=== PATIENT | female | born 1995 | race Caucasian/White ===

== ENCOUNTER 2016-08-27 12:54 | Emergency (ER) | payer SELFPAY ==
[~2016-08-27] VITALS: Ht 172.7 cm; Wt 118.4 kg
--- NOTE | 2016-08-27 14:37 | ED GU-Female ---
General Chief Complaint: -Female Stated Complaint: SPOTTING, POSS Nursing Triage Note: PT REPORTS SHE HAD POSITIVE TEST AT HOME AFTER MOTHER'S DAY. SHE HAD A NEGATIVE TEST AT HEALTH DEPT IN [place], [place] 2 MONTHS AGO. SHE REPORTS VAG BLEEDING STARTING LAST NIGHT. Nursing Sepsis Screen: No Definite Risk Source: patient Exam Limitations: no limitations (DOMINICK MOLINA) Source: patient Exam Limitations: other (PT AND BOYFRIEND VERY DIFFICULT/POOR HISTORIANS AND GIVE MUCH CONFLICTING INFORMATION, AND DIFFICULT TO KEEP ON SUBJECT. ) (TAVON GAY DO) History of Present Illness Time seen by provider: 14:37 Initial Comments patient seen, evaluated, and patient care provided by Dr. Gay. (DOMINICK MOLINA) Time seen by provider: 14:15 Initial Comments 1415 PT C/O VAGINAL BLEEDING SINCE LAST PM PT STATES SHE HAS DONE 2 HOME TESTS--DID ONE ON MOTHER'S DAY AND WAS +, THEN WENT TO HEALTH DEPT 2 MONTHS AGO, AND TEST WAS NEGATIVE PT STATES SHE "NEEDS A BLOOD TEST BECAUSE SHE HAS TOO MANY MALE HORMONES" PT HAS ONLY BEEN SPOTTING--BLOOD ON TISSUE WITH WIPING, AND HAS NOT USED ANY PADS NO CRAMPING NO NAUSEA/VOMITING PT HAS NO IDEA WHEN LMP WAS, BUT WAS > 3 MONTHS AGO. --GIVES MUCH CONFLICTING INFORMATION ABOUT DATES. (TAVON GAY DO) Allergies and Home Medications Allergies Coded Allergies: nicotine (Verified Allergy, Unknown, 08/27/16) allergic to nicotine patches Home Medications Nitrofurantoin Monohyd/M-Cryst 100 Mg Capsule, 100 MG PO BID, #20 Prescribed by: TAVON GAY on 08/27/16 1630 Constitutional: no symptoms reported Genitourinary: see HPI Musculoskeletal: no symptoms reported (TAVON GAY DO) Past Gltihtr-Vualjq-Gyykng Hx Patient Social History Recent Foreign Travel: No Contact w/Someone Who Travel: No Recent Infectious Disease Expo: No (DOMINICK MOLINA) Alcohol Use: Denies Use Recreational Drug Use: No Smoking Status: Never a Smoker (TAVON GAY DO) Surgeries HX Surgeries: No (TAVON GAY DO) Respiratory Hx Respiratory Disorders: No (TAVON GAY DO) Cardiovascular Hx Cardiac Disorders: No (TAVON GAY DO) Neurological Hx Neurological Disorders: No (YA,TAVON K DO) Reproductive System Hx : 2 Hx Para: 0 Hx Total # of Abortions (Spona: 2 (DOMINICK MOLINA) Hx Reproductive Disorders: No (YA,TAVON K DO) Genitourinary Hx Genitourinary Disorders: No (YA,TAVON K DO) Gastrointestinal Hx Gastrointestinal Disorders: No (YA,TAVON K DO) Musculoskeletal Hx Musculoskeletal Disorders: No (YA,TAVON K DO) Endocrine Hx Endocrine Disorders: No (YA,TAVON K DO) HEENT HX ENT Disorders: No (YA,TAVON K DO) Cancer Hx Cancer: No (YA,TAVON K DO) Psychosocial Hx Psychiatric Problems: No (YA,TAVON K DO) Integumentary HX Skin/Integumentary Disorder: No (YA,TAVON K DO) Blood Transfusions Hx Blood Disorders: No (YA,TAVON K DO) Physical Exam Vital Signs (YA,TAVON K DO) Vital Signs Capillary Refill : Less Than 3 Seconds (DOMINICK MOLINA) General Appearance: WD/WN, no apparent distress, other (EXTREMELY MALODOROUS-- BODY ODOR AND REEKS OF ODOR OF CAT URINE) Cardiovascular: regular rate, rhythm, no murmur Respiratory: normal breath sounds Gastrointestinal: normal bowel sounds, non tender, soft Back: normal inspection, no CVA tenderness Extremities: normal inspection, no pedal edema, normal capillary refill Neurologic/Psychiatric: information systems planner II-XII nml as tested, no motor/sensory deficits, alert, oriented x 3 Skin: normal color, warm/dry (YA,TAVON K DO) Progress/Results/Core Measures Results/Orders Lab Results (AY,TAVON K DO) My Orders (YA,TAVON K DO) Vital Signs/I&O (YA,TAVON K DO) Blood Pressure Mean: 109 Progress Note : Progress Note NO BLEEDING OR PAIN OR ANY OTHER SYMPTOMS DURING ER STAY (YA,TAVON K DO) Departure Impression Impression: Primary Impression: examination or test, negative result Additional Impressions: REPORTED IRREGULAR MENSTRUAL BLEEDING Urinary tract infection Disposition: 01 HOME, SELF-CARE Condition: Stable Departure-Patient Inst. Referrals: NO,LOCAL PHYSICIAN (PCP) Primary Care Physician Patient Instructions: IRREGULAR VAGINAL BLEEDING, Urinary Tract Infection, Adult (DC) Add. Discharge Instructions: FOLLOW UP WITH DR. OF CHOICE IF SYMPTOMS PERSISIT All discharge instructions reviewed with patient and/or family. Voiced understanding. Scripts Nitrofurantoin Monohyd/M-Cryst (Macrobid 100 mg Capsule) 100 Mg Capsule 100 MG PO BID, #20 CAP Prov: TAVON GAY DO 08/27/16 DOMINICK MOLINA Aug 27, 2016 14:37 TAVON GAY DO Aug 27, 2016 16:08
[2016-08-27 14:54] LABS: BILIRUBIN,URINE NEGATIVE (NEGATIVE); KETONES,URINE 1+ (NEGATIVE); LEUKOCYTE ESTERASE ,URINE 3+ (NEGATIVE); NITRITE,URINE NEGATIVE (NEGATIVE); PH,URINE 6.5 (5-9); PROTEIN,URINE 4+ (NEGATIVE); UROBILINOGEN,URINE NORMAL (NORMAL)
[2016-08-27 15:05] LABS: WBC,URINE 25-50 /HPF
[2016-08-27 15:27] LABS: BASOPHILS % (AUTO) 0 % (0-10); EOSINOPHILS # (AUTO) 0.2 10^3/uL (0.0-0.3); EOSINOPHILS % (AUTO) 2 % (0-10); LYMPHOCYTES # (AUTO) 2.7 X 10^3 (1.0-4.0); LYMPHOCYTES % (AUTO) 25 % (12-44); MEAN CORPUSCULAR HEMOGLOBIN 30 PG (25-34); MEAN CORPUSCULAR HGB CONC 34 G/DL (32-36); MEAN CORPUSCULAR VOLUME 89 FL (80-99); MEAN PLATELET VOLUME 10.8 FL (7.4-10.4); MONOCYTES # (AUTO) 0.8 X 10^3 (0.0-1.0); MONOCYTES % (AUTO) 7 % (0-12); NEUTROPHILS # (AUTO) 7.3 X 10^3 (1.8-7.8); NEUTROPHILS % (AUTO) 66 % (42-75); PLATELET COUNT 255 10^3/uL (130-400); RED BLOOD COUNT 5.36 10^6/uL (4.35-5.85); RED CELL DISTRIBUTION WIDTH 12.9 % (10.0-14.5)
[2016-08-27 15:52] LABS: BILIRUBIN,URINE NEGATIVE (NEGATIVE); KETONES,URINE NEGATIVE (NEGATIVE); LEUKOCYTE ESTERASE ,URINE 3+ (NEGATIVE); NITRITE,URINE POSITIVE (NEGATIVE); PH,URINE 5 (5-9); PROTEIN,URINE 2+ (NEGATIVE); UROBILINOGEN,URINE NORMAL (NORMAL)
[2016-08-27 16:21] LABS: WBC,URINE >100 /HPF
[2016-08-27] MEDS ORDERED: NITR-65 PO (16:30)
[2016-08-27 16:35] VITALS: BP 142/78
== END 2016-08-27 16:35 | disposition home or self-care (01) ==
LOC: ER 12:57
DX: N39.3 Stress incontinence (female) (male); N39.0 Urinary tract infection, site not specified; Z32.02 Encounter for pregnancy test, result negative
CPT/HCPCS: 36415; 80306; 81000; 84703; 85025; 87077; 87088; 87186; 99283

== ENCOUNTER 2017-02-09 10:44 | Emergency (ER) | payer MEDICAID, OTHER ==
[~2017-02-09] VITALS: Ht 175.3 cm; Wt 110.7 kg
[~2017-02-09 10:44] MED LIST: NITR-65 PO
[2017-02-09 11:21] LABS: BILIRUBIN,URINE NEGATIVE (NEGATIVE); KETONES,URINE NEGATIVE (NEGATIVE); LEUKOCYTE ESTERASE ,URINE 3+ (NEGATIVE); NITRITE,URINE NEGATIVE (NEGATIVE); PH,URINE 8 (5-9); PROTEIN,URINE NEGATIVE (NEGATIVE); UROBILINOGEN,URINE NORMAL (NORMAL)
--- NOTE | 2017-02-09 11:25 | ED GU-Female ---
General Stated Complaint: POS PG TEST-PINK DISCHARGE--7WKS PG Source: patient Exam Limitations: no limitations History of Present Illness Time seen by provider: 11:24 Initial Comments Patient found out that she was on the of this month. Based on last menstrual period she was believed to have been about 7 weeks . She is Ab1. She presents today with pinkish mucousy vaginal discharge. No abdominal cramping. No fevers or chills. Timing/Duration: just prior to arrival Severity/Quality: moderate Location: suprapubic Radiation: none Activities at Onset: eating Prior Genitourinary Problems: none Allergies and Home Medications Allergies Coded Allergies: nicotine (Verified Allergy, Unknown, 08/27/16) allergic to nicotine patches Home Medications Metformin HCl 500 Mg Tablet, Unknown Dose PO, (Reported) Vits #93/Iron Fum/FA 1 Each Tablet, Unknown Dose PO, (Reported) Constitutional: see HPI EENTM: see HPI Respiratory: no symptoms reported Cardiovascular: no symptoms reported Genitourinary: see HPI, discharge Musculoskeletal: no symptoms reported Skin: no symptoms reported Psychiatric/Neurological: No Symptoms Reported Endocrine: No Symptoms Reported Past Lnrwvkm-Ccisyo-Xurbga Hx Patient Social History Recent Foreign Travel: No Contact w/Someone Who Travel: No Reproductive System Hx Reproductive Disorders: No Physical Exam Vital Signs Vital Sign - Last 12Hours 02/09/17 11:20 Temp 97.4 Pulse 99 Resp 18 B/P (MAP) 145/85 (105) Pulse Ox 95 Capillary Refill : General Appearance: WD/WN, no apparent distress HEENT: PERRL/EOMI, normal ENT inspection Neck: non-tender, full range of motion Respiratory: normal breath sounds, no respiratory distress, no accessory muscle use Gastrointestinal: normal bowel sounds, non tender Extremities: normal range of motion, non-tender Neurologic/Psychiatric: alert, normal mood/affect, oriented x 3 Skin: normal color, warm/dry Progress/Results/Core Measures Suspected Sepsis SIRS Temperature: Pulse: Respiratory Rate: Laboratory Tests 02/09/17 11:19: White Blood Count 12.5H Blood Pressure / Mean: Laboratory Tests 02/09/17 11:19: Platelet Count 274 Results/Orders Lab Results Laboratory Tests Test 02/09/17 11:03 02/09/17 11:19 Range/Units Urine Color YELLOW Urine Clarity VERY CLOUDY H Urine pH 8 5-9 Urine Specific Hazel 1.015 L 1.016-1.022 Urine Protein NEGATIVE NEGATIVE Urine Glucose (UA) NEGATIVE NEGATIVE Urine Ketones NEGATIVE NEGATIVE Urine Nitrite NEGATIVE NEGATIVE Urine Bilirubin NEGATIVE NEGATIVE Urine Urobilinogen NORMAL NORMAL MG/DL Urine Leukocyte Esterase 3+ H NEGATIVE Urine RBC (Auto) NEGATIVE NEGATIVE Urine RBC NONE /HPF Urine WBC 10-25 H /HPF Urine Squamous Epithelial Cells 0-2 /HPF Urine Crystals NONE /LPF Urine Amorphous Sediment LARGE VALENTÍN PHOSPHATE H /LPF Urine Bacteria NEGATIVE /HPF Urine Casts NONE /LPF Urine Mucus NEGATIVE /LPF Urine Culture Indicated YES White Blood Count 12.5 H 4.3-11.0 10^3/uL Red Blood Count 5.10 4.35-5.85 10^6/uL Hemoglobin 15.7 11.5-16.0 G/DL Hematocrit 45 35-52 % Mean Corpuscular Volume 89 80-99 FL Mean Corpuscular Hemoglobin 31 25-34 PG Mean Corpuscular Hemoglobin Concent 35 32-36 G/DL Red Cell Distribution Width 12.7 10.0-14.5 % Platelet Count 274 130-400 10^3/uL Mean Platelet Volume 10.6 H 7.4-10.4 FL Neutrophils (%) (Auto) 72 42-75 % Lymphocytes (%) (Auto) 20 12-44 % Monocytes (%) (Auto) 7 0-12 % Eosinophils (%) (Auto) 1 0-10 % Basophils (%) (Auto) 0 0-10 % Neutrophils # (Auto) 9.0 H 1.8-7.8 X 10^3 Lymphocytes # (Auto) 2.6 1.0-4.0 X 10^3 Monocytes # (Auto) 0.8 0.0-1.0 X 10^3 Eosinophils # (Auto) 0.1 0.0-0.3 10^3/uL Basophils # (Auto) 0.1 0.0-0.1 10^3/uL Human Chorionic Gonadotropin, Quant 50110 H <5 MIU/ML My Orders Orders - PRADEEP MARTIN PLY SPLICER Cbc With Automated Diff (02/09/17 11:12) Hcg,Quantitative (02/09/17 11:12) Ua Culture If Indicated (02/09/17 11:12) Abo Rh Type (02/09/17 11:12) Us Ob<14 Wks Sngle W/Transvag (02/09/17 11:23) Urine Culture (02/09/17 11:03) Vital Signs/I&O Vital Sign - Last 12Hours 02/09/17 11:20 Temp 97.4 Pulse 99 Resp 18 B/P (MAP) 145/85 (105) Pulse Ox 95 Capillary Refill : Departure Impression Impression: Primary Impression: Urinary tract infection Additional Impression: Threatened miscarriage Disposition: HOME, SELF-CARE Condition: Stable Departure-Patient Inst. Decision time for Depature: 13:03 Referrals: SCOTT CHAMPION MD (PCP/Family) Primary Care Physician Patient Instructions: Urinary Tract Infection, Adult (DC) Add. Discharge Instructions: 1. Follow-up with Dr. Champion next week to repeat an ultrasound. On your ultrasound today we found the heart rate to be a bit low at 82. This should be reevaluated on ultrasound. Take antibiotics as directed for the urinary tract infection. Scripts Cephalexin (Keflex) 500 Mg Capsule 500 MG PO TID, #21 CAP Prov: PRADEEP MARTIN APRN 02/09/17 Work/School Note: Work Release Form Date Seen in the Emergency Department: Feb 09, 2017 Return to Work: Feb 10, 2017 PRADEEP MARTIN APRN Feb 09, 2017 11:25
[2017-02-09 11:30] LABS: BASOPHILS # (AUTO) 0.1 10^3/uL (0.0-0.1); BASOPHILS % (AUTO) 0 % (0-10); EOSINOPHILS # (AUTO) 0.1 10^3/uL (0.0-0.3); EOSINOPHILS % (AUTO) 1 % (0-10); LYMPHOCYTES # (AUTO) 2.6 X 10^3 (1.0-4.0); LYMPHOCYTES % (AUTO) 20 % (12-44); MEAN CORPUSCULAR HEMOGLOBIN 31 PG (25-34); MEAN CORPUSCULAR HGB CONC 35 G/DL (32-36); MEAN CORPUSCULAR VOLUME 89 FL (80-99); MEAN PLATELET VOLUME 10.6 FL (7.4-10.4); MONOCYTES # (AUTO) 0.8 X 10^3 (0.0-1.0); MONOCYTES % (AUTO) 7 % (0-12); NEUTROPHILS % (AUTO) 72 % (42-75); PLATELET COUNT 274 10^3/uL (130-400); RED CELL DISTRIBUTION WIDTH 12.7 % (10.0-14.5); WHITE BLOOD COUNT 12.5 10^3/uL (4.3-11.0)
[2017-02-09 11:35] LABS: SQUAMOUS EPITHELIAL CELL,UR 0-2 /HPF
[2017-02-09] MEDS ORDERED: PREN-102 PO (11:45)
[2017-02-09] MEDS ORDERED: METF500T4 PO (11:45)
--- NOTE | 2017-02-09 12:59 | Diagnostic Imaging Report ---
First trimester OB ultrasound. INDICATION: Spotting. FINDINGS: There is a normal-appearing single intrauterine . An embryo is seen with cardiac activity at 82 beats per minute. The crown-rump length is at 6 weeks and 3 days. TERRENCE is 10/02/2017. There is flattening of the gestational sac. No subchorionic hemorrhage. The left ovary is 3.3 x 2.6 x 2 cm. A 2.3 cm heterogenous lesion in the left ovary is seen without internal vascularity, probably representing a hemorrhagic corpus luteum cyst. Arterial and venous waveforms are seen in the left ovary. The right ovary is 2.7 x 1.9 x 2.2 cm with arterial and venous waveforms demonstrated. IMPRESSION: There is a single intrauterine with low heart rate of the embryo at 82 beats per minute. Slight flattening of the gestational sac is seen. Serial followup beta-hCG and a followup ultrasound in one week is suggested to evaluate progression of this . Dictated by: Dictated on workstation # [id number]
[2017-02-09] MEDS ORDERED: CEPH-507 PO (13:05)
[2017-02-09 13:15] VITALS: BP 145/85
== END 2017-02-09 13:15 | disposition home or self-care (01) ==
LOC: EDUNIT# 10:44 → ER 10:48
DX: O20.0 Threatened abortion (principal); O23.41 Unspecified infection of urinary tract in pregnancy, first trimester; Z3A.01 Less than 8 weeks gestation of pregnancy
CPT/HCPCS: 36415; 76801; 76817; 81000; 84702; 85025; 86900; 86901; 87077; 87088; 87186; 99282

== ENCOUNTER 2017-02-09 16:17 | Emergency (ER) | payer MEDICAID ==
[~2017-02-09 16:17] MED LIST changes: +CEPH-507 PO; +METF500T4 PO; +PREN-102 PO
== END 2017-02-09 17:05 | disposition left against medical advice (07) ==
LOC: EDUNIT# 16:17 → ER 16:19
DX: Z04.3 Encounter for examination and observation following other accident (principal); W19.XXXA Unspecified fall, initial encounter

== ENCOUNTER → 2017-02-10 | Outpatient (CLI) | payer MEDICAID | LOC: LAB 10:51 | PROVIDERS: ATTEND Family Medicine | DX: O20.0 Threatened abortion (principal) | CPT/HCPCS: 36415; 84702 ==

== ENCOUNTER → 2017-02-16 | Outpatient (CLI) | payer MEDICAID ==
--- NOTE | 2017-02-16 14:10 | Diagnostic Imaging Report ---
PROCEDURE: US OB SINGLE FETUS <14 WKS. TECHNIQUE: Multiple real-time grayscale images were obtained over the gravid uterus in various projections. INDICATION: Threatened . COMPARISON: 02/09/2017 FINDINGS: There is a single intrauterine with an embryo is seen with the crown-rump length of 7 weeks and 3 days. heart rate at 136 beats per minute is seen. There is no subchorionic hemorrhage. The maternal adnexa are obscured by bowel gas. When compared to the prior study there is interval normal growth. The right ovary is 3.4 CM in length and appears normal with color Doppler seen. The left ovary is obscured by bowel gas. IMPRESSION: Live single intrauterine with normal interval growth. Dictated by: Dictated on workstation # [id number]
== END ==
LOC: RAD 09:54
PROVIDERS: ATTEND Family Medicine
DX: Z34.91 Encounter for supervision of normal pregnancy, unspecified, first trimester (principal); Z3A.12 12 weeks gestation of pregnancy
CPT/HCPCS: 76801

== ENCOUNTER 2017-03-26 07:02 | Emergency (ER) | payer MEDICAID ==
[~2017-03-26] VITALS: Ht 175.3 cm; Wt 112.5 kg
[2017-03-26] MEDS ORDERED: NS IV 1000 ML 1,000 ML IV ONE (08:04)
[2017-03-26] MEDS ORDERED: PROMETHAZINE INJ 25 MG/ML (PHENERGAN) AMP IVP ONE (08:15)
[2017-03-26 09:02] LABS: BUN/CREATININE RATIO 11; CARBON DIOXIDE 21 MMOL/L (21-32); CHLORIDE 102 MMOL/L (98-107); CREATININE SERUM 0.73 MG/DL (0.60-1.30); GFR ESTIMATED > 60; GLUCOSE 102 MG/DL (70-105); POTASSIUM 4.1 MMOL/L (3.6-5.0); SODIUM 135 MMOL/L (135-145)
[2017-03-26 09:24] LABS: BILIRUBIN,URINE NEGATIVE (NEGATIVE); CLARITY,URINE CLEAR; COLOR,URINE YELLOW; GLUCOSE, URINE (UA) NEGATIVE (NEGATIVE); KETONES,URINE NEGATIVE (NEGATIVE); LEUKOCYTE ESTERASE ,URINE 3+ (NEGATIVE); NITRITE,URINE NEGATIVE (NEGATIVE); PH,URINE 6.5 (5-9); PROTEIN,URINE NEGATIVE (NEGATIVE); UROBILINOGEN,URINE NORMAL (NORMAL)
[2017-03-26 09:33] LABS: BACTERIA,URINE FEW /HPF; WBC,URINE >100 /HPF
[2017-03-26] MEDS ORDERED: cefTRIAXone INJECTION 1,000 MG in NS (IVPB) 50 ML IV ONE (09:45)
[2017-03-26] MEDS ORDERED: CEPH-507 PO (09:48)
[2017-03-26] MEDS ORDERED: DOXY1TAB3 PO (09:48)
[2017-03-26] MEDS ORDERED: PROM25TA14 PO (09:48)
--- NOTE | 2017-03-26 09:48 | ED GI ---
General Chief Complaint: Abdominal/GI Problems Stated Complaint: VOMITING Nursing Triage Note: c/o persistant vomiting since last night. Pt is 13 weeks . Sepsis Screen: No Definite Risk Source of Information: Patient, Old Records Exam Limitations: No Limitations History of Present Illness Date Seen by Provider: Mar 26, 2017 Time Seen by Provider: 07:43 Initial Comments This 22-year-old young lady presents to the emergency room at about 13 weeks gestational age with complaints of persistent vomiting since last night. She denies any pain, vaginal bleeding, discharge, or urinary changes. She has had some nausea through the but this became more intense last night and has been persistent. Dr. Champion is her provider. Allergies and Home Medications Allergies Coded Allergies: nicotine (Verified Allergy, Unknown, 08/27/16) allergic to nicotine patches Home Medications Cephalexin 500 Mg Capsule, 500 MG PO TID, #21 Prescribed by: PRADEEP MARTIN on 02/09/17 1305 Cephalexin 500 Mg Capsule, 500 MG PO QID, #28 Prescribed by: ELFEGO ZARATE on 03/26/17 0948 Doxylamine/Pyridoxine HCl 1 Each Tablet.dr, 2 EACH PO HS, #60 Prescribed by: ELFEGO ZARATE on 03/26/17 0948 Metformin HCl 500 Mg Tablet, Unknown Dose PO, (Reported) Vits #93/Iron Fum/FA 1 Each Tablet, Unknown Dose PO, (Reported) Promethazine HCl 25 Mg Tablet, 25 MG PO Q6H PRN for NAUSEA/VOMITING, #10 Prescribed by: ELFEGO ZARATE on 03/26/17 0948 Review of Systems Constitutional: no symptoms reported EENTM: No Symptoms Reported Respiratory: No Symptoms Reported Cardiovascular: No Symptoms Reported Gastrointestinal: No Symptoms Reported Genitourinary: See HPI Musculoskeletal: no symptoms reported Skin: no symptoms reported Psychiatric/Neurological: No Symptoms Reported Endocrine: No Symptoms Reported Past Avnhtvl-Udjzqw-Yxkjeb Hx Patient Social History Alcohol Use: Denies Use Recreational Drug Use: No Smoking Status: Current Everyday Smoker Recent Foreign Travel: No Contact w/Someone Who Travel: No Recent Infectious Disease Expo: No Recent Hopitalizations: No Surgeries History of Surgeries: Yes Surgeries: Renal (History of ureteral stent), Tonsillectomy Respiratory History of Respiratory Disorde: No Cardiovascular History of Cardiac Disorders: No Neurological History of Neurological Disord: No Reproductive System : Yes Hx Reproductive Disorders: No Genitourinary History of Genitourinary Disor: Yes (History of urinary tract infections) Genitourinary Disorders: Kidney Stones Gastrointestinal History of Gastrointestinal Di: No Musculoskeletal History of Musculoskeletal Dis: No Endocrine History of Endocrine Disorders: Yes (Hyperglycemia) Cancer History of Cancer: No Psychosocial History of Psychiatric Problem: No Integumentary History of Skin or Integumenta: No Blood Transfusions History of Blood Disorders: No Physical Exam Vital Signs VS - Last 72 Hours, by Label 03/26/17 03/26/17 07:47 10:26 Temp 98.8 98.8 Pulse 107 90 Resp 16 16 B/P (MAP) 142/85 (104) Pulse Ox 98 O2 Delivery Room Air Capillary Refill : Less Than 3 Seconds General Appearance: WD/WN, no apparent distress HEENT: PERRL/EOMI, normal ENT inspection, pharynx normal Neck: normal inspection Respiratory: lungs clear, normal breath sounds, no respiratory distress, no accessory muscle use Cardiovascular: regular rate, rhythm, no edema, no murmur Gastrointestinal: normal bowel sounds, non tender, soft Extremities: normal inspection, no pedal edema Neurologic/Psychiatric: surgical oncologist II-XII nml as tested, no motor/sensory deficits, alert, normal mood/affect, oriented x 3 Skin: normal color, warm/dry Progress/Results/Core Measures Results/Orders Lab Results Laboratory Tests Test 03/26/17 08:35 03/26/17 09:18 Range/Units Sodium Level 135 135-145 MMOL/L Potassium Level 4.1 3.6-5.0 MMOL/L Chloride Level 102 98-107 MMOL/L Carbon Dioxide Level 21 21-32 MMOL/L Anion Gap 12 5-14 MMOL/L Blood Urea Nitrogen 8 7-18 MG/DL Creatinine 0.73 0.60-1.30 MG/DL Estimat Glomerular Filtration Rate > 60 BUN/Creatinine Ratio 11 Glucose Level 102 70-105 MG/DL Calcium Level 10.0 8.5-10.1 MG/DL Urine Color YELLOW Urine Clarity CLEAR Urine pH 6.5 5-9 Urine Specific [place] 1.015 L 1.016-1.022 Urine Protein NEGATIVE NEGATIVE Urine Glucose (UA) NEGATIVE NEGATIVE Urine Ketones NEGATIVE NEGATIVE Urine Nitrite NEGATIVE NEGATIVE Urine Bilirubin NEGATIVE NEGATIVE Urine Urobilinogen NORMAL NORMAL MG/DL Urine Leukocyte Esterase 3+ H NEGATIVE Urine RBC (Auto) 2+ H NEGATIVE Urine RBC 2-5 H /HPF Urine WBC >100 H /HPF Urine Squamous Epithelial Cells 2-5 /HPF Urine Crystals NONE /LPF Urine Bacteria FEW H /HPF Urine Casts NONE /LPF Urine Mucus NEGATIVE /LPF Urine Culture Indicated YES Micro Results Microbiology 03/26/17 Urine Culture - Preliminary, Resulted Staphylococcus aureus Strep, Beta Hemolytic Group B My Orders Orders - ELFEGO ORTIZ MD Ua Culture If Indicated (03/26/17 07:43) Saline Lock/Iv-Start (03/26/17 08:04) Ns Iv 1000 Ml (Sodium Chloride 0.9%) (03/26/17 08:04) Basic Metabolic Panel (03/26/17 08:04) Promethazine Injection (Phenergan Injec (03/26/17 08:15) Urine Culture (03/26/17 09:18) Ceftriaxone Injection (Rocephin Injectio (03/26/17 09:45) Iv Push Singing Waiter Or Waitress Ed (03/26/17 ) Medications Given in ED Vital Signs/I&O Vital Sign - Last 12Hours 03/26/17 03/26/17 07:47 10:26 Temp 98.8 98.8 Pulse 107 90 Resp 16 16 B/P (MAP) 142/85 (104) Pulse Ox 98 O2 Delivery Room Air Blood Pressure Mean: 104 Progress Note #1: Progress Note Patient was treated with IV fluids and Phenergan. Urinary tract infection was found by urinalysis. Rocephin was administered by IV route. Patient had no vomiting during her ER visit. Progress Note #2: Progress Note 2017 - URINE CULTURE WAS NOTED TO BE GBS+ Departure Impression Impression: Primary Impression: Nausea and vomiting Qualified Codes: R11.2 - Nausea with vomiting, unspecified Additional Impressions: Urinary tract infection Qualified Codes: N39.0 - Urinary tract infection, site not specified Qualified Codes: Z3A.12 - 12 weeks gestation of Group B streptococcal infection in Disposition: 01 HOME, SELF-CARE Condition: Improved Departure-Patient Inst. Decision time for Depature: 09:45 Referrals: SCOTT CHAMPION MD (PCP/Family) Primary Care Physician Patient Instructions: Nausea and Vomiting of (DC), Urinary Tract Infection, Adult (DC) Add. Discharge Instructions: Drink plenty of clear liquids by sipping on clear liquids throughout the day. Eat small healthy meals and snacks throughout the day. Eating frequently will help prevent nausea. Take Diclegis at bedtime to prevent nausea and vomiting. Take Phenergan (promethazine) as prescribed for presumed of nausea. Complete your antibiotics as prescribed. Follow-up with Dr. Champion on Monday to review urine culture results. All discharge instructions reviewed with patient and/or family. Voiced understanding. Scripts Promethazine HCl (Promethazine Tablet) 25 Mg Tablet 25 MG PO Q6H Y for NAUSEA/VOMITING, #10 TAB Prov: ELFEGO ORTIZ MD 03/26/17 Doxylamine/Pyridoxine HCl (Diclegis Dr 10-10 mg Tablet) 1 Each Tablet.dr 2 EACH PO HS, #60 TAB Prov: ELFEOG ORTIZ MD 03/26/17 Cephalexin (Keflex) 500 Mg Capsule 500 MG PO QID, #28 CAP Prov: ELFEGO ORTIZ MD 03/26/17 Copy Copies To 1: SCOTT CHAMPION MD, JOSHUA T MD Mar 26, 2017 09:48
[2017-03-26 10:26] VITALS: BP 138/80
== END 2017-03-26 10:26 | disposition home or self-care (01) ==
LOC: EDUNIT# 07:02 → ER 07:03
DX: O23.41 Unspecified infection of urinary tract in pregnancy, first trimester (principal); O99.331 Smoking (tobacco) complicating pregnancy, first trimester; F17.210 Nicotine dependence, cigarettes, uncomplicated; Z3A.13 13 weeks gestation of pregnancy; Z79.84 Long term (current) use of oral hypoglycemic drugs; Z91.048 Other nonmedicinal substance allergy status
CPT/HCPCS: 36415; 80048; 81000; 87088; 96374; 96375

== ENCOUNTER → 2017-04-28 | Outpatient (CLI) | payer MEDICAID ==
[~2017-04-28] MED LIST changes: +DOXY1TAB3 PO; +PROM25TA14 PO
--- NOTE | 2017-04-28 11:52 | Diagnostic Imaging Report ---
INDICATION: Second trimester . COMPARISON: Comparison is made with prior ultrasound from 02/16/2017. TECHNIQUE: Multiple real-time grayscale images were obtained over the gravid uterus. COMPARISON: 02/16/2017. FINDINGS: There is a single live fetus in a transverse presentation. The placenta is posterior and fundal. The amniotic fluid volume is normal. heart rate was recorded at 152 beats per minute. survey is limited due to early gestation but no gross abnormality is identified. IMPRESSION: Single live IUP approximately 17 weeks 5 days gestational age showing normal interval growth when compared to prior exam from 02/16/2017. No complicating features are detected. Dictated by: Dictated on workstation # [id number]
== END ==
LOC: RAD 09:51
PROVIDERS: ATTEND Family Medicine
DX: Z34.92 Encounter for supervision of normal pregnancy, unspecified, second trimester (principal); Z3A.17 17 weeks gestation of pregnancy
CPT/HCPCS: 76805

== ENCOUNTER → 2017-06-27 | Outpatient (CLI) | payer MEDICAID ==
[~2017-06-27] MED LIST changes: -METF500T4 PO; +METF500T5 PO
--- NOTE | 2017-06-27 12:23 | Diagnostic Imaging Report ---
INDICATION: , second trimester. TECHNIQUE: Multiple real-time grayscale images were obtained over the gravid uterus. COMPARISON: 02/16/2017 and 04/28/2017. FINDINGS: The previous OB ultrasound exam of 04/28/2017 noted a single live fetus of approximately 17 weeks 5 days gestation +/-1 week. On this exam, the fetus is again identified. The fetus is cephalic in presentation and heart motion was noted with a rate of 155 BPM recorded. However, the four-chamber heart view and the upper lip of the fetus were not optimally visualized. It may prove worthwhile to have a short-term (4-6 week) followup exam for further study. There is no other abnormality noted. The growth parameters are fairly uniform and have progressed as expected since the prior exam. The placenta is posterior and there is no previa. The amniotic fluid volume is within normal limits. IMPRESSION: 1. There is a single live fetus of approximately 26 weeks 1 day gestation +/-1 week. The EDC remains October 02, 2017. 2. There were no abnormalities identified but the four-chamber heart view and the lip were not optimally imaged. Recommendations, as above. 3. The growth parameters have progressed as expected since the prior exam. Biometrical measurements are as follows: Biparietal 6.3 cm, age 25 weeks 3 days. Head circumference 22.8 cm, age 24 weeks 6 days. Abdominal circumference 21.0 cm, age 25 weeks 4 days. Femur length 4.8 cm, age 26 weeks 0 days. Sonographic estimate age: 25 weeks 4 days. Sonographic estimated date of delivery: 10/06/2017. Estimated Weight: 830 gm (+/- 121 gm). LMP percentile: 19%. heart rate: 155 beats per minute. number: 1 of 1. Dictated by: Dictated on workstation # [id number]
== END ==
LOC: RAD 09:53
PROVIDERS: ATTEND Family Medicine
DX: Z34.02 Encounter for supervision of normal first pregnancy, second trimester (principal); Z3A.26 26 weeks gestation of pregnancy
CPT/HCPCS: 76816

== ENCOUNTER 2017-08-18 20:14 | Outpatient (CLI) | payer MEDICAID ==
[~2017-08-18] VITALS: Ht 177.8 cm; Wt 114.8 kg
[2017-08-18 20:30] VITALS: BP 134/77
[2017-08-18 20:39] LABS: BILIRUBIN,URINE NEGATIVE (NEGATIVE); CLARITY,URINE CLEAR; COLOR,URINE YELLOW; GLUCOSE, URINE (UA) NEGATIVE (NEGATIVE); KETONES,URINE NEGATIVE (NEGATIVE); LEUKOCYTE ESTERASE ,URINE 3+ (NEGATIVE); NITRITE,URINE NEGATIVE (NEGATIVE); PH,URINE 6 (5-9); PROTEIN,URINE 1+ (NEGATIVE); UROBILINOGEN,URINE NORMAL (NORMAL)
[2017-08-18 20:45] LABS: BACTERIA,URINE TRACE /HPF; CALCIUM OXALATE CRYSTALS,UR RARE /LPF; RBC,URINE RARE /HPF
[2017-08-18 20:50] VITALS: BP 133/65
[2017-08-18] MEDS ORDERED: LACTATED RINGERS 1,000 ML IV ONE (21:15)
[2017-08-18 21:28] LABS: BASOPHILS % (AUTO) 0 % (0-10); EOSINOPHILS # (AUTO) 0.3 10^3/uL (0.0-0.3); EOSINOPHILS % (AUTO) 2 % (0-10); HEMATOCRIT 27 % (35-52); HEMOGLOBIN 9.1 G/DL (11.5-16.0); LYMPHOCYTES # (AUTO) 2.3 X 10^3 (1.0-4.0); LYMPHOCYTES % (AUTO) 18 % (12-44); MEAN CORPUSCULAR HEMOGLOBIN 30 PG (25-34); MEAN CORPUSCULAR HGB CONC 34 G/DL (32-36); MEAN CORPUSCULAR VOLUME 87 FL (80-99); MEAN PLATELET VOLUME 10.3 FL (7.4-10.4); MONOCYTES % (AUTO) 8 % (0-12); NEUTROPHILS # (AUTO) 9.2 X 10^3 (1.8-7.8); NEUTROPHILS % (AUTO) 72 % (42-75); PLATELET COUNT 294 10^3/uL (130-400); RED BLOOD COUNT 3.08 10^6/uL (4.35-5.85); RED CELL DISTRIBUTION WIDTH 13.8 % (10.0-14.5); WHITE BLOOD COUNT 12.8 10^3/uL (4.3-11.0)
[2017-08-18 21:51] LABS: ALANINE AMINOTRANSFERASE 8 U/L (0-55); ALBUMIN 3.3 GM/DL (3.2-4.5); ALKALINE PHOSPHATASE 96 U/L (40-136); BILIRUBIN,TOTAL 0.2 MG/DL (0.1-1.0); BUN/CREATININE RATIO 15; CALCIUM 9.5 MG/DL (8.5-10.1); CARBON DIOXIDE 19 MMOL/L (21-32); CHLORIDE 109 MMOL/L (98-107); CREATININE SERUM 0.75 MG/DL (0.60-1.30); GFR ESTIMATED > 60; GLUCOSE 85 MG/DL (70-105); POTASSIUM 3.9 MMOL/L (3.6-5.0); SODIUM 139 MMOL/L (135-145); TOTAL PROTEIN 5.9 GM/DL (6.4-8.2); URIC ACID 5.7 MG/DL (2.6-7.2)
[2017-08-18 22:00] VITALS: BP 121/63
--- NOTE | 2017-08-21 13:10 | Physician Query-Final Dx ---
ANTONIO WITT 08/21/17 1310: Clinic Account Progress/Dx Physician Query: Please give diagnosis Date of Service Aug 18, 2017 at 20:14 HERMILO MENSAH MD 08/28/17 0853: Clinic Account Progress/Dx DIAGNOSIS: Diagnosis 33 weeks gestation Abdominal pain/pressure with no active labor ANTONIO WITT Aug 21, 2017 13:10 HERMILO MENSAH MD Aug 28, 2017 08:53
[2017-09-19] MEDS ORDERED: FERR-84 PO (21:13)
== END 2017-08-18 22:17 ==
LOC: WSo 20:14 → LDRP 20:15 → WSo 22:17
PROVIDERS: ATTEND Family Medicine
DX: O26.93 Pregnancy related conditions, unspecified, third trimester (principal); R10.31 Right lower quadrant pain; R10.32 Left lower quadrant pain; R10.2 Pelvic and perineal pain; Z3A.33 33 weeks gestation of pregnancy
CPT/HCPCS: 36415; 80053; 81000; 82570; 83615; 84156; 84550; 85025; 87088; 96360; 99213

== ENCOUNTER 2017-09-09 00:41 | Outpatient (CLI) | payer MEDICAID ==
[~2017-09-09] VITALS: Ht 175.3 cm; Wt 114.8 kg
[2017-09-09 00:55] VITALS: BP 147/85
[2017-09-09] MEDS ORDERED: hydrOXYzine (VISTARIL) 25 MG CAP ONE (01:28)
[2017-09-09] MEDS ORDERED: hydrOXYzine (VISTARIL) 25 MG CAP PO ONE (01:30)
--- NOTE | 2017-09-11 20:01 | Physician Query-Final Dx ---
ANTONIO WITT 09/11/17 2000: Clinic Account Progress/Dx Physician Query: Please give diagnosis Date of Service Sep 09, 2017 at 00:41 ROE CASTILLO MD 09/19/17 2019: Clinic Account Progress/Dx DIAGNOSIS: Diagnosis Contractions in the third trimester ANTONIO WITT Sep 11, 2017 20:00 ROE CASTILLO MD Sep 19, 2017 20:19
[2017-09-19] MEDS ORDERED: FERR-84 PO (21:13)
== END 2017-09-09 03:30 | disposition home or self-care (01) ==
LOC: WSo 00:41 → LDRP 00:45 → WSo 03:30
PROVIDERS: ATTEND Family Medicine
DX: O47.03 False labor before 37 completed weeks of gestation, third trimester (principal); Z3A.36 36 weeks gestation of pregnancy
CPT/HCPCS: 99214

== ENCOUNTER 2017-09-09 23:02 | Outpatient (CLI) | payer MEDICAID ==
[~2017-09-09] VITALS: Ht 175.3 cm; Wt 114.8 kg
[2017-09-09 23:40] VITALS: BP 139/78
--- NOTE | 2017-09-11 20:00 | Physician Query-Final Dx ---
ANTONIO WITT 09/11/17 2000: Clinic Account Progress/Dx Physician Query: Please give diagnosis Date of Service Sep 09, 2017 at 23:02 ROE CASTILLO MD 09/19/17 2020: Clinic Account Progress/Dx DIAGNOSIS: Diagnosis See previous note ANTONIO WITT Sep 11, 2017 20:00 ROE CASTILLO MD Sep 19, 2017 20:20
[2017-09-19] MEDS ORDERED: FERR-84 PO (21:13)
== END 2017-09-09 23:50 | disposition home or self-care (01) ==
LOC: WSo 23:02 → LDRP 23:03 → WSo 23:50
PROVIDERS: ATTEND Family Medicine
DX: O47.03 False labor before 37 completed weeks of gestation, third trimester (principal); Z3A.36 36 weeks gestation of pregnancy
CPT/HCPCS: 99213

== ENCOUNTER 2017-09-27 19:00 | Inpatient (IN) | payer MEDICAID ==
[~2017-09-27] VITALS: Ht 175.3 cm; Wt 115.3 kg
[~2017-09-27 19:00] MED LIST changes: +FERR-84 PO
[2017-09-27 19:30] VITALS: BP 141/81
[2017-09-27 19:56] VITALS: BP 140/87
[2017-09-27] MEDS ORDERED: ZOLPIDEM 5 MG (AMBIEN) TAB PO PRN (20:00)
[2017-09-27] MEDS ORDERED: MINERAL OIL CONCENTRATE 99.9% 15 ML UDC TOP PRN (20:00)
[2017-09-27] MEDS ORDERED: DINOPROSTONE 10 MG (CERVIDIL) INSERT PV NR (20:00)
[2017-09-27] MEDS: D5 LR IV SOLUTION 1,000 ML IV SCH (20:26)
[2017-09-27 20:30] VITALS: BP 134/93
[2017-09-27 20:33] LABS: BASOPHILS % (AUTO) 0 % (0-10); EOSINOPHILS # (AUTO) 0.1 10^3/uL (0.0-0.3); EOSINOPHILS % (AUTO) 1 % (0-10); HEMATOCRIT 30 % (35-52); HEMOGLOBIN 10.1 G/DL (11.5-16.0); LYMPHOCYTES # (AUTO) 2.7 X 10^3 (1.0-4.0); LYMPHOCYTES % (AUTO) 22 % (12-44); MEAN CORPUSCULAR HEMOGLOBIN 30 PG (25-34); MEAN CORPUSCULAR HGB CONC 34 G/DL (32-36); MEAN CORPUSCULAR VOLUME 88 FL (80-99); MEAN PLATELET VOLUME 10.5 FL (7.4-10.4); MONOCYTES # (AUTO) 0.8 X 10^3 (0.0-1.0); MONOCYTES % (AUTO) 6 % (0-12); NEUTROPHILS # (AUTO) 9.1 X 10^3 (1.8-7.8); NEUTROPHILS % (AUTO) 71 % (42-75); PLATELET COUNT 301 10^3/uL (130-400); RED BLOOD COUNT 3.38 10^6/uL (4.35-5.85); RED CELL DISTRIBUTION WIDTH 14.6 % (10.0-14.5); WHITE BLOOD COUNT 12.7 10^3/uL (4.3-11.0)
[2017-09-27 21:30] VITALS: BP 134/82
[2017-09-27] MEDS ORDERED: CATHETER FLUSH 10 ML SYR IV SCH (22:00)
[2017-09-27 22:30] VITALS: BP 135/82
[2017-09-27 23:30] VITALS: BP 140/100
[2017-09-28] VITALS (63 sets, daily range): BP systolic 119–161; BP diastolic 58–95
[2017-09-28] MEDS: D5 LR IV SOLUTION 1,000 ML IV SCH ×2 (03:28→12:25)
[2017-09-28] MEDS ORDERED: OXYTOCIN/NORMAL SALINE 500 ML IV SCH ×2 (05:52→19:13)
[2017-09-28] MEDS ORDERED: OXYTOCIN/NORMAL SALINE 500 ML IV ONE (05:55)
[2017-09-28] MEDS ORDERED: AMPICILLIN 2000 MG INJECTION (IM/IV) ONE (05:56)
[2017-09-28] MEDS ORDERED: AMPICILLIN INJECTION 2,000 MG in NS (IVPB) 50 ML IV SCH (05:56)
[2017-09-28] MEDS ORDERED: NS (IVPB) 50 ML ONE ×2 (05:56→14:38)
[2017-09-28] MEDS ORDERED: BUTORPHANOL INJ 2 MG/ML (STADOL) VIAL IV PRN (06:00)
[2017-09-28] MEDS ORDERED: LACTATED RINGERS 1,000 ML IV ONE (07:37)
--- NOTE | 2017-09-28 07:39 | History & Physical-OB ---
OB - Chief Complaint & HPI Date/Time Date of Admission: Date of Admission: Sep 27, 2017 at 19:00 Time Seen by Provider: 07:00 Chief Complaint/History OB-Reason for Admission/Chief: Induction of Labor Hx : 7 Hx Para: 0 Expected Date of Delivery: Oct 02, 2017 Gestational Age in Weeks: 39 Gestational Age in Days: 3 Admission Nurse Assessment Rev: Yes History of Labs GBS positive Allergies and Home Medications Allergies Coded Allergies: strawberry (Verified Allergy, Unknown, 08/18/17) Home Medications Ferrous Sulfate 325 Mg Tablet, 325 MG PO DAILY PRN, (Reported) Patient Home Medication List Home Medication List Reviewed: Yes OB - History Hx of Present Care: Yes Ultrasounds: Normal mid trimester US Obstetrical Complications: None Medical Complications: None Delivery History Hx Blood Disorders: No Patient Past Medical History Kidney "issues" 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 Social History/Family History HIV/AIDS: No Recent Infectious Disease Expo: No Sexually Transmitted Disease: No Alcohol Use: Denies Use Recreational Drug Use: No OB - Admission Exam Physical Exam Vitals: Vital Signs 09/28/17 09/28/17 05:30 07:00 Temp 96.3 Pulse 62 Resp 18 B/P (MAP) 129/70 (89) Pulse Ox 99 O2 Delivery Room Air HEENT: Moist Membranes Heart: Rhythm Normal Lungs: Clear Abdomen: Gravid Cervical Dilatation: 1cm Effacement: 50% Station: -3 Membranes: Intact Heart Rate: 130's Accelerations: Accelerations Present Short Term Variability: Present Thermometer Maker Variability: Average (6-25) Contractions on Admission: 6-10 Minutes Apart Intensity: Mild Roque Scoring Tool (Modified) Dilation (cm): 1-2cm (1) Effacement (%): 31-51% (1) Descent/Station: -3 (0) Cervix Consistency: Medium(1) Cervix Position: Middle/Mid-Position (1) Roque Score: 4 Labs Laboratory Tests Test 09/27/17 20:20 Range/Units White Blood Count 12.7 H 4.3-11.0 10^3/uL Red Blood Count 3.38 L 4.35-5.85 10^6/uL Hemoglobin 10.1 L 11.5-16.0 G/DL Hematocrit 30 L 35-52 % Mean Corpuscular Volume 88 80-99 FL Mean Corpuscular Hemoglobin 30 25-34 PG Mean Corpuscular Hemoglobin Concent 34 32-36 G/DL Red Cell Distribution Width 14.6 H 10.0-14.5 % Platelet Count 301 130-400 10^3/uL Mean Platelet Volume 10.5 H 7.4-10.4 FL Neutrophils (%) (Auto) 71 42-75 % Lymphocytes (%) (Auto) 22 12-44 % Monocytes (%) (Auto) 6 0-12 % Eosinophils (%) (Auto) 1 0-10 % Basophils (%) (Auto) 0 0-10 % Neutrophils # (Auto) 9.1 H 1.8-7.8 X 10^3 Lymphocytes # (Auto) 2.7 1.0-4.0 X 10^3 Monocytes # (Auto) 0.8 0.0-1.0 X 10^3 Eosinophils # (Auto) 0.1 0.0-0.3 10^3/uL Basophils # (Auto) 0.0 0.0-0.1 10^3/uL OB - Assessment/Plan/Diagnosis Assessment Assessment: induction of labor Admission Dx IUP at term 39w3d gestation Elevated BP at term Admission Status: Inpatient Order (span 2 midnights) Reason for Inpatient Admission: L&D Plan Plan: Induction (by cervidil) Other Plan planning on epidural if anesthesia agrees. ampicillin protochol due to GBS positive at 36 weeks by vaginal culture. SCOTT CHAMPION MD Sep 28, 2017 07:39
[2017-09-28] MEDS: LACTATED RINGERS 1,000 ML IV SCH ×2 (07:45→18:40)
[2017-09-28] MEDS ORDERED: SUFENTA 0.6MCG/ML BUPIVA 0.125 100 ML ONE (08:41)
[2017-09-28] MEDS ORDERED: fentaNYL INJECTION 100 MCG/2 ML AMP ONE ×3 (09:28→19:27)
[2017-09-28] MEDS ORDERED: BUPIVACAINE 0.25% 30 ML (SENSORCAINE) VIAL ONE (09:28)
[2017-09-28] MEDS ORDERED: LIDOCAINE PF 2% 5 ML (XYLOCAINE) VIAL ONE ×2 (09:28→18:39)
[2017-09-28] MEDS: EPIDURAL (SUFENTA 0.6MCG/ML BUPIVA 0.125%) 100 ML BAG EPI PRN ×2 (09:48→17:19)
[2017-09-28] MEDS ORDERED: LACTATED RINGERS 1,000 ML IV SCH (10:08)
[2017-09-28] MEDS ORDERED: NALOXONE 0.4 MG/ML 1 ML (NARCAN) VIAL IV PRN ×2 (10:15)
[2017-09-28] MEDS ORDERED: ONDANSETRON 4 MG/2 ML (SDV) Z0FRAN IV PRN ×2 (10:15)
[2017-09-28] MEDS ORDERED: diphenhydrAMINE 50 MG/ML INJ (BENADRYL) IV PRN ×2 (10:15)
[2017-09-28] MEDS ORDERED: EPIDURAL (SUFENTA 0.6MCG/ML BUPIVA 0.125%) 100 ML BAG EPI PRN (10:15)
[2017-09-28] MEDS: AMPICILLIN INJECTION 1,000 MG in NS (IVPB) 50 ML IV SCH ×2 (10:25→14:40)
[2017-09-28] MEDS ORDERED: AMPICILLIN 1000 MG INJECTION (IV/IM) ONE (14:38)
--- NOTE | 2017-09-28 17:37 | Progress Note (SOAP) ---
Subjective Subjective/Events-last exam Patient currently in labor receiving 30 milliunits of Pitocin per minute. She has epidural and is comfortable. She has been at 78 centimeters dilated over the past hour. Review of Systems Date Seen by Provider: Sep 28, 2017 Time Seen by Provider: 17:25 Objective Exam Last Set of Vital Signs Vital Signs Date Time Temp Pulse Resp B/P (MAP) Pulse Ox O2 Delivery O2 Flow Rate FiO2 09/28/17 16:30 89 18 135/76 (95) 100 Room Air 09/28/17 13:52 96.7 Capillary Refill : I&O Intake and Output 09/28/17 00:00 Daily Weight Change No General: No Acute Distress Other physical findings Cervix: She is 78 centimeters with 50 percent cervical effacement. The 50 percent previously was 90 percent effaced. -2-3 station Results/Procedures Lab Laboratory Tests 09/27/17 20:20: White Blood Count 12.7H, Red Blood Count 3.38L, Hemoglobin 10.1L, Hematocrit 30L , Mean Corpuscular Volume 88, Mean Corpuscular Hemoglobin 30, Mean Corpuscular Hemoglobin Concent 34, Red Cell Distribution Width 14.6H, Platelet Count 301, Mean Platelet Volume 10.5H, Neutrophils (%) (Auto) 71, Lymphocytes (%) (Auto) 22 , Monocytes (%) (Auto) 6, Eosinophils (%) (Auto) 1, Basophils (%) (Auto) 0, Neutrophils # (Auto) 9.1H, Lymphocytes # (Auto) 2.7, Monocytes # (Auto) 0.8, Eosinophils # (Auto) 0.1, Basophils # (Auto) 0.0 Assessment/Plan Assessment/Plan Assessment & Plan 1. Intrauterine at 39 weeks 3 days gestation in labor -Continue labor since monitor reveals reactive strip. Clinical Quality Measures DVT/VTE Risk/Contraindication: Risk Factor Score Per Nursin RFS Level Per Nursing on Admit: 1=Low/No VTE PPX SCOTT CHAMPION MD Sep 28, 2017 17:37
[2017-09-28] MEDS ORDERED: LACTATED RINGERS 1,000 ML IV PRN (18:26)
[2017-09-28] MEDS ORDERED: raNItidine INJECTION 50 MG in NS (IVPB) 50 ML IV ONE (18:30)
[2017-09-28] MEDS ORDERED: METOCLOPRAMIDE INJ 10 MG/2 ML (REGLAN) IV ONE (18:30)
[2017-09-28] MEDS ORDERED: CITRIC ACID/SOB CIT (BICITRA) 30 ML UDC PO ONE (18:30)
--- NOTE | 2017-09-28 18:39 | Progress Note (SOAP) ---
Subjective Subjective/Events-last exam Patient comfortable. No change of cervix. Pitocin at 32 uU/min. Review of Systems Date Seen by Provider: Sep 28, 2017 Time Seen by Provider: 18:30 Objective Exam Last Set of Vital Signs Vital Signs Date Time Temp Pulse Resp B/P (MAP) Pulse Ox O2 Delivery O2 Flow Rate FiO2 09/28/17 18:00 96 20 130/83 (99) 100 Room Air 09/28/17 17:15 97.4 Capillary Refill : I&O Intake and Output 09/28/17 00:00 Daily Weight Change No General: No Acute Distress Other physical findings Cervix unchanged at 7cm. Cervix thick (from swelling as effacement had been 90- 100%). Results/Procedures Lab Laboratory Tests 09/27/17 20:20: White Blood Count 12.7H, Red Blood Count 3.38L, Hemoglobin 10.1L, Hematocrit 30L , Mean Corpuscular Volume 88, Mean Corpuscular Hemoglobin 30, Mean Corpuscular Hemoglobin Concent 34, Red Cell Distribution Width 14.6H, Platelet Count 301, Mean Platelet Volume 10.5H, Neutrophils (%) (Auto) 71, Lymphocytes (%) (Auto) 22 , Monocytes (%) (Auto) 6, Eosinophils (%) (Auto) 1, Basophils (%) (Auto) 0, Neutrophils # (Auto) 9.1H, Lymphocytes # (Auto) 2.7, Monocytes # (Auto) 0.8, Eosinophils # (Auto) 0.1, Basophils # (Auto) 0.0 Assessment/Plan Assessment/Plan Assessment & Plan 1. Intrauterine at 39 weeks 3 days gestation in labor -Continue labor since monitor reveals reactive strip. 1830 -Dr Cagle and surgery crew notified of FTP and CPD -patient and family in agreement for primary LTCS due to FTP Clinical Quality Measures DVT/VTE Risk/Contraindication: Risk Factor Score Per Nursin RFS Level Per Nursing on Admit: 1=Low/No VTE PPX SCOTT CHAMPION MD Sep 28, 2017 18:39
[2017-09-28] MEDS ORDERED: ceFAZolin 2 GM IV Premixed 50 ML IV ONE (19:00)
--- NOTE | 2017-09-28 19:06 | Progress Note-Standard ---
Standard Progress Note Progress Notes/Assess & Plan Date Seen by Provider: Sep 28, 2017 Time Seen by Provider: 18:58 Progress/Assessment & Plan Consultation from Dr. Armas for failure to progress to perform . OBHx: MedHx: BMI 37.5 SurgHX: none Allergies: none Diagnosis: Failure to progress P: PLTCS- Risk of procedure discussed with the patient with family present. All patients questions answered. ALEXSANDRA SANCHEZ DO Sep 28, 2017 7:06 pm
[2017-09-28] MEDS ORDERED: ONDANSETRON 4 MG/2 ML (SDV) Z0FRAN IVP PRN ×2 (19:15→20:15)
[2017-09-28] MEDS ORDERED: HYDROmorphone 1 MG/ML (DILAUDID) 1 ML SYRINGE IV PRN ×3 (19:15→20:15)
[2017-09-28] MEDS ORDERED: TETANUS,DIPTH,PERTUSS P/F (BOOSTRIX) 0.5 ML VIAL IM SCH (19:15)
[2017-09-28] MEDS ORDERED: MEASLES,MUMPS,RUBELLA 1 EA INJ SC SCH (19:15)
[2017-09-28] MEDS ORDERED: KETAMINE HCL 100 MG/ML 5 ML VIAL ONE (19:25)
[2017-09-28] MEDS ORDERED: BUPIVACAINE 0.5% 30 ML (SENSORCAINE) VIAL ONE (19:54)
[2017-09-28] MEDS ORDERED: LABETALOL HCL 20 MG/4 ML VIAL ONE (19:54)
--- NOTE | 2017-09-28 19:57 | Discharge Inst-Women's Service ---
Discharge Inst-Women's Serv Depart Medication/Instructions New, Converted or Re-Newed RX: RX on Chart Consults/Follow Up Additional Follow Up: Yes Orders/Referrals Dr. Cagle in 7-[address] Armas in 8 weeks Activity Activity: Activity as Tolerated Driving Instructions: No Driving for 1 Week NO SMOKING: NO SMOKING Nothing Inside Vagina: No Douching, No [place], No Tampons Diet Discharge Diet: No Restrictions Symptoms to Report to : Bleeding Excessive, Pain Increased, Fever Over 101 Degrees F, Vaginal Bleeding Increase, Questions/Concerns For Any Problems or Questions: Contact Your Physician Skin/Wound Care Infection Signs and Symptoms: Increased Redness, Foul Odor of Wound, Increased Drainage, Skin Itchy or Has a Rash, Increased Swelling, Temperature Above 101 F Operative Area Clean and Dry: Keep Incision Clean/Dry Stitches/[place]/Dermabond: Dermabond, Care of Stitches Bathing Instructions: ALEXSANDRA Pineda DO Sep 28, 2017 7:57 pm
[2017-09-28] MEDS ORDERED: ACHD5005 PO (19:58)
[2017-09-28] MEDS ORDERED: IBUP-844 PO (19:59)
[2017-09-28] MEDS ORDERED: DOCU100C37 PO (19:59)
[2017-09-28] MEDS ORDERED: fentaNYL INJECTION 100 MCG/2 ML AMP IVP PRN (20:15)
[2017-09-28] MEDS: DOCUSATE SODIUM 100 MG (COLACE) CAP PO SCH (21:00)
[2017-09-28] MEDS: KETOROLAC 30 MG/ML VIAL IVP SCH (21:17)
[2017-09-28] MEDS ORDERED: CATHETER FLUSH 10 ML SYR IV SCH (22:00)
--- NOTE | 2017-09-28 23:07 | OPERATIVE REPORT ---
DATE OF SERVICE: PREOPERATIVE DIAGNOSES: 1. A 22-year-old G1, P0 at 39 weeks and 2 days gestation. 2. Failure to progress. POSTOPERATIVE DIAGNOSES: 1. A 22-year-old G1, P0 at 39 weeks and 2 days gestation. 2. Failure to progress. PROCEDURE: Primary low transverse section. SURGEON: Charanjit Sanchez DO BLUE LINE TRIMMER: Dr. Rubio Armas. ANESTHESIA: Epidural, which was bolused. ESTIMATED BLOOD LOSS: 500 mL. URINE OUTPUT: 175 mL. FLUIDS: 600 mL of Lactated Ringer solution. FINDINGS: A live female weighing 7 pounds 8 ounces, Apgars of 8 and 9. Grossly normal appearing uterus, bilateral fallopian tubes and ovaries. INDICATION FOR PROCEDURE: I was contacted by Dr. Armas on this patient for failure to progress. She had not progressed from 7 cm and actually started to have cervical swelling. Her last evaluation prior to his contact was at 3 o'clock and then again at 6 o'clock, she was rechecked and found to have swelling of the cervix and made no cervical change. Due to failure to progress, I discussed with the patient the indication for . Risk of the procedure was discussed with her and her family present. After all of her questions were answered, consent was obtained, the patient was taken to the operating room. DESCRIPTION OF PROCEDURE: Once in the operating room, epidural analgesia was bolused and found to be adequate. She was placed in the supine position with a leftward tilt, prepped and draped in normal sterile fashion. A Pfannenstiel skin incision was made with a knife and carried down to the underlying fascia using Bovie cautery. The fascial incision was extended laterally using Bovie cautery. Superior aspect of the fascial incision was then grasped with Merary clamps, tented up and dissected off the underlying rectus muscles. The inferior aspect of the fascial incision was then grasped with Merary clamps, tented up and dissected off the underlying rectus muscles. The rectus muscles were then dissected down the midline using Thompson scissor which was closed with the peritoneum which was entered bluntly and extended using blunt traction. An Viet ring retractor was placed in the peritoneal incision, which offers excellent lateral sidewall retraction. I then identified the lower uterine segment, which was found to be thinned out and make a low transverse incision into the vesicouterine peritoneum with a knife and bluntly dissected the vesicouterine peritoneum off the lower uterine segment. I then proceeded with my myotomy until membranes were visualized and rupture occurs on extension of the uterine incision laterally and superiorly using bandage scissors. The infant was found in the vertex presentation. With gentle fundal pressure, the infant's head was elevated up to the incision where it is delivered to the incision. Nares and oropharynx were bulb suctioned. Anterior and posterior shoulders were delivered. Infant was then brought to the operative field where cord was doubly clamped and cut. Infant was handed off to Dr. Armas who was present for attendance. Cord blood was collected, 3-vessel cord with intact placenta was delivered spontaneously thereafter. IV Pitocin was initiated to facilitate uterine contraction. Uterine fundus became firmer with bimanual massage. Uterus was then exteriorized and cleared off all endometrial clots and debris. The uterus was then closed using 0 Vicryl suture in running locked fashion. A second layer of imbricating 0 Monocryl was placed. Excellent hemostasis was noted after doing this. I then placed the uterus back in the pelvis and copiously irrigated the pelvis using normal saline. Once again, there was no active bleeding noted from any of my dissection planes. I placed Interceed antiadhesive on my low transverse incision and proceeded with closing the peritoneum using 3-0 Vicryl suture in running fashion. The rectus muscle was reapproximated using 3-0 Vicryl suture in interrupted fashion. The fascia was reapproximated with 0 Vicryl suture in running fashion. Subcutaneous tissue was reapproximated using 3-0 plain in interrupted subcutaneous stitch and skin reapproximated using 4-0 Monocryl in a running subcuticular. Dermabond was applied to incision. A sterile dressing was adhesed with white tape. The patient tolerated the procedure well and was taken to recovery area in stable condition. Lap and sponge counts were correct at the end of procedure. Instrument counts were correct as well. Two grams of Ancef given preoperatively for infection prophylaxis. Job ID: [id number] DocumentID: [id number] Dictated Date: 09/28/2017 19:56:32 Poll Watcher Date: 09/28/2017 23:06:42 Dictated By: CHARANJIT SANCHEZ DO
[2017-09-28] MEDS: HYDROcodone/APAP 5 MG/325 MG (LORTAB) TAB PO PRN (23:20)
[2017-09-29] MEDS: HYDROcodone/APAP 5 MG/325 MG (LORTAB) TAB PO PRN ×3 (03:17→14:58)
[2017-09-29 03:30] VITALS: BP 141/88
[2017-09-29 06:44] LABS: BASOPHILS % (AUTO) 0 % (0-10); EOSINOPHILS # (AUTO) 0.1 10^3/uL (0.0-0.3); EOSINOPHILS % (AUTO) 1 % (0-10); HEMATOCRIT 26 % (35-52); LYMPHOCYTES % (AUTO) 16 % (12-44); MEAN CORPUSCULAR HEMOGLOBIN 30 PG (25-34); MEAN CORPUSCULAR HGB CONC 34 G/DL (32-36); MEAN CORPUSCULAR VOLUME 88 FL (80-99); MONOCYTES # (AUTO) 1.3 X 10^3 (0.0-1.0); MONOCYTES % (AUTO) 10 % (0-12); NEUTROPHILS # (AUTO) 9.3 X 10^3 (1.8-7.8); NEUTROPHILS % (AUTO) 73 % (42-75); PLATELET COUNT 255 10^3/uL (130-400); RED BLOOD COUNT 2.98 10^6/uL (4.35-5.85); RED CELL DISTRIBUTION WIDTH 14.4 % (10.0-14.5); WHITE BLOOD COUNT 12.8 10^3/uL (4.3-11.0)
[2017-09-29 08:00] VITALS: BP 146/90
[2017-09-29] MEDS: DOCUSATE SODIUM 100 MG (COLACE) CAP PO SCH (08:09)
[2017-09-29] MEDS: KETOROLAC 30 MG/ML VIAL IVP SCH (08:16)
--- NOTE | 2017-09-29 09:14 | Anesthesia-Regional Post-Op ---
Regional Patient Condition Mental Status: Alert, Oriented x3 Circulation: Same as Pre-Op Headache: Absent Sensation: Full Recovery Motor Block: Absent Post Op Complications Complications None Follow Up Care/Instructions Patient Instructions None needed. Anesthesia/Patient Condition Patient is doing well, no complaints, stable vital signs, no apparent adverse anesthesia problems. No complications reported per nursing. JASMINE ESCOBEDO CRNA Sep 29, 2017 09:13
--- NOTE | 2017-09-29 09:54 | Postpartum Progress Note ---
Note Note Day # 1 Subjective: Patient is without complaints. Ambulating, voiding. Tolerating a regular diet without nausea or vomiting. Normal lochia. Pain is well controlled with oral pain medications. Objective: Vital Sign - Last 24 Hours 09/28/17 09/28/17 09/28/17 09/28/17 09:55 10:00 10:15 10:30 Pulse 70 67 65 74 Resp 18 18 18 18 B/P (MAP) 127/69 (88) 141/92 (108) 135/75 (95) 131/73 (92) Pulse Ox 99 100 98 100 O2 Delivery Room Air Room Air Room Air Room Air 09/28/17 09/28/17 09/28/17 09/28/17 10:45 11:00 11:15 11:30 Pulse 67 70 71 64 Resp 18 18 18 18 B/P (MAP) 131/84 (100) 129/75 (93) 123/70 (87) 125/66 (85) Pulse Ox 100 98 100 99 O2 Delivery Room Air Room Air Room Air Room Air 09/28/17 09/28/17 09/28/17 09/28/17 11:45 12:00 12:15 12:30 Pulse 64 73 69 76 Resp 18 18 18 18 B/P (MAP) 120/67 (84) 128/68 (88) 130/72 (91) 131/72 (91) Pulse Ox 98 99 99 99 O2 Delivery Room Air Room Air Room Air Room Air 09/28/17 09/28/17 09/28/17 09/28/17 12:45 13:00 13:15 13:30 Pulse 66 66 67 72 Resp 18 18 18 18 B/P (MAP) 122/70 (87) 122/70 (87) 122/70 (87) 133/66 (88) Pulse Ox 99 99 98 100 O2 Delivery Room Air Room Air Room Air Room Air 09/28/17 09/28/17 09/28/17 09/28/17 13:45 13:52 14:00 14:15 Temp 96.7 Pulse 71 65 73 Resp 18 18 18 B/P (MAP) 125/77 (93) 120/67 (84) 129/74 (92) Pulse Ox 100 100 100 O2 Delivery Room Air Room Air Room Air 09/28/17 09/28/17 09/28/17 09/28/17 14:30 14:45 15:00 15:15 Pulse 74 87 81 75 Resp 18 18 18 18 B/P (MAP) 125/72 (89) 139/86 (103) 124/78 (93) 138/77 (97) Pulse Ox 100 100 100 100 O2 Delivery Room Air Room Air Room Air Room Air 09/28/17 09/28/17 09/28/17 09/28/17 15:30 15:45 16:00 16:15 Pulse 89 93 91 83 Resp 18 18 18 18 B/P (MAP) 135/86 (102) 128/92 (104) 130/80 (97) 131/73 (92) Pulse Ox 100 100 99 98 O2 Delivery Room Air Room Air Room Air Room Air 09/28/17 09/28/17 09/28/17 09/28/17 16:30 16:45 17:00 17:15 Temp 97.4 Pulse 89 91 81 76 Resp 18 18 18 18 B/P (MAP) 135/76 (95) 127/58 (81) 138/85 (102) 140/73 (95) Pulse Ox 100 100 99 99 O2 Delivery Room Air Room Air Room Air Room Air 09/28/17 09/28/17 09/28/17 09/28/17 17:30 17:45 18:00 18:15 Pulse 84 84 96 86 Resp 18 20 20 18 B/P (MAP) 119/64 (82) 127/58 (81) 130/83 (99) 154/79 (104) Pulse Ox 100 100 100 100 O2 Delivery Room Air Room Air Room Air Room Air 09/28/17 09/28/17 09/28/17 09/28/17 18:30 18:45 19:00 22:00 Temp 97.6 Pulse 88 92 81 98 Resp 18 18 18 20 B/P (MAP) 152/90 (110) 141/95 (110) 144/92 (109) 148/91 (110) Pulse Ox 99 98 O2 Delivery Room Air Room Air Room Air Room Air 09/28/17 09/28/17 09/29/17 09/29/17 22:03 23:55 03:30 08:00 Temp 99.0 98.8 98.1 Pulse 88 85 87 Resp 18 18 20 B/P (MAP) 135/71 (92) 141/88 (105) 146/90 (108) Pulse Ox 99 98 97 O2 Delivery Room Air Room Air Room Air Room Air Intake and Output 09/28/17 09/28/17 09/29/17 15:00 23:00 07:00 Intake Total 50 ml 1800 ml Output Total 875 ml 1700 ml Balance -825 ml 100 ml Physical Exam: General - Alert and oriented, no apparent distress Abdomen - Soft, appropriately tender to palpation, non-distended, fundus firm at umbilicus Extremities - no edema, negative Edwin's bilaterally Incision- c/d/i Assessment: POD 1 PLTCS Acute blood loss anemia Plan: Routine care. Encourage breast feeding. Encourage ambulation. Ferrous sulfate supplementation. Plan for discharge [] Vitals - Labs Vital Signs - I&O Vital Signs Date Time Temp Pulse Resp B/P (MAP) Pulse Ox O2 Delivery O2 Flow Rate FiO2 09/29/17 08:00 98.1 87 20 146/90 (108) 97 Room Air 09/29/17 03:30 98.8 85 18 141/88 (105) 98 Room Air 09/28/17 23:55 99.0 88 18 135/71 (92) 99 Room Air 09/28/17 22:03 Room Air 09/28/17 22:00 97.6 98 20 148/91 (110) 98 Room Air 09/28/17 19:00 81 18 144/92 (109) Room Air 09/28/17 18:45 92 18 141/95 (110) Room Air 09/28/17 18:30 88 18 152/90 (110) 99 Room Air 09/28/17 18:15 86 18 154/79 (104) 100 Room Air 09/28/17 18:00 96 20 130/83 (99) 100 Room Air 09/28/17 17:45 84 20 127/58 (81) 100 Room Air 09/28/17 17:30 84 18 119/64 (82) 100 Room Air 09/28/17 17:15 97.4 76 18 140/73 (95) 99 Room Air 09/28/17 17:00 81 18 138/85 (102) 99 Room Air 09/28/17 16:45 91 18 127/58 (81) 100 Room Air 09/28/17 16:30 89 18 135/76 (95) 100 Room Air 09/28/17 16:15 83 18 131/73 (92) 98 Room Air 8918 16:00 91 18 130/80 (97) 99 Room Air 818 15:45 93 18 128/92 (104) 100 Room Air 818 15:30 89 18 135/86 (102) 100 Room Air 818 15:15 75 18 138/77 (97) 100 Room Air 818 15:00 81 18 124/78 (93) 100 Room Air 818 14:45 87 18 139/86 (103) 100 Room Air 818 14:30 74 18 125/72 (89) 100 Room Air 818 14:15 73 18 129/74 (92) 100 Room Air 8 14:00 65 18 120/67 (84) 100 Room Air 09/28/17 13:52 96.7 818 13:45 71 18 125/77 (93) 100 Room Air 09/28/17 13:30 72 18 133/66 (88) 100 Room Air 09/28/17 13:15 67 18 122/70 (87) 98 Room Air 818 13:00 66 18 122/70 (87) 99 Room Air 818 12:45 66 18 122/70 (87) 99 Room Air 818 12:30 76 18 131/72 (91) 99 Room Air 818 12:15 69 18 130/72 (91) 99 Room Air 818 12:00 73 18 128/68 (88) 99 Room Air 818 11:45 64 18 120/67 (84) 98 Room Air 818 11:30 64 18 125/66 (85) 99 Room Air 818 11:15 71 18 123/70 (87) 100 Room Air 818 11:00 70 18 129/75 (93) 98 Room Air 818 10:45 67 18 131/84 (100) 100 Room Air 818 10:30 74 18 131/73 (92) 100 Room Air 818 10:15 65 18 135/75 (95) 98 Room Air 8918 10:00 67 18 141/92 (108) 100 Room Air 818 09:55 70 18 127/69 (88) 99 Room Air I & O 09/29/17 07:00 Intake Total 1850 ml Output Total 2575 ml Balance -725 ml Labs Laboratory Tests 09/29/17 06:18: White Blood Count 12.8H, Red Blood Count 2.98L, Hemoglobin 9.0L, Hematocrit 26L , Mean Corpuscular Volume 88, Mean Corpuscular Hemoglobin 30, Mean Corpuscular Hemoglobin Concent 34, Red Cell Distribution Width 14.4, Platelet Count 255, Mean Platelet Volume 11.0H, Neutrophils (%) (Auto) 73, Lymphocytes (%) (Auto) 16 , Monocytes (%) (Auto) 10, Eosinophils (%) (Auto) 1, Basophils (%) (Auto) 0, Neutrophils # (Auto) 9.3H, Lymphocytes # (Auto) 2.0, Monocytes # (Auto) 1.3H, Eosinophils # (Auto) 0.1, Basophils # (Auto) 0.0 ALEXSANDRA SANCHEZ DO Sep 29, 2017 9:54 am
[2017-09-29] MEDS ORDERED: FERR-84 PO (09:56)
[2017-09-29 12:00] VITALS: BP 145/97
[2017-09-29] MEDS ORDERED: IBUPROFEN 600 MG (MOTRIN) TAB PO ONE (14:21)
[2017-09-29 16:30] VITALS: BP 133/83
[2017-09-29 18:05] VITALS: BP 133/83
[2017-09-29] MEDS ORDERED: IBUPROFEN 600 MG (MOTRIN) TAB PO SCH (19:15)
== END 2017-09-29 18:05 | disposition home or self-care (01) | DRG 765 ==
LOC: LDRP 19:00 → 3RD 09-28 13:22 → LDRP 09-28 13:22
PROVIDERS: ADMIT Family Medicine; ATTEND Family Medicine
PROC: 3E0P7GC Introduction of Other Therapeutic Substance into Female Reproductive, Via Natural or Artificial Opening (ICD-10-PCS; 2017-09-27)
PROC: 10D00Z1 Extraction of Products of Conception, Low, Open Approach (ICD-10-PCS; principal; 2017-09-28 19:06)
DX: O99.824 Streptococcus B carrier state complicating childbirth (principal); R03.0 Elevated blood-pressure reading, without diagnosis of hypertension; O66.9 Obstructed labor, unspecified; O90.81 Anemia of the puerperium; D62 Acute posthemorrhagic anemia; Z3A.39 39 weeks gestation of pregnancy; Z37.0 Single live birth
CPT/HCPCS: 36415; 85025; 86850; 86900; 86901; 94664

== ENCOUNTER 2018-12-02 10:35 | Emergency (ER) | payer MEDICAID ==
[~2018-12-02] VITALS: Ht 175 cm; Wt 113.6 kg
[~2018-12-02 10:35] MED LIST changes: +ACHD5005 PO; +DOCU100C37 PO; +IBUP-844 PO; +METF-397 PO; -METF500T5 PO
--- NOTE | 2018-12-02 11:42 | ED EENT ---
History of Present Illness General Chief Complaint: Dental Problems/Pain Stated Complaint: R SIDE FACIAL SWELLING/DENTAL PAIN Nursing Triage Note: PT PRESENTS TO ED WITH COMPLAINTS OF R FACIAL SWELLING AND R UPPER DENTAL PAIN X 2 DAYS. PT REPORTS HER DENTAL ISSUES HAVE BEEN CHRONIC BUT WORSE RECENTLY. PT HAS APPOINTMENT WITH [facility]ENT[facility] MONDAY. Source: patient Exam Limitations: no limitations History of Present Illness Date Seen by Provider: Dec 02, 2018 Time Seen by Provider: 11:42 Initial Comments 23-year-old female patient presents with complaints of right facial swelling and right upper dental pain 2 days. Patient reports dental issues have been chronic, but worse recently. Patient is scheduled to see [facility] on Monday for dental repair or extraction. Denies fever or chills. Patient's blood pressure is noted to be slightly elevated. Patient states she has been diagnosed with hypertension and states 150s/100 is "normal" for her. Patient states she was on lisinopril, but states she does have an allergy to this. She is supposed to follow up with her primary care provider in the next couple weeks to discuss trying a new blood pressure medication. Timing/Duration: gradual, other (today onset) Location: facial, dental Prearrival Treatment: over the counter meds Modifying Factors: Worse With Other (worse with chewing and palpation) Allergies and Home Medications Allergies Coded Allergies: hydrocodone (Verified Allergy, Unknown, 12/02/18) strawberry (Verified Allergy, Unknown, 08/18/17) Home Medications Cephalexin 500 Mg Tablet, 500 MG PO QID Prescribed by: DOMINICK MOLINA on 12/02/18 1212 Docusate Sodium 100 Mg Capsule, 100 MG PO BID PRN for CONSTIPATION-1ST LINE Prescribed by: ALEXSANDRA SANCHEZ on 09/28/171958 Ferrous Sulfate 325 Mg Tablet, 325 MG PO BID Prescribed by: ALEXSANDRA SANCHEZ on 09/29/17 0956 Hydrocodone Bit/Acetaminophen 1 Tab Tab, 1-2 TAB PO Q4H PRN for PAIN-MODERATE Prescribed by: ALEXSANDRA SANCHEZ on 09/28/171957 Ibuprofen 600 Mg Tablet, 600 MG PO Q6H Prescribed by: ALEXSANDRA SANCHEZ on 09/28/171958 Ondansetron 4 Mg Tab.rapdis, 4 MG PO Q6H PRN for NAUSEA/VOMITING Prescribed by: DOMINICK MOLINA on 12/02/18 1212 Tramadol HCl 50 Mg Tablet, 50 MG PO Q6H PRN for PAIN Prescribed by: DOMINICK MOLINA on 12/02/18 1212 Patient Home Medication List Home Medication List Reviewed: Yes Review of Systems Review of Systems Constitutional: No chills, No dizziness, No fever, No malaise Eyes: No Symptoms Reported Ears: No Symptoms Reported Nose: no symptoms reported Mouth: see HPI, pain, swelling Throat: no symptoms reported Respiratory: no symptoms reported Cardiovascular: no symptoms reported Gastrointestinal: No abdominal pain, No constipation, No diarrhea, No dysphagia, No loss of appetite, No nausea (denies current nausea, but does report nausea yesterday) Musculoskeletal: no symptoms reported Skin: no symptoms reported Neurological: No Symptoms Reported All Other Systems Reviewed Negative Unless Noted: Yes (Negative excepted noted.) Past Pctsyvs-Gztyud-Chqosq Hx Past Med/Social Hx: Reviewed Nursing Past Med/Soc Hx Patient Social History Alcohol Use: Denies Use Recreational Drug Use: No Smoking Status: Current Everyday Smoker Type Used: Cigarettes Recent Foreign Travel: No Contact w/Someone Who Travel: No Recent Infectious Disease Expo: No Recent Hopitalizations: Yes Physical Abuse: No Sexual Abuse: No Mistreated: No Fear: No Seasonal Allergies Seasonal Allergies: No Past Medical History Surgeries: Yes (kidney stones, RENAL stint) Renal, Tonsillectomy Respiratory: No Cardiac: No Hypertension Neurological: No Reproductive Disorders: No Female Reproductive Disorders: Denies Sexually Transmitted Disease: No HIV/AIDS: No Genitourinary: Yes Kidney Stones Gastrointestinal: No Musculoskeletal: No Endocrine: Yes HEENT: No Cancer: No Psychosocial: No Integumentary: No Blood Disorders: No Family Medical History Reviewed Nursing Family Hx Autism G8 BROTHER Diabetes mellitus 19 FATHER FH: throat cancer 19 FATHER Hypertension 19 FATHER 19 MOTHER G8 BROTHER No Pertinent Family Hx Physical Exam Vital Signs Vital Signs - First Documented 12/02/18 10:43 Temp 36.2 Pulse 107 Resp 16 B/P (MAP) 150/112 (125) Pulse Ox 99 Height, Weight, BMI Height: 5'9.00" Weight: 254lbs. 2.0oz. [id number]; 37.00 BMI Method:Stated General Appearance: WD/WN, no apparent distress Eyes: bilateral eye normal inspection, bilateral eye PERRL, bilateral eye EOMI Ears: bilateral ear auricle normal, bilateral ear canal normal, bilateral ear TM normal Nose: normal inspection Mouth/Throat: pharynx normal, dental tenderness (right upper dental pain and tenderness); No excessive drooling, No mandibular swelling; maxillary swelling ( right maxillary swelling without erythema or warmth.); No pharynx swelling, No pharynx tenderness, No trismus, No uvula swelling, No voice changes; other (dental jairo to the right upper molar with mild erythema and swelling to the gums.) Neck: non-tender, full range of motion, supple, lymphadenopathy (R); No lymphadenopathy (L) Cardiovascular: normal peripheral pulses, no edema, no gallop, no murmur, tachycardia Respiratory: lungs clear, normal breath sounds, no respiratory distress, no accessory muscle use Gastrointestinal: normal bowel sounds, non tender, soft, no organomegaly Neurologic/Psychiatric: alert, normal mood/affect, oriented x 3 Skin: normal color, warm/dry Progress/Results/Core Measures Results/Orders My Orders Orders - DOMINICK MOLINA Hydrocodone/Apap 5/325 Tablet (Lortab 5 (12/02/18 12:15) Ibuprofen Tablet (Motrin Tablet) (12/02/18 12:02) Ceftriaxone For Im Use (Rocephin For Im (12/02/18 12:15) Lidocaine 1% Inj 20 Ml (Xylocaine 1% Inj (12/02/18 12:15) Tramadol Tablet (Ultram Tablet) (12/02/18 12:15) Medications Given in ED Current Medications Medications Dose Ordered Sig/Key Route Start Time Stop Time Status Last Admin Dose Admin Ceftriaxone Sodium 1,000 mg ONCE ONCE IM 12/02/18 12:15 12/02/18 12:16 DC 12/02/18 12:20 1,000 MG Lidocaine HCl 2.1 ml ONCE ONCE INJ 12/02/18 12:15 12/02/18 12:16 DC 12/02/18 12:20 2.1 ML Tramadol HCl 50 mg ONCE ONCE PO 12/02/18 12:15 12/02/18 12:16 DC 12/02/18 12:20 50 MG Vital Signs/I&O 12/02/18 10:43 Temp 36.2 Pulse 107 Resp 16 B/P (MAP) 150/112 (125) Pulse Ox 99 Blood Pressure Mean: 125 Departure Communication (Admissions) Patient seen and evaluated. Given Rocephin 1 g IM 1 dose, ibuprofen 800 mg by mouth, and tramadol 50 mg by mouth 1 dose in the emergency department. Plan for discharge to home. Impression Primary Impression: Infected dental caries Additional Impression: Hypertension Qualified Codes: I10 - Essential (primary) hypertension Disposition: HOME, SELF-CARE Condition: Improved Departure-Patient Inst. Decision time for Depature: 12:10 Referrals: HERMILO MENSAH MD (PCP/Family) Primary Care Physician Patient Instructions: High Blood Pressure (DC), Dental Pain (DC) Add. Discharge Instructions: All discharge instructions reviewed with patient and/or family. Voiced understanding. Medications as instructed. Ibuprofen 800 mg by mouth every 8 hours as needed for pain. Tylenol Extra Strength [id number]-ibr-[id number] as directed for pain. Drink plenty of fluids. You may use an ice pack or heating pad as needed. Follow-up with the dentist on Monday as scheduled. Follow-up with your family practitioner for recheck as an outpatient as scheduled for discussion of elevated blood pressure. Return to the emergency department for worsened symptoms, fever, difficulty swallowing, difficulty breathing, dizziness, or any other concerns. Scripts Ondansetron (Ondansetron Odt) 4 Mg Tab.rapdis 4 MG PO Q6H PRN for NAUSEA/VOMITING, #10 TAB 0 Refills Prov: DOMINICK MOLINA 12/02/18 Cephalexin (Cephalexin) 500 Mg Tablet 500 MG PO QID, #20 TAB 0 Refills Prov: DOMINICK MOLINA 12/02/18 Tramadol HCl (Tramadol HCl) 50 Mg Tablet 50 MG PO Q6H PRN for PAIN, #14 TAB 0 Refills Prov: DOMINICK MOLINA 12/02/18 DOMINICK MOLINA Dec 02, 2018 11:42
[2018-12-02] MEDS ORDERED: IBUPROFEN 800 MG (MOTRIN) TAB PO STA (12:02)
[2018-12-02] MEDS ORDERED: TRAM50TA2 PO (12:12)
[2018-12-02] MEDS ORDERED: ONDA4TAB11 PO (12:12)
[2018-12-02] MEDS ORDERED: CEPH500T PO (12:12)
[2018-12-02] MEDS ORDERED: HYDROcodone/APAP 5 MG/325 MG (LORTAB) TAB PO ONE (12:15)
[2018-12-02] MEDS ORDERED: cefTRIAXone 1,000 MG/2.86 ml vial (IM ONLY) IM ONE (12:15)
[2018-12-02] MEDS ORDERED: LIDOCAINE 1% INJ 20 ML 20 ML VIAL INJ ONE (12:15)
[2018-12-02 12:43] VITALS: BP 145/92
== END 2018-12-02 12:43 | disposition home or self-care (01) ==
LOC: EDUNIT# 10:35 → ER 10:36
DX: K02.9 Dental caries, unspecified (principal); I10 Essential (primary) hypertension; F17.210 Nicotine dependence, cigarettes, uncomplicated; Z90.89 Acquired absence of other organs; Z87.442 Personal history of urinary calculi; Z88.5 Allergy status to narcotic agent; Z80.8 Family history of malignant neoplasm of other organs or systems; Z82.49 Family history of ischemic heart disease and other diseases of the circulatory system
CPT/HCPCS: 99284

== ENCOUNTER 2019-01-26 14:28 | Emergency (ER) | payer MEDICAID ==
[~2019-01-26] VITALS: Ht 177 cm; Wt 113.6 kg
[~2019-01-26 14:28] MED LIST changes: +CEPH500T PO; +ONDA4TAB11 PO; +TRM50T PO
--- NOTE | 2019-01-26 14:51 | ED Abdominal Pain ---
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 PT STATES SHE IS PREGNENT ET UNKNOWN GESTATION. 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 Sepsis Screen: No Definite Risk Source of Information: Patient Exam Limitations: No Limitations History of Present Illness Date Seen by Provider: Jan 26, 2019 Time Seen by Provider: 14:48 Initial Comments To ER with c/o sharp rlq abdominal pain x15 minutes.States this is her second , just found out yesterday. not sure how far along she is. Scheduled to see Dr Moy on 02/04/19. No vaginal bleeding. Pain has lessened in intensity as of now. Timing/Duration: 1/2 Hour Severity/Quality: Moderate Radiation: No Radiation Activities at Onset: None Allergies and Home Medications Allergies Coded Allergies: hydrocodone (Verified Allergy, Unknown, 12/02/18) strawberry (Verified Allergy, Unknown, 08/18/17) Home Medications Cephalexin 500 Mg Tablet, 500 MG PO QID Prescribed by: DOMINICK MOLINA on 12/02/18 1212 Cephalexin 500 Mg Capsule, 500 MG PO TID Prescribed by: PRADEEP MARTIN on 01/26/19 1524 Docusate Sodium 100 Mg Capsule, 100 MG PO BID PRN for CONSTIPATION-1ST LINE Prescribed by: ALEXSANDRA SANCHEZ on 09/28/171958 Ferrous Sulfate 325 Mg Tablet, 325 MG PO BID Prescribed by: ALEXSANDRA SANCHEZ on 09/29/17 0956 Hydrocodone Bit/Acetaminophen 1 Tab Tab, 1-2 TAB PO Q4H PRN for PAIN-MODERATE Prescribed by: ALEXSANDRA SANCHEZ on 09/28/171957 Ibuprofen 600 Mg Tablet, 600 MG PO Q6H Prescribed by: ALEXSANDRA SANCHEZ on 09/28/171958 Ondansetron 4 Mg Tab.rapdis, 4 MG PO Q6H PRN for NAUSEA/VOMITING Prescribed by: DOMINICK MOLINA on 12/02/18 1212 Pnv No.118/Iron Fumarate/FA 1 Each Tab.chew, 1 EACH PO DAILY Prescribed by: PRADEEP MARTIN on 01/26/19 1524 Tramadol HCl 50 Mg Tablet, 50 MG PO Q6H PRN for PAIN Prescribed by: DOMINICK MOLINA on 12/02/18 1212 Patient Home Medication List Home Medication List Reviewed: Yes Review of Systems Review of Systems Constitutional: see HPI EENTM: No Symptoms Reported Respiratory: No Symptoms Reported Cardiovascular: No Symptoms Reported Gastrointestinal: No Symptoms Reported Genitourinary: No Symptoms Reported Musculoskeletal: no symptoms reported Skin: no symptoms reported Psychiatric/Neurological: No Symptoms Reported Endocrine: No Symptoms Reported Hematologic/Lymphatic: No Symptoms Reported Past Knztxjt-Vtzkaz-Ppxblw Hx Patient Social History Alcohol Use: Denies Use Recreational Drug Use: No Smoking Status: Current Everyday Smoker Type Used: Cigarettes Recent Foreign Travel: No Contact w/Someone Who Travel: No Recent Infectious Disease Expo: No Recent Hopitalizations: Yes Physical Abuse: No Sexual Abuse: No Mistreated: No Fear: No Seasonal Allergies Seasonal Allergies: No Past Medical History Surgeries: Yes (kidney stones, RENAL stint) Renal, Tonsillectomy Respiratory: No Cardiac: No Hypertension Neurological: No : Yes Last Menstrual Period: Dec 15, 2018 Reproductive Disorders: No Female Reproductive Disorders: Denies Sexually Transmitted Disease: No HIV/AIDS: No Genitourinary: Yes Kidney Stones Gastrointestinal: No Musculoskeletal: No Endocrine: Yes HEENT: No Cancer: No Psychosocial: No Integumentary: No Blood Disorders: No Family Medical History Autism G8 BROTHER Diabetes mellitus 19 FATHER FH: throat cancer 19 FATHER Hypertension 19 FATHER 19 MOTHER G8 BROTHER No Pertinent Family Hx Physical Exam Vital Signs Vital Signs - First Documented 01/26/19 01/26/19 14:28 16:01 Temp 36.8 Pulse 99 Resp 16 B/P (MAP) 145/102 (116) Pulse Ox 98 O2 Delivery Room Air Capillary Refill : Less Than 3 Seconds Height/Weight/BMI Height: 5'9.00" Weight: 254lbs. 2.0oz. 115.854035av; 36.00 BMI Method:Stated General Appearance: WD/WN, no apparent distress HEENT: PERRL/EOMI, normal ENT inspection Respiratory: no respiratory distress, no accessory muscle use Gastrointestinal: normal bowel sounds, non tender, soft Extremities: normal range of motion, non-tender Neurologic/Psychiatric: alert, normal mood/affect, oriented x 3 Skin: normal color, warm/dry Progress/Results/Core Measures Results/Orders Lab Results Laboratory Tests Test 01/26/19 14:38 01/26/19 14:55 Range/Units Urine Color YELLOW Urine Clarity SL CLOUDY Urine pH 7.5 5-9 Urine Specific [place] 1.020 1.016-1.022 Urine Protein NEGATIVE NEGATIVE Urine Glucose (UA) NEGATIVE NEGATIVE Urine Ketones NEGATIVE NEGATIVE Urine Nitrite NEGATIVE NEGATIVE Urine Bilirubin NEGATIVE NEGATIVE Urine Urobilinogen 0.2 < = 1.0 MG/DL Urine Leukocyte Esterase TRACE NEGATIVE Urine RBC (Auto) NEGATIVE NEGATIVE Urine RBC NONE /HPF Urine WBC 5-10 H /HPF Urine Crystals NONE /LPF Urine Bacteria MODERATE H /HPF Urine Casts NONE /LPF Urine Mucus NEGATIVE /LPF Urine Culture Indicated YES White Blood Count 13.5 H 4.3-11.0 10^3/uL Red Blood Count 4.55 4.35-5.85 10^6/uL Hemoglobin 13.5 11.5-16.0 G/DL Hematocrit 40 35-52 % Mean Corpuscular Volume 88 80-99 FL Mean Corpuscular Hemoglobin 30 25-34 PG Mean Corpuscular Hemoglobin Concent 34 32-36 G/DL Red Cell Distribution Width 13.0 10.0-14.5 % Platelet Count 242 130-400 10^3/uL Mean Platelet Volume 10.8 H 7.4-10.4 FL Neutrophils (%) (Auto) 78 H 42-75 % Lymphocytes (%) (Auto) 16 12-44 % Monocytes (%) (Auto) 6 0-12 % Eosinophils (%) (Auto) 0 0-10 % Basophils (%) (Auto) 0 0-10 % Neutrophils # (Auto) 10.5 H 1.8-7.8 X 10^3 Lymphocytes # (Auto) 2.1 1.0-4.0 X 10^3 Monocytes # (Auto) 0.8 0.0-1.0 X 10^3 Eosinophils # (Auto) 0.0 0.0-0.3 10^3/uL Basophils # (Auto) 0.0 0.0-0.1 10^3/uL Sodium Level 138 135-145 MMOL/L Potassium Level 3.9 3.6-5.0 MMOL/L Chloride Level 105 98-107 MMOL/L Carbon Dioxide Level 23 21-32 MMOL/L Anion Gap 10 5-14 MMOL/L Blood Urea Nitrogen 13 7-18 MG/DL Creatinine 0.81 0.60-1.30 MG/DL Estimat Glomerular Filtration Rate > 60 BUN/Creatinine Ratio 16 Glucose Level 128 H 70-105 MG/DL Calcium Level 10.2 H 8.5-10.1 MG/DL Corrected Calcium 10.1 8.5-10.1 MG/DL Total Bilirubin 0.3 0.1-1.0 MG/DL Aspartate Amino Transf (AST/SGOT) 10 5-34 U/L Alanine Aminotransferase (ALT/SGPT) 13 0-55 U/L Alkaline Phosphatase 66 40-136 U/L Total Protein 6.8 6.4-8.2 GM/DL Albumin 4.1 3.2-4.5 GM/DL Human Chorionic Gonadotropin, Quant 91786 H <5 MIU/ML My Orders Orders - PRADEEP MARTIN APRN Cbc With Automated Diff (01/26/19 14:35) Comprehensive Metabolic Panel (01/26/19 14:35) Ua Culture If Indicated (01/26/19 14:35) Hcg,Quantitative (01/26/19 14:35) Ed Iv/Invasive Line Start (01/26/19 14:35) Urine Culture (01/26/19 14:38) Vital Signs/I&O 01/26/19 01/26/19 14:28 16:01 Temp 36.8 36.8 Pulse 99 99 Resp 16 16 B/P (MAP) 145/102 (116) 135/88 (116) Pulse Ox 98 98 O2 Delivery Room Air Blood Pressure Mean: 116 POS Departure Communication (Admissions) Official US unavailable today, on bedside us I am able to see positive movement with cardiac activity with HR 165. 1545-her rlq pain is completely resolved despite no pain medications here. Impression Primary Impression: Urinary tract infection Qualified Codes: N30.00 - Acute cystitis without hematuria Additional Impression: Early abdominal pain Disposition: HOME, SELF-CARE Condition: Stable Departure-Patient Inst. Decision time for Depature: 15:22 Referrals: HERMILO MENSAH MD (PCP/Family) Primary Care Physician Patient Instructions: Urinary Tract Infection, Adult (DC) Add. Discharge Instructions: 1. return to er for any concerns 2. Follow up with your doctor on the as scheduled. Return to ER for any concerns All discharge instructions reviewed with patient and/or family. Voiced understanding. Scripts Pnv No.118/Iron Fumarate/FA ( 19 Chewable Tablet) 1 Each Tab.chew 1 EACH PO DAILY, #60 TAB Prov: PRADEEP MARTIN APRN 01/26/19 Cephalexin (Keflex) 500 Mg Capsule 500 MG PO TID, #14 CAP Prov: PRADEEP MARTIN APRN 01/26/19 PRADEEP MARTIN APRN Jan 26, 2019 14:51 POS
[2019-01-26 15:02] LABS: BILIRUBIN,URINE NEGATIVE (NEGATIVE); CLARITY,URINE SL CLOUDY; COLOR,URINE YELLOW; GLUCOSE, URINE (UA) NEGATIVE (NEGATIVE); KETONES,URINE NEGATIVE (NEGATIVE); LEUKOCYTE ESTERASE ,URINE TRACE (NEGATIVE); NITRITE,URINE NEGATIVE (NEGATIVE); PH,URINE 7.5 (5-9); PROTEIN,URINE NEGATIVE (NEGATIVE)
[2019-01-26 15:03] LABS: BASOPHILS % (AUTO) 0 % (0-10); EOSINOPHILS % (AUTO) 0 % (0-10); HEMATOCRIT 40 % (35-52); HEMOGLOBIN 13.5 G/DL (11.5-16.0); LYMPHOCYTES # (AUTO) 2.1 X 10^3 (1.0-4.0); LYMPHOCYTES % (AUTO) 16 % (12-44); MEAN CORPUSCULAR HEMOGLOBIN 30 PG (25-34); MEAN CORPUSCULAR HGB CONC 34 G/DL (32-36); MEAN CORPUSCULAR VOLUME 88 FL (80-99); MEAN PLATELET VOLUME 10.8 FL (7.4-10.4); MONOCYTES # (AUTO) 0.8 X 10^3 (0.0-1.0); MONOCYTES % (AUTO) 6 % (0-12); NEUTROPHILS # (AUTO) 10.5 X 10^3 (1.8-7.8); NEUTROPHILS % (AUTO) 78 % (42-75); PLATELET COUNT 242 10^3/uL (130-400); WHITE BLOOD COUNT 13.5 10^3/uL (4.3-11.0)
[2019-01-26 15:10] LABS: BACTERIA,URINE MODERATE /HPF
[2019-01-26 15:22] LABS: ALANINE AMINOTRANSFERASE 13 U/L (0-55); ALBUMIN 4.1 GM/DL (3.2-4.5); ALKALINE PHOSPHATASE 66 U/L (40-136); BILIRUBIN,TOTAL 0.3 MG/DL (0.1-1.0); BUN/CREATININE RATIO 16; CALCIUM 10.2 MG/DL (8.5-10.1); CARBON DIOXIDE 23 MMOL/L (21-32); CHLORIDE 105 MMOL/L (98-107); CREATININE SERUM 0.81 MG/DL (0.60-1.30); GFR ESTIMATED > 60; GLUCOSE 128 MG/DL (70-105); POTASSIUM 3.9 MMOL/L (3.6-5.0); SODIUM 138 MMOL/L (135-145); TOTAL PROTEIN 6.8 GM/DL (6.4-8.2)
[2019-01-26] MEDS ORDERED: PREN-54 PO (15:24)
[2019-01-26] MEDS ORDERED: CEPH-507 PO (15:24)
[2019-01-26 16:01] VITALS: BP 135/88
== END 2019-01-26 16:01 | disposition home or self-care (01) ==
LOC: EDUNIT# 14:28 → ER 14:29
DX: O23.40 Unspecified infection of urinary tract in pregnancy, unspecified trimester (principal); O16.9 Unspecified maternal hypertension, unspecified trimester; O99.330 Smoking (tobacco) complicating pregnancy, unspecified trimester; F17.210 Nicotine dependence, cigarettes, uncomplicated; Z3A.00 Weeks of gestation of pregnancy not specified; Z88.5 Allergy status to narcotic agent; Z90.89 Acquired absence of other organs; Z87.442 Personal history of urinary calculi; Z80.8 Family history of malignant neoplasm of other organs or systems; Z82.49 Family history of ischemic heart disease and other diseases of the circulatory system
CPT/HCPCS: 36415; 80053; 81000; 84702; 85025; 87077; 87088; 87186

== ENCOUNTER 2019-06-03 09:20 | Outpatient (CLI) | payer MEDICAID ==
[~2019-06-03 09:20] MED LIST changes: +PREN-54 PO
== END 2019-06-03 09:55 | disposition home or self-care (01) ==
LOC: WSo 09:20
PROVIDERS: ATTEND Obstetrics & Gynecology
DX: Z31.82 Encounter for Rh incompatibility status (principal)
CPT/HCPCS: 96372

== ENCOUNTER → 2019-06-26 | Outpatient (CLI) | payer MEDICAID | LOC: LABNPT 11:15 | PROVIDERS: ATTEND Obstetrics & Gynecology | DX: O28.8 Other abnormal findings on antenatal screening of mother (principal) | CPT/HCPCS: 82570; 84156 ==

== ENCOUNTER 2019-07-05 11:18 | Observation (INO) | payer MEDICAID ==
[~2019-07-05] VITALS: Ht 175.3 cm; Wt 124.4 kg
--- NOTE | 2019-07-05 11:18 | NUR ---
TAVON WALLACE presented to unit from home, accompanied by , with c/o VAGINAL PAIN. TAVON WALLACE weighed, gowned, voided, and to bed. EFHM and TOCO applied, VS taken. TAVON WALLACE oriented to bed controls, call light, TV, heat, and A/C controls.
[2019-07-05 11:30] VITALS: BP 136/76
--- NOTE | 2019-07-05 12:14 | NUR ---
Dr. Moy notified of patient's arrival, complaints, and exam. New orders received.
[2019-07-05 12:35] LABS: BILIRUBIN,URINE NEGATIVE (NEGATIVE); CLARITY,URINE CLOUDY; COLOR,URINE YELLOW; GLUCOSE, URINE (UA) NEGATIVE (NEGATIVE); KETONES,URINE NEGATIVE (NEGATIVE); LEUKOCYTE ESTERASE ,URINE 2+ (NEGATIVE); NITRITE,URINE POSITIVE (NEGATIVE); PH,URINE 6.5 (5-9); PROTEIN,URINE NEGATIVE (NEGATIVE)
[2019-07-05 12:42] LABS: BACTERIA,URINE LARGE /HPF; RBC,URINE 0-2 /HPF; SQUAMOUS EPITHELIAL CELL,UR 0-2 /HPF; WBC,URINE 50-100 /HPF
[2019-07-05 12:43] LABS: CALCIUM OXALATE CRYSTALS,UR RARE /LPF
--- NOTE | 2019-07-05 12:52 | NUR ---
Dr. Moy updated on patient's lab results, new orders received.
[2019-07-05 13:21] LABS: BILIRUBIN,URINE NEGATIVE (NEGATIVE); CLARITY,URINE SL CLOUDY; COLOR,URINE YELLOW; GLUCOSE, URINE (UA) NEGATIVE (NEGATIVE); KETONES,URINE NEGATIVE (NEGATIVE); LEUKOCYTE ESTERASE ,URINE 2+ (NEGATIVE); NITRITE,URINE NEGATIVE (NEGATIVE); PROTEIN,URINE NEGATIVE (NEGATIVE)
[2019-07-05 13:30] LABS: BACTERIA,URINE FEW /HPF; CALCIUM OXALATE CRYSTALS,UR RARE /LPF; WBC,URINE 50-100 /HPF
[2019-07-05 13:34] LABS: BASOPHILS % (AUTO) 0 % (0-10); EOSINOPHILS # (AUTO) 0.2 10^3/uL (0.0-0.3); EOSINOPHILS % (AUTO) 2 % (0-10); HEMATOCRIT 31 % (35-52); HEMOGLOBIN 10.4 G/DL (11.5-16.0); LYMPHOCYTES # (AUTO) 2.5 X 10^3 (1.0-4.0); LYMPHOCYTES % (AUTO) 17 % (12-44); MEAN CORPUSCULAR HEMOGLOBIN 30 PG (25-34); MEAN CORPUSCULAR HGB CONC 33 G/DL (32-36); MEAN CORPUSCULAR VOLUME 90 FL (80-99); MONOCYTES % (AUTO) 7 % (0-12); NEUTROPHILS # (AUTO) 10.9 X 10^3 (1.8-7.8); NEUTROPHILS % (AUTO) 75 % (42-75); PLATELET COUNT 267 10^3/uL (130-400); RED CELL DISTRIBUTION WIDTH 14.1 % (10.0-14.5); WHITE BLOOD COUNT 14.6 10^3/uL (4.3-11.0)
[2019-07-05] MEDS ORDERED: ceFAZolin 2 GM IV Premixed 50 ML ONE (13:38)
[2019-07-05] MEDS ORDERED: D5 LR IV SOLUTION 1,000 ML IV ONE (13:38)
--- NOTE | 2019-07-05 13:38 | NUR ---
Dr. Moy updated on ordered labs. New orders received.
[2019-07-05] MEDS ORDERED: LACTATED RINGERS 1,000 ML IV ONE (13:45)
[2019-07-05] MEDS ORDERED: D5 LR IV SOLUTION 1,000 ML IV SCH (13:45)
--- NOTE | 2019-07-05 13:53 | NUR ---
Dr. Moy updated on patient's GDM status. New orders received.
[2019-07-05] MEDS: ceFAZolin 2 GM IV Premixed 50 ML IV SCH ×2 (13:57→20:27)
[2019-07-05] MEDS: LACTATED RINGERS 1,000 ML IV SCH ×2 (13:57→22:47)
--- NOTE | 2019-07-05 13:57 | NUR ---
IV started x 1 attempt with 20g jelco in patient's right hand. IVF infusing per order.
[2019-07-05 13:59] LABS: BAND NEUTROPHILS 6 %; BASOPHILS % (MANUAL) 0 %; EOSINOPHILS % (MANUAL) 3 %; LYMPHOCYTES % (MANUAL) 14 %; MONOCYTES % (MANUAL) 7 %; NEUTROPHILS % (MANUAL) 70 %
[2019-07-05 14:00] LABS: RBC MORPH NORMAL
[2019-07-05 20:31] VITALS: BP 143/80
[2019-07-06 00:35] VITALS: BP 136/79
--- NOTE | 2019-07-06 00:37 | NUR ---
Patient cheerful in bed. States that her pain is a 0/10 and that this is the "first time I have been able to walk and not be doubled over." Patient voices no needs when asked. POC reviewed. Call light remains within reach.
[2019-07-06] MEDS: ceFAZolin 2 GM IV Premixed 50 ML IV SCH ×3 (01:57→13:55)
[2019-07-06 04:24] VITALS: BP 128/78
[2019-07-06] MEDS: LACTATED RINGERS 1,000 ML IV SCH (07:07)
--- NOTE | 2019-07-06 08:00 | NUR ---
DR. VIRAMONTES HERE TO SEE PT.
[2019-07-06 08:15] VITALS: BP 133/82
--- NOTE | 2019-07-06 08:15 | NUR ---
A. M. ASSESSMENT COMPLETED. DENIES ANY PAIN.
--- NOTE | 2019-07-06 08:23 | Progress Note ---
Standard Progress Note Progress Notes/Assess & Plan Date Seen by a Provider: July 06, 2019 Time Seen by a Provider: 08:21 Progress/Assessment & Plan Patient is without complaint. She is ambulating, voiding, tolerating oral intake. Has good pain control. She denies chest pain, denies shortness of breath, denies nausea vomiting, denies headache, denies back pain, denies contractions, denies rupture membranes or bleeding. Vital Signs Date Time Temp Pulse Resp B/P (MAP) Pulse Ox O2 Delivery O2 Flow Rate FiO2 07/06/19 04:24 36.6 80 18 128/78 (95) 99 Room Air 07/06/19 00:35 36.5 81 18 136/79 (98) 99 Room Air 07/05/19 20:31 36.4 97 18 143/80 (101) 99 Room Air 07/05/19 11:30 36.7 95 20 99 Room Air 07/05/19 11:30 36.7 99 20 136/76 (96) 98 Room Air 07/05/19 11:30 36.7 95 20 99 Room Air I & O 07/06/19 07:00 Intake Total 1050 ml Balance 1050 ml Vital signs are stable. Patient is afebrile. The abdomen is benign. The uterus is gravid. Extremities show no clubbing cyanosis. There is no Homans sign. Laboratory Tests Test 07/05/19 11:35 07/05/19 13:12 07/05/19 18:13 07/05/19 20:33 Range/Units Urine Color YELLOW YELLOW Urine Clarity CLOUDY SL CLOUDY Urine pH 6.5 7.0 5-9 Urine Specific [place] 1.015 L 1.015 L 1.016-1.022 Urine Protein NEGATIVE NEGATIVE NEGATIVE Urine Glucose (UA) NEGATIVE NEGATIVE NEGATIVE Urine Ketones NEGATIVE NEGATIVE NEGATIVE Urine Nitrite POSITIVE H NEGATIVE NEGATIVE Urine Bilirubin NEGATIVE NEGATIVE NEGATIVE Urine Urobilinogen 0.2 0.2 < = 1.0 MG/DL Urine Leukocyte Esterase 2+ H 2+ H NEGATIVE Urine RBC (Auto) TRACE-I TRACE-I NEGATIVE Urine RBC 0-2 2-5 H /HPF Urine WBC 50-100 H 50-100 H /HPF Urine Squamous Epithelial Cells 0-2 2-5 /HPF Urine Crystals PRESENT H PRESENT H /LPF Urine Calcium Oxalate Crystals RARE H RARE H /LPF Urine Bacteria LARGE H FEW H /HPF Urine Casts NONE NONE /LPF Urine Mucus NEGATIVE NEGATIVE /LPF Urine Culture Indicated YES CULTURE PENDING Glucometer 129 H 113 H 70-110 MG/DL UA is consistent with pyelonephritis Urine culture demonstrates Escherichia coli with sensitivities are pending Assessment and plan hospital day 2 in a patient with pyelonephritis in at 35 weeks gestation. Patient has improved since admission. We will continue IV antibiotics and consider discharge later today on oral antibiotics with follow-up in clinic Final Diagnosis Pyelonephritis at 35 weeks gestation NAOMIE VIRAMONTES MD July 06, 2019 08:23
--- NOTE | 2019-07-06 08:28 | History & Physical ---
History and Physical Date Seen by Provider: July 05, 2019 Time Seen by Provider: 19:25 This dictation is a late dictation for evaluation of this patient on the date and time noted above This patient is a 23-year-old 9 para 1 abortus 7 white female with an EDC of August 19, 2019. She presented with complaints of back pain and side pain pelvic pain and vaginal pain. She denies rupture membranes or bleeding. She has had frequent urinary tract infections. She recently completed a course of Macrobid for a UTI. Evaluation on admission included a urinalysis that was consistent with pyelonephritis. Patient was admitted for observation and IV antibiotics. Allergies are to lisinopril which causes dizziness Medications are vitamins Medical social and surgical histories are per the antepartum record HEENT exam is normal Neck is supple with no lymphadenopathy no thyromegaly Abdomen is gravid soft nontender nondistended Extremities show no clubbing cyanosis. There is no Homans sign. Back demonstrates CVA tenderness bilaterally more so on the right Pelvic exam is deferred monitor shows normal heart rate pattern with regular contractions CBC showed a white count that was elevated at 14,000 UA is consistent with pyelonephritis with culture pending Assessment and plan 35 week gestation in patient with urinary tract infection presenting now with pyelonephritis. Patient is admitted for observation and IV fluids and IV antibiotics. Patient is requesting discharge as soon as possible. Plan will be for evaluation after 24 -48 hours of IV antibiotics. Patient should remain afebrile and her white blood cell count does not increase and she is symptomatically improved we will consider discharge home on oral antibiotics with follow-up in clinic Allergies and Home Medications Allergies Coded Allergies: lisinopril (Verified Allergy, Mild, 07/05/19) hydrocodone (Verified Allergy, Unknown, 12/02/18) strawberry (Verified Allergy, Unknown, 08/18/17) Patient Home Medication List Home Medication List Reviewed: Yes NAOMIE VIRAMONTES MD July 06, 2019 08:28
[2019-07-06] MEDS ORDERED: CEFA500C PO (08:32)
--- NOTE | 2019-07-06 08:33 | Discharge Inst-Surgical ---
Discharge Inst-Surgical Depart Medication/Instructions New, Converted or Re-Newed RX: Call to Patients Pharmacy Consults/Follow Up Patient Instructions: As directed Orders & Referrals Return to clinic for any signs symptoms or indications of worsening of urinary tract infections Return to clinic for any signs symptoms and indications of labor Return to clinic for persistent or progressive severe pain Return to Clinic as scheduled for follow-up OB Activity Activity as Tolerated: Yes Diet Discharge Diet: No Restrictions NAOMIE VIRAMONTES MD July 06, 2019 08:33
[2019-07-06 09:05] LABS: BASOPHILS % (AUTO) 0 % (0-10); EOSINOPHILS # (AUTO) 0.3 10^3/uL (0.0-0.3); EOSINOPHILS % (AUTO) 2 % (0-10); HEMATOCRIT 31 % (35-52); HEMOGLOBIN 10.3 G/DL (11.5-16.0); LYMPHOCYTES # (AUTO) 2.8 X 10^3 (1.0-4.0); LYMPHOCYTES % (AUTO) 24 % (12-44); MEAN CORPUSCULAR HEMOGLOBIN 30 PG (25-34); MEAN CORPUSCULAR HGB CONC 34 G/DL (32-36); MEAN CORPUSCULAR VOLUME 89 FL (80-99); MEAN PLATELET VOLUME 10.7 FL (7.4-10.4); MONOCYTES # (AUTO) 0.8 X 10^3 (0.0-1.0); MONOCYTES % (AUTO) 7 % (0-12); NEUTROPHILS # (AUTO) 7.8 X 10^3 (1.8-7.8); NEUTROPHILS % (AUTO) 66 % (42-75); PLATELET COUNT 252 10^3/uL (130-400); RED CELL DISTRIBUTION WIDTH 14.2 % (10.0-14.5); WHITE BLOOD COUNT 11.7 10^3/uL (4.3-11.0)
--- NOTE | 2019-07-06 10:13 | NUR ---
2 H PP BS 138 MGS/DL.
--- NOTE | 2019-07-06 11:00 | NUR ---
SLEEPING QUIETLY. NO APPARENT DISTRESS.
[2019-07-06 13:00] VITALS: BP 138/82
--- NOTE | 2019-07-06 13:27 | NUR ---
EFM APPLIED FOR NST. VERY ACTIVE FETUS WITH SOME DIFFICULTY KEEPING ON THE MONITOR. USING A SANDBAG. MOM ON HER LEFT SIDE.
--- NOTE | 2019-07-06 13:55 | NUR ---
LAST DOSE OF ANCEF STARTED. IV SITE CLEAR.
[2019-07-06 14:10] VITALS: BP 138/82
--- NOTE | 2019-07-06 14:12 | NUR ---
EFM OFF. REACTIVE NST. SEE NST INTERVENTION.
--- NOTE | 2019-07-06 14:59 | NUR ---
2 HOUR PP BS 141 MGS/DL.
--- NOTE | 2019-07-06 15:05 | NUR ---
DISCHARGE INSTRUCTIONS REVIEWED WITH COPY TO PT. STATES UNDERSTANDING OF ALL INSTRUCTIONS AND NEED TO F/U SCHEDULED AND NEEDED.
[2019-07-06 15:10] VITALS: BP 138/82
--- NOTE | 2019-07-06 15:10 | NUR ---
DISMISSED AMB FROM [facility] IN STABLE CONDITION TO WAITING FAMILY CAR ACC BY RAVINDER GRECO.
== END 2019-07-06 15:10 | disposition home or self-care (01) ==
LOC: WSo 11:18 → LDRP 11:18 → WSo 13:38 → LDRP 19:40
PROVIDERS: ADMIT Obstetrics & Gynecology; ATTEND Obstetrics & Gynecology
DX: O23.03 Infections of kidney in pregnancy, third trimester (principal); O23.43 Unspecified infection of urinary tract in pregnancy, third trimester; O26.893 Other specified pregnancy related conditions, third trimester; M54.9 Dorsalgia, unspecified; Z88.5 Allergy status to narcotic agent; Z3A.35 35 weeks gestation of pregnancy; Z88.8 Allergy status to other drugs, medicaments and biological substances; Z91.018 Allergy to other foods
CPT/HCPCS: 36415; 81000; 82962; 85007; 85025; 85027; 87077; 87088; 87186; 87210; 96361; 96374; 96376; 99211; G0378

== ENCOUNTER → 2019-07-18 | Outpatient (CLI) | payer MEDICAID ==
[~2019-07-18] MED LIST changes: +CEFA500C PO
== END ==
LOC: LABNPT 11:47
PROVIDERS: ATTEND Obstetrics & Gynecology
DX: O28.8 Other abnormal findings on antenatal screening of mother (principal)
CPT/HCPCS: 82570; 84156

== ENCOUNTER → 2019-07-22 | Outpatient (CLI) | payer MEDICAID ==
[~2019-07-22] MED LIST changes: +DOCU-143 PO; +IBUP-1780 PO; +OXYC1TAB12 PO
== END ==
LOC: LABNPT 10:00
PROVIDERS: ATTEND Obstetrics & Gynecology
DX: O28.8 Other abnormal findings on antenatal screening of mother (principal); Z3A.00 Weeks of gestation of pregnancy not specified
CPT/HCPCS: 82570; 84156

== ENCOUNTER 2019-07-25 08:36 | Outpatient (RCR) | payer MEDICAID ==
[~2019-07-25] VITALS: Ht 175 cm; Wt 124.0 kg
[~2019-07-25 08:36] MED LIST changes: -DOCU-143 PO; -IBUP-1780 PO; -OXYC1TAB12 PO
[2019-07-25] MEDS ORDERED: OXYC1TAB12 PO (11:50)
[2019-07-25] MEDS ORDERED: IBUP-1780 PO (11:50)
[2019-07-25] MEDS ORDERED: DOCU-143 PO (11:50)
--- NOTE | 2019-07-25 11:51 | Discharge Inst-Surgical ---
Discharge Inst-Surgical Depart Medication/Instructions New, Converted or Re-Newed RX: RX on Chart Consults/Follow Up Patient Instructions: as directed Orders & Referrals Follow Up Appt: RTC 1 week for incision check. Call to make follow up appt. for patient in 4 weeks. Wound Care: Remove twyla, apply benzoin and steri strips. Activity Per routine post instructions. Please call in RX to patient pharmacy. Diet as tolerated Patient may shower or tub bathe as desired. Continue home meds Activity Activity as Tolerated: No Diet Discharge Diet: No Restrictions NAOMIE VIRAMONTES MD Jul 25, 2019 11:51
== END 2019-07-25 16:16 | disposition home or self-care (01) ==
LOC: PREOP 08:36
PROVIDERS: ATTEND Obstetrics & Gynecology
DX: Z01.812 Encounter for preprocedural laboratory examination (principal); Z11.59 Encounter for screening for other viral diseases
CPT/HCPCS: 87635

== ENCOUNTER 2019-07-29 09:46 | Inpatient (IN) | payer MEDICAID ==
[2019-07-29] VITALS (10 sets, daily range): BP systolic 115–158; BP diastolic 71–99
[~2019-07-29] VITALS: Ht 176 cm; Wt 126.5 kg
[~2019-07-29 09:46] MED LIST changes: +DOCU-143 PO; +IBUP-1780 PO; +OXYC1TAB12 PO
--- NOTE | 2019-07-29 09:58 | NUR ---
TAVON WALLACE presented to unit via amb from home, accompanied by , for a repeat section by ANA M. TAVON WALLACE weighed, gowned, voided, and to bed. EFHM and TOCO applied, VS taken. TAVON WALLACE oriented to bed controls, call light, TV, heat, and A/C controls.
[2019-07-29] MEDS ORDERED: D5 LR IV SOLUTION 1,000 ML IV SCH ×2 (10:05→14:23)
[2019-07-29] MEDS ORDERED: metroNIDAZOLE 500MG/100ML IVPB 100 ML IV ONE (10:15)
[2019-07-29] MEDS ORDERED: ceFAZolin INJECTION 2,000 MG in WATER (STERILE) FOR INJECTION 10 ML IV ONE (10:15)
[2019-07-29 10:45] LABS: BASOPHILS % (AUTO) 0 % (0-10); EOSINOPHILS # (AUTO) 0.2 10^3/uL (0.0-0.3); EOSINOPHILS % (AUTO) 2 % (0-10); HEMATOCRIT 31 % (35-52); HEMOGLOBIN 10.2 G/DL (11.5-16.0); LYMPHOCYTES # (AUTO) 2.4 X 10^3 (1.0-4.0); LYMPHOCYTES % (AUTO) 19 % (12-44); MEAN CORPUSCULAR HEMOGLOBIN 29 PG (25-34); MEAN CORPUSCULAR HGB CONC 33 G/DL (32-36); MEAN CORPUSCULAR VOLUME 89 FL (80-99); MEAN PLATELET VOLUME 10.6 FL (7.4-10.4); MONOCYTES # (AUTO) 0.8 X 10^3 (0.0-1.0); MONOCYTES % (AUTO) 7 % (0-12); NEUTROPHILS # (AUTO) 9.2 X 10^3 (1.8-7.8); NEUTROPHILS % (AUTO) 73 % (42-75); PLATELET COUNT 280 10^3/uL (130-400); RED CELL DISTRIBUTION WIDTH 14.5 % (10.0-14.5); WHITE BLOOD COUNT 12.6 10^3/uL (4.3-11.0)
[2019-07-29] MEDS ORDERED: METOCLOPRAMIDE INJ 10 MG/2 ML (REGLAN) ONE (11:09)
[2019-07-29] MEDS ORDERED: CITRIC ACID/SOB CIT (BICITRA) 30 ML UDC ONE (11:10)
[2019-07-29] MEDS ORDERED: FAMOTIDINE 20MG/2ML IV (PEPCID) ONE (11:10)
[2019-07-29] MEDS ORDERED: ceFAZolin 2 GM IV Premixed 50 ML ONE (11:18)
--- NOTE | 2019-07-29 11:25 | NUR ---
dr selby to OB. surgery crew at bedside. see eMAR for preop meds.
--- NOTE | 2019-07-29 11:35 | History & Physical ---
History and Physical Date Seen by Provider: Jul 29, 2019 Time Seen by Provider: 11:32 This patient is a 23-year-old 9 para 1 SAB 7 female with a due date the 2019 referring her now at 37+ weeks gestation. He presents for repeat delivery secondary to PIH. Patient denies rupture membranes or bleeding. Patient has had persistent episodes of contractions and pain throughout the but no definite etiology for the pain other than her . Her GBS culture was negative. Allergies are to lisinopril Medications are vitamins Medical social and surgical history as far record HEENT exam is normal Neck is supple no lymphadenopathy no thyromegaly Abdomen is gravid soft nontender nondistended Extremities show no clubbing or cyanosis. There is no Homans sign. Pelvic exam is deferred Assessment and plan term at 37 weeks gestation with significant PIH and a previous . Plan is for admission for repeat delivery 37 weeks with previous and with PIH Allergies and Home Medications Allergies Coded Allergies: lisinopril (Verified Allergy, Mild, 07/23/19) hydrocodone (Verified Allergy, Unknown, 07/23/19) strawberry (Verified Allergy, Unknown, 07/23/19) Home Medications Cefadroxil 500 Mg Capsule, 500 MG PO Q6H Patient is to take Keflex 4 times daily for 10 days then twice a day for the duration of her Prescribed by: NAOMIE CALIX on 07/06/19 0832 Docusate Sodium 100 Mg Capsule, 100 MG PO BID Prescribed by: NAOMIE CALIX on 07/25/19 1150 Ibuprofen 800 Mg Tablet, 800 MG PO Q6H PRN for PAIN Prescribed by: NAOMIE CALIX on 07/25/19 1150 Oxycodone HCl/Acetaminophen 1 Each Tablet, 1 TAB PO Q4H PRN for PAIN-MODERATE Prescribed by: NAOMIE CALIX on 07/25/19 1150 Patient Home Medication List Home Medication List Reviewed: Yes NAOMIE VIRAMONTES MD Jul 29, 2019 11:35
[2019-07-29] MEDS ORDERED: DEXAMETHASONE 10 MG/ML (DECADRON) 1 ML VIAL ONE (11:45)
[2019-07-29] MEDS ORDERED: FAMOTIDINE 20MG/2ML IV (PEPCID) IV ONE (11:45)
[2019-07-29] MEDS ORDERED: METOCLOPRAMIDE INJ 10 MG/2 ML (REGLAN) IV ONE (11:45)
[2019-07-29] MEDS ORDERED: CITRIC ACID/SOB CIT (BICITRA) 30 ML UDC PO ONE (11:45)
[2019-07-29] MEDS ORDERED: ONDANSETRON 4 MG/2 ML (SDV) Z0FRAN ONE ×2 (11:45→12:24)
[2019-07-29] MEDS ORDERED: fentaNYL INJECTION 100 MCG/2 ML AMP ONE (11:45)
[2019-07-29] MEDS ORDERED: KETOROLAC 30 MG/ML VIAL ONE (12:24)
[2019-07-29] MEDS ORDERED: OXYTOCIN PRE-MIX DRIP 1,000 ML IV ONE (12:25)
[2019-07-29] MEDS ORDERED: BUPIVACAINE 0.25% 30 ML (SENSORCAINE) VIAL ONE (12:34)
[2019-07-29] MEDS ORDERED: ONDANSETRON 4 MG/2 ML (SDV) Z0FRAN IVP PRN (14:30)
[2019-07-29] MEDS ORDERED: TETANUS,DIPTH,PERTUSS P/F (BOOSTRIX) 0.5 ML VIAL IM ONE (14:30)
[2019-07-29] MEDS ORDERED: MEASLES,MUMPS,RUBELLA 1 EA INJ SC ONE (14:30)
[2019-07-29] MEDS ORDERED: oxyCODONE/APAP 10/325MG (PERCOCET 10) TABLET PO ONE (14:51)
--- NOTE | 2019-07-29 15:00 | NUR ---
CARING FOR INFANT. GOOD INTERACTION NOTED. S.O. AT BEDSIDE. TAKING FLUIDS WELL.
--- NOTE | 2019-07-29 16:30 | NUR ---
FF U/2. VAG FLOW LT/MOD RUBRA. PAD CHANGE WITH MOD AMOUNT OF BLOOD ON PAD. DENIES URGE TO VOID AT THIS TIME. ENCOURAGED PT TO ALERT STAFF WHEN READY TO TRY TO VOID AND THAT WILL HAVE TO TRY SOON.
[2019-07-29] MEDS: OXYTOCIN PRE-MIX DRIP 500 ML IV SCH ×2 (16:50→19:59)
--- NOTE | 2019-07-29 17:30 | NUR ---
UP TO THE BATHROOM WITH ASSISTANCE. VOIDED 300 MLS OF BLOODY URINE. PERICARE WITH PAD CHANGE. ASSISTED BACK TO BED. FF U/2. VAG FLOW LT/MOD RUBRA. READY TO EAT DINNER.
--- NOTE | 2019-07-29 17:35 | NUR ---
RT NOTIFIED OF NEED FOR INCENTIVE SPIROMETRY.
[2019-07-29] MEDS: KETOROLAC 30 MG/ML VIAL IVP SCH (18:19)
--- NOTE | 2019-07-29 18:35 | NUR ---
UP TO THE BATHROOM WITH ASSIST. VOIDED 200 CC BLOODY URINE. PERICARE WITH PAD CHANGE. AMBULATED BACK TO BED WITHOUT PROBLEMS.
[2019-07-29] MEDS: DOCUSATE SODIUM 100 MG (COLACE) CAP PO SCH (19:58)
[2019-07-29] MEDS: oxyCODONE/APAP 10/325MG (PERCOCET 10) TABLET PO PRN (20:58)
[2019-07-29] MEDS ORDERED: DOCUSATE SODIUM 100 MG (COLACE) CAP PO SCH (21:00)
--- NOTE | 2019-07-29 21:32 | OPERATIVE REPORT ---
DATE OF SERVICE: 07/29/2019 PREOPERATIVE DIAGNOSIS: Term at 37 weeks gestation with PIH and previous . POSTOPERATIVE DIAGNOSIS: Term at 37 weeks gestation with PIH and previous . OPERATIVE PROCEDURE: Repeat low transverse delivery of a viable male with Apgars of 8 and 9 at one and five minutes respectively, weight of 7 pounds 4 ounces. Cord blood pH is pending and a time of 12:10. OPERATIVE DESCRIPTION: With the patient in the supine position under satisfactory spinal analgesia, she was prepped and draped in the usual fashion for abdominal surgery. Driscoll catheter was placed in the urinary bladder. A repeat Pfannenstiel incision was made through skin with scalpel, the patient's abdomen entered in the usual manner. Bladder retractor placed in position, clean scalpel used to make a 4 cm hysterotomy incision transversely across the lower uterine segment that was extended by blunt dissection. On amniotomy, copious clear fluid was released. Kaplan forceps were applied to facilitate the delivery of a vigorous viable male . The had stats as noted above. The was bulb suctioned on delivery of the head and again on completion of delivery. The umbilical cord was doubly clamped and cut and the infant passed to the pediatric nurse in attendance for delivery. Cord bloods were obtained. The placenta delivered spontaneously Ruffin. It was normal with a 3-vessel cord. The uterus was exteriorized and interior wiped clean with a wet laparotomy sponge. Uterine incision closed with a running locked suture of 2-0 Vicryl. Hemostasis was complete. The uterus was returned to abdominal cavity. All blood clot and debris was removed from the abdominal cavity. The rectus fascia was now closed with a running suture of 2-0 Vicryl, the subcutaneous tissue was closed with 2-0 Vicryl. The skin was stapled. The peritoneum had been closed with a layer of 2-0 Vicryl as well. Sponge and needle counts were correct. Estimated blood loss was around 500 mL. The patient tolerated the procedure well and was transferred to recovery room in stable condition. The remained with the mom in the OR. Job ID: [id number] DocumentID: [id number] Dictated Date: 07/29/2019 12:31:17 Brick Grader Date: 07/29/2019 21:08:51 Dictated By: NAOMIE VIRAMONTES MD
[2019-07-30] VITALS (7 sets, daily range): BP systolic 144–191; BP diastolic 89–121
[2019-07-30] MEDS: KETOROLAC 30 MG/ML VIAL IVP SCH ×2 (00:04→05:46)
--- NOTE | 2019-07-30 07:46 | Progress Note ---
Standard Progress Note Progress Notes/Assess & Plan Date Seen by a Provider: Jul 30, 2019 Time Seen by a Provider: 07:44 Progress/Assessment & Plan This patient is without complaint. She is ambulating, voiding, tolerating oral intake well has good pain control. She denies chest pain, denies shortness of breath, denies headache, and denies nausea vomiting. Vital Signs Date Time Temp Pulse Resp B/P (MAP) Pulse Ox O2 Delivery O2 Flow Rate FiO2 07/30/19 04:00 36.1 74 18 165/93 (117) 96 Room Air 07/30/19 00:04 36.3 73 18 160/99 (119) 95 Room Air 07/29/19 20:00 36.4 79 18 158/87 (110) 99 Room Air 07/29/19 18:30 Room Air 07/29/19 16:30 36.7 82 18 152/91 (111) 97 Room Air 07/29/19 14:45 36.6 80 20 140/91 (107) 98 Room Air 07/29/19 13:30 Room Air 07/29/19 13:30 36.7 83 20 124/77 (93) 99 Room Air 07/29/19 13:25 36.4 20 117/72 (87) 97 Room Air 07/29/19 13:25 Room Air 07/29/19 13:15 Room Air 07/29/19 13:15 36.5 20 124/77 (93) 99 Room Air 07/29/19 13:00 Room Air 07/29/19 13:00 36.5 18 115/73 (87) 100 Room Air 07/29/19 12:46 Room Air 07/29/19 12:46 36.3 18 115/99 (104) 97 Room Air 07/29/19 12:31 Room Air 07/29/19 12:31 36.8 18 118/71 (87) 99 Room Air 07/29/19 10:10 36.6 92 18 97 Room Air I & O 07/30/19 07:00 Intake Total 4800 ml Output Total 1300 ml Balance 3500 ml Patient's vital signs are relatively stable her blood pressures are elevated The abdomen is benign. The surgical incision is clean dry and intact. Fundus is firm below the umbilicus and nontender. Extremities show no clubbing or cyanosis. There is no Homans sign. There is fairly notable pretibial pitting edema. Assessment and plan postoperative day number 1 status post repeat delivery at 37 weeks gestation due to PIH. This patient does have a history of pre-existing hypertension and had been on lisinopril which she indicates she can no longer take. We will start her on labetalol today Final Diagnosis 37 week repeat delivery NAOMIE VIRAMONTES MD Jul 30, 2019 07:46
[2019-07-30] MEDS: oxyCODONE/APAP 10/325MG (PERCOCET 10) TABLET PO PRN ×3 (08:01→22:51)
--- NOTE | 2019-07-30 08:01 | Anesthesia-Regional Post-Op ---
Regional Patient Condition Mental Status: Alert, Oriented x3 Circulation: Same as Pre-Op Headache: Absent Sensation: Full Recovery Motor Block: Absent Post Op Complications Complications None Follow Up Care/Instructions Patient Instructions None needed. Anesthesia/Patient Condition Patient is doing well, no complaints, stable vital signs, no apparent adverse anesthesia problems. No complications reported per nursing. D/C home per [facility] Criteria: No DASIA LARES CRNA Jul 30, 2019 08:01
[2019-07-30] MEDS: DOCUSATE SODIUM 100 MG (COLACE) CAP PO SCH ×2 (08:02→20:40)
[2019-07-30] MEDS: LABETALOL 200 MG (NORMODYNE) TAB PO SCH ×3 (08:16→20:49)
[2019-07-30] MEDS ORDERED: IBUPROFEN 800 MG (MOTRIN) TAB PO ONE ×2 (12:00→20:37)
[2019-07-30] MEDS: IBUPROFEN 800 MG (MOTRIN) TAB PO SCH (20:40)
--- NOTE | 2019-07-30 20:45 | NUR ---
Called Dr. Moy to inform of BP results, report given, new order rc'd for Labetalol 200 mg PO BID, D/C Labetalol 100 mg PO BID.
[2019-07-31 02:17] VITALS: BP 155/96
[2019-07-31] MEDS: IBUPROFEN 800 MG (MOTRIN) TAB PO SCH ×2 (02:17→08:26)
--- NOTE | 2019-07-31 07:45 | NUR ---
Dr Moy to see patient. New orders for discharge received.
--- NOTE | 2019-07-31 07:54 | Progress Note ---
Standard Progress Note Progress Notes/Assess & Plan Date Seen by a Provider: Jul 31, 2019 Time Seen by a Provider: 07:52 Progress/Assessment & Plan This patient is without complaint. She is ambulating, voiding, tolerating oral intake well has good pain control. She denies chest pain, denies shortness of breath, denies headache, and denies nausea vomiting. Vital Signs Date Time Temp Pulse Resp B/P (MAP) Pulse Ox O2 Delivery O2 Flow Rate FiO2 07/30/19 04:00 36.1 74 18 165/93 (117) 96 Room Air 07/30/19 00:04 36.3 73 18 160/99 (119) 95 Room Air 07/29/19 20:00 36.4 79 18 158/87 (110) 99 Room Air 07/29/19 18:30 Room Air 07/29/19 16:30 36.7 82 18 152/91 (111) 97 Room Air 07/29/19 14:45 36.6 80 20 140/91 (107) 98 Room Air 07/29/19 13:30 Room Air 07/29/19 13:30 36.7 83 20 124/77 (93) 99 Room Air 07/29/19 13:25 36.4 20 117/72 (87) 97 Room Air 07/29/19 13:25 Room Air 07/29/19 13:15 Room Air 07/29/19 13:15 36.5 20 124/77 (93) 99 Room Air 07/29/19 13:00 Room Air 07/29/19 13:00 36.5 18 115/73 (87) 100 Room Air 07/29/19 12:46 Room Air 07/29/19 12:46 36.3 18 115/99 (104) 97 Room Air 07/29/19 12:31 Room Air 07/29/19 12:31 36.8 18 118/71 (87) 99 Room Air 07/29/19 10:10 36.6 92 18 97 Room Air I & O 07/30/19 07:00 Intake Total 4800 ml Output Total 1300 ml Balance 3500 ml Patient's vital signs are relatively stable her blood pressures are elevated The abdomen is benign. The surgical incision is clean dry and intact. Fundus is firm below the umbilicus and nontender. Extremities show no clubbing or cyanosis. There is no Homans sign. There is fairly notable pretibial pitting edema. Assessment and plan postoperative day number 1 status post repeat delivery at 37 weeks gestation due to PIH. This patient does have a history of pre-existing hypertension and had been on lisinopril which she indicates she can no longer take. We will start her on labetalol today July 31, 2019 Patient without complaint. She is ambulating, voiding, tolerating oral intake well has good pain control. Vital Signs Date Time Temp Pulse Resp B/P (MAP) Pulse Ox O2 Delivery O2 Flow Rate FiO2 07/31/19 02:17 36.3 76 18 155/96 (115) 98 Room Air 07/30/19 22:40 36.4 83 18 144/89 (107) 98 Room Air 07/30/19 20:40 37.0 101 16 191/121 (144) 100 Room Air 07/30/19 15:55 36.3 85 16 151/94 (113) 98 07/30/19 12:05 36.7 86 16 165/110 (128) 98 Room Air I & O 07/31/19 07:00 Intake Total 600 ml Balance 600 ml Vital signs are stable blood pressures are somewhat labile but improving on the labetalol patient is afebrile The abdomen is benign. The surgical incision is clean dry and intact. Fundus is firm below the umbilicus and nontender. Extreme show no clubbing or cyanosis. There is no Homans sign. There is notable pretibial pitting edema that is normal. Assessment and plan postoperative day 2 status post repeat delivery at 37 weeks gestation plan is for discharge home on labetalol with follow-up in clinic Final Diagnosis 37 week repeat NAOMIE VIRAMONTES MD Jul 31, 2019 07:54
[2019-07-31] MEDS ORDERED: DOCU-143 PO (07:55)
[2019-07-31] MEDS ORDERED: LABE200T7 PO (07:55)
[2019-07-31] MEDS ORDERED: OXYC1TAB12 PO (07:55)
[2019-07-31] MEDS ORDERED: IBUP-1780 PO (07:55)
--- NOTE | 2019-07-31 07:56 | Discharge Inst-Surgical ---
Discharge Inst-Surgical Depart Medication/Instructions New, Converted or Re-Newed RX: RX on Chart Consults/Follow Up Patient Instructions: as directed Orders & Referrals Follow Up Appt: RTC 1 week for incision check. Call to make follow up appt. for patient in 4 weeks. Wound Care: Remove twyla, apply benzoin and steri strips. Activity Per routine post instructions. Please call in RX to patient pharmacy. Diet as tolerated Patient may shower or tub bathe as desired. Continue home meds Activity Activity as Tolerated: No Diet Discharge Diet: No Restrictions NAOMIE VIRAMONTES MD Jul 31, 2019 07:56
[2019-07-31 08:23] VITALS: BP 151/95
[2019-07-31] MEDS: LABETALOL 200 MG (NORMODYNE) TAB PO SCH (08:26)
[2019-07-31] MEDS: DOCUSATE SODIUM 100 MG (COLACE) CAP PO SCH (08:26)
[2019-07-31] MEDS: oxyCODONE/APAP 10/325MG (PERCOCET 10) TABLET PO PRN (08:27)
--- NOTE | 2019-07-31 09:11 | NUR ---
prescriptions called to pharmacy. percocet prescription given to to take to pharamcy
--- NOTE | 2019-07-31 10:02 | NUR ---
rn to pt room to remove twyla. pt sleeping at this time.
--- NOTE | 2019-07-31 10:45 | NUR ---
prescriptions delivered by [facility] pharmacy and to bedside table per this RN. medications and medication frequency discussed with pt and pt verbalized understanding.
--- NOTE | 2019-07-31 10:52 | NUR ---
twyla discontinued, benzoin and steri strips applied.
--- NOTE | 2019-07-31 11:30 | NUR ---
Discharge instructions explained, signed and copy to patient. pt verbalized understanding of instructions and denied questions. discussed with pt about room in parent instructions.
--- NOTE | 2019-07-31 11:34 | NUR ---
Discharged to room in parent at this time.
[2019-08-03] MEDS ORDERED: IBUPROFEN 800 MG (MOTRIN) TAB PO SCH (20:30)
== END 2019-07-31 11:34 | disposition home or self-care (01) | DRG 788 ==
LOC: LDRP 09:46
PROVIDERS: ADMIT Obstetrics & Gynecology; ATTEND Obstetrics & Gynecology
PROC: 10D00Z1 Extraction of Products of Conception, Low, Open Approach (ICD-10-PCS; principal; 2019-07-29 12:04)
DX: O10.92 Unspecified pre-existing hypertension complicating childbirth (principal); O34.211 Maternal care for low transverse scar from previous cesarean delivery; O99.344 Other mental disorders complicating childbirth; F32.9 Major depressive disorder, single episode, unspecified; Z3A.37 37 weeks gestation of pregnancy; Z37.0 Single live birth; Z87.891 Personal history of nicotine dependence
CPT/HCPCS: 36415; 83033; 85025; 86850; 86900; 86901; 87081; 94664

== ENCOUNTER 2019-10-30 22:20 | Emergency (ER) | payer MEDICAID ==
[~2019-10-30] VITALS: Ht 175.3 cm; Wt 117.9 kg
[~2019-10-30 22:20] MED LIST changes: +LABE200T7 PO
--- NOTE | 2019-10-30 22:48 | ED EENT ---
History of Present Illness General Chief Complaint: Dental Problems/Pain Stated Complaint: FACIAL SWELLING;FACIAL PAIN Nursing Triage Note: pt amb to rm 7 with complaint of right sided facial swelling and pain. states has broken tooth on back tooth. has not been seen by pcp/dentist. states has been going on for a while. Source: patient History of Present Illness Date Seen by Provider: Oct 30, 2019 Time Seen by Provider: 22:45 Initial Comments PT ARRIVES VIA POV FROM HOME C/O DENTAL PAIN --RIGHT UPPER MOLAR PAIN HAS BEEN ONGOING FOR "AWHILE" BUT HAS BEEN GETTING WORSE OVER THE LAST MONTH OR MORE STATES TODAY THE RIGHT SIDE OF HER FACE HAS BEEN SWOLLEN NO FEVER STATES SHE HAD ADJACENT TOOTH PULLED IN THE LAST YEAR--GOES TO [facility], AND HAS HAD ALL 4 WISDOM TEETH PULLED IN THE PAST HAS NOT FOLLOWED UP WITH DENTIST SINCE LAST YEAR DELIVERED 3 MONTHS AGO. NOT BREAST FEEDING NO CONTROL LMP 1 MONTH AGO. [facility] Allergies and Home Medications Allergies Coded Allergies: lisinopril (Verified Allergy, Mild, 07/23/19) hydrocodone (Verified Allergy, Unknown, 07/23/19) strawberry (Verified Allergy, Unknown, 07/23/19) Home Medications Amoxicillin/Potassium Clav 1 Each Tablet, 1 EACH PO BID Prescribed by: TAVON PANDYA on 10/30/192299 Docusate Sodium 100 Mg Capsule, 100 MG PO BID Prescribed by: NAOMIE CALIX on 07/31/19 075 Ibuprofen 800 Mg Tablet, 800 MG PO Q6H PRN for PAIN Prescribed by: NAOMIE CALIX on 07/31/19 075 Labetalol HCl 200 Mg Tablet, 200 MG PO BID Prescribed by: NAOMIE CALIX on 07/31/19 075 Lidocaine HCl 15 Ml Solution, 1-2 ML MM [id number] Prescribed by: TAVON PANDYA on 10/30/19 230 Naproxen 500 Mg Tablet.dr, 500 MG PO BID Prescribed by: TAVON PANDYA on 10/30/192299 Oxycodone HCl/Acetaminophen 1 Each Tablet, 1 TAB PO Q4H PRN for PAIN-MODERATE Prescribed by: NAOMIE CALIX on 07/31/19 075 Patient Home Medication List Home Medication List Reviewed: Yes Review of Systems Review of Systems Constitutional: no symptoms reported; No fever Eyes: No Symptoms Reported Ears: No Symptoms Reported Nose: no symptoms reported Mouth: see HPI, pain, swelling Throat: no symptoms reported Respiratory: no symptoms reported Cardiovascular: no symptoms reported Gastrointestinal: no symptoms reported : No LMP: Sep 30, 2019 Musculoskeletal: no symptoms reported; No neck pain Skin: no symptoms reported Neurological: No Symptoms Reported; Denies Headache Past Gtmptmk-Aelsuc-Tpnhaa Hx Past Med/Social Hx: Reviewed and Corrections made Patient Social History Alcohol Use: Denies Use Recreational Drug Use: No Smoking Status: Current Everyday Smoker Type Used: Cigarettes 2nd Hand Smoke Exposure: Yes Recent Foreign Travel: No Contact w/Someone Who Travel: No Recent Infectious Disease Expo: No Recent Hopitalizations: Yes (JUNE 2019-[facility]) Immunizations Up To Date PED Vaccines UTD: Yes Seasonal Allergies Seasonal Allergies: No Past Medical History Surgeries: Yes (LITHOTRIPSY, URETERAL STENT; WISDOM TEETH PULLED) Renal, Tonsillectomy Respiratory: No Currently Using CPAP: No Currently Using BIPAP: No Cardiac: Yes Hypertension Neurological: No Reproductive Disorders: No Female Reproductive Disorders: Denies Sexually Transmitted Disease: No HIV/AIDS: No Genitourinary: Yes Kidney Stones Gastrointestinal: No Musculoskeletal: No Endocrine: Yes (GESTATIONAL DIABETES) HEENT: Yes (DENTAL CARIES) Loss of Vision: Denies Hearing Impairment: Denies Cancer: No Psychosocial: No Integumentary: No Blood Disorders: No Adverse Reaction/Blood Tranf: No (HAS HAD BLOOD WITH NO REACTION) Family Medical History Autism G8 BROTHER Diabetes mellitus 19 FATHER FH: throat cancer 19 FATHER Hypertension 19 FATHER 19 MOTHER G8 BROTHER No Pertinent Family Hx Physical Exam Vital Signs Vital Signs - First Documented 10/30/19 22:34 Temp 36.1 Pulse 93 Resp 20 B/P (MAP) 192/121 (144) Pulse Ox 97 O2 Delivery Room Air Height, Weight, BMI Height: 5'9.00" Weight: 254lbs. 2.0oz. 115.978465th; 38.00 BMI Method:Stated General Appearance: no apparent distress, obese Eyes: bilateral eye normal inspection Ears: bilateral ear auricle normal, bilateral ear canal normal, bilateral ear TM normal Nose: normal inspection Mouth/Throat: No mandibular swelling, No maxillary swelling; other (LEFT UPPER 2ND MOLAR WITH EXTENSIVE CARIES, MILD ADJACENT GUM INFLAMMATION. DO NOT APPRECIATE ANY SIGNIFICANT SWELLING TO FACE. ) Neck: non-tender, full range of motion, supple, normal inspection Cardiovascular: regular rate, rhythm, no murmur Respiratory: normal breath sounds Gastrointestinal: soft Neurologic/Psychiatric: recoater II-XII nml as tested, no motor/sensory deficits, alert, normal mood/affect, oriented x 3 Progress/Results/Core Measures Results/Orders My Orders Orders - TAVON PANDYA DO Ceftriaxone For Im Use (Rocephin For Im (10/30/19 23:00) Ketorolac Injection (Toradol Injection) (10/30/19 23:00) Amoxicillin/Clavulanate Tablet (Augmenti (10/30/19 23:00) Lidocaine 2% Viscous 15 Ml (Xylocaine Vi (10/30/19 23:00) Rx-Naproxen (Rx-Naprosyn) (10/30/19 22:56) Lidocaine 1% Inj 20 Ml (Xylocaine 1% Inj (10/30/19 23:00) Rx-Tramadol Hcl (Rx-Ultram) (10/30/19 23:00) Medications Given in ED Current Medications Medications Dose Ordered Sig/Key Route Start Time Stop Time Status Last Admin Dose Admin Ketorolac Tromethamine 60 mg ONCE ONCE IM 10/30/19 23:00 10/30/19 23:01 DC 10/30/19 23:10 60 MG Lidocaine HCl 2.1 ml ONCE ONCE INJ 10/30/19 23:00 10/30/19 23:01 DC 10/30/19 23:10 2.1 ML Lidocaine HCl 5 ml ONCE ONCE MM 10/30/19 23:00 10/30/19 23:01 DC 10/30/19 23:10 5 ML Vital Signs/I&O 10/30/19 10/30/19 22:34 23:40 Temp 36.1 36.1 Pulse 93 87 Resp 20 20 B/P (MAP) 192/121 (144) 168/118 (144) Pulse Ox 97 97 O2 Delivery Room Air Room Air Blood Pressure Mean: 144 Departure Impression Primary Impression: Infected dental caries Disposition: HOME, SELF-CARE Condition: Stable Departure-Patient Inst. Referrals: HERMILO MENSAH MD (PCP/Family) Primary Care Physician Patient Instructions: Tooth Decay, Adult (DC), Tooth Abscess (DC) Add. Discharge Instructions: FREQUENT WARM SALT WATER SWISHES FOLLOW UP WITH [facility] IN THE NEXT FEW DAYS FOR FURTHER CARE All discharge instructions reviewed with patient and/or family. Voiced understanding. Scripts Naproxen (Naproxen) 500 Mg Tablet.dr 500 MG PO BID, #20 TAB Prov: TAVON PANDYA DO 10/30/19 Lidocaine HCl (Lidocaine HCl Viscous) 15 Ml Solution 1-2 ML MM [id number], #120 ML Prov: TAVON PANDYA DO 10/30/19 Amoxicillin/Potassium Clav (Augmentin 875-125 Tablet) 1 Each Tablet 1 EACH PO BID for 10 Days, #20 TAB Prov: TAVON PANDYA DO 10/30/19 TAVON PANDYA DO Oct 30, 2019 22:48
[2019-10-30] MEDS ORDERED: RX-NAPROXEN (NAPROSYN) 250 MG TAB PPK#4 PO STA (22:56)
[2019-10-30] MEDS ORDERED: AUGMENTIN 875 MG TAB (AMOXICILLIN/CLAVULANATE) PO SCH (23:00)
[2019-10-30] MEDS ORDERED: NAPR500T8 PO (23:00)
[2019-10-30] MEDS ORDERED: RX-TRAMADOL 50 MG (ULTRAM) TAB PPK#4 PO STA (23:00)
[2019-10-30] MEDS ORDERED: AMOX-358 PO (23:00)
[2019-10-30] MEDS ORDERED: cefTRIAXone 1,000 MG/2.86 ml vial (IM ONLY) IM SCH (23:00)
[2019-10-30] MEDS ORDERED: LIDOCAINE 1% INJ 20 ML 20 ML VIAL INJ ONE (23:00)
[2019-10-30] MEDS ORDERED: LIDOCAINE 2% VISCOUS 15 ML UDC MM ONE (23:00)
[2019-10-30] MEDS ORDERED: LIDO20SO23 MM (23:00)
[2019-10-30] MEDS ORDERED: KETOROLAC 60 MG/2 ML VIAL IM ONE (23:00)
[2019-10-30 23:40] VITALS: BP 168/118
== END 2019-10-30 23:40 | disposition home or self-care (01) ==
LOC: EDUNIT# 22:20 → ER 22:22
DX: K02.9 Dental caries, unspecified (principal); I10 Essential (primary) hypertension; E66.9 Obesity, unspecified; F17.210 Nicotine dependence, cigarettes, uncomplicated; Z68.38 Body mass index [BMI] 38.0-38.9, adult; Z80.1 Family history of malignant neoplasm of trachea, bronchus and lung; Z88.5 Allergy status to narcotic agent; Z88.8 Allergy status to other drugs, medicaments and biological substances
CPT/HCPCS: 99284

== ENCOUNTER → 2020-01-22 | Outpatient (CLI) | payer MEDICAID ==
[~2020-01-22] MED LIST changes: +AMOX-358 PO; +LIDO20SO23 MM; +NAPR500T8 PO
--- NOTE | 2020-01-22 12:15 | Diagnostic Imaging Report ---
INDICATION: Hypertension with new diagnosis diabetes mellitus. TECHNIQUE: Multiple real-time grayscale sonographic images, color and duplex Doppler images were obtained of the urinary system. FINDINGS: Aortic velocity: 89 cm/sec. RIGHT kidney: Size: 4.9 x 6.0 x 6.0 cm The right renal parenchyma is slightly thinned. The collecting system appear unremarkable. The right renal artery is visualized in its mid and distal aspect. Maximum renal artery velocity: 78cm/sec Maximum renal artery/aortic ratio: 0.88 LEFT kidney: Size: 11.3 x 4.8 x 6.7 cm The left renal parenchyma and collecting system appear unremarkable. The left renal artery is visualized in its mid and distal aspect. Maximum renal artery velocity: 139cm/sec Maximum renal artery/aortic ratio: 1.6 Bladder: Not imaged. IMPRESSION: 1. Unremarkable renal ultrasound with doppler. (RA/AO ratios > 3.0 may suggest potential hemodynamically significant stenosis.) Dictated by: Dictated on workstation # [id number]
== END ==
LOC: RAD 09:00
PROVIDERS: ATTEND Family Medicine
DX: I10 Essential (primary) hypertension (principal); E11.9 Type 2 diabetes mellitus without complications
CPT/HCPCS: 76770; 76775; 93975; 93976

== ENCOUNTER 2020-02-24 14:48 | Emergency (ER) | payer MEDICAID ==
[~2020-02-24] VITALS: Ht 175.3 cm; Wt 124.3 kg
--- NOTE | 2020-02-24 15:30 | ED GU-Female ---
General Chief Complaint: Female Reproductive Stated Complaint: POSTIVE TEST, BLEEDING, CRAMPING Nursing Triage Note: PT AMBULATE TO ROOM FT1 WITH C/O VAGINAL BLEEDING AND CRAMPING. PT REPORTS TAKING A HOME TEST TODAY WHICH WAS POSITIVE. PT REPORTS SHE THINKS SHE IS ON HER MENSTRUAL PERIOD CURRENTLY. PT REPORTS HAVING MULTIPLE POS HOME PREG TESTS IN THE LAST MONTH AND A NEGATIVE BLOOD TEST X1 MONTH AGO WITH PER PCP. PT STATES THAT HER PCP CONTINUALLY TELLS HER THAT SHE IS NOT AND SHE "JUST WANTS TO KNOW WHAT IS GOING ON". Nursing Sepsis Screen: No Definite Risk Source: patient (BARBARA RAMIREZ MED STUDENT) History of Present Illness Date Seen by Provider: Feb 24, 2020 Time Seen by Provider: 03:20 Initial Comments 24 y/o F LMP in Jan that was late. Pt had cramping pain and vaginal bleeding that started 5d ago. Pt reports soaking super pads every hour for a couple of days and then recently soaking pads every couple of hours. She has N/V. Pt denies F. Pt states she had an in-house blood test on Jan 28 that was negative. Pt reports taking several at home tests between LMP and this morning that showed positive . Timing/Duration: week Severity/Quality: cramping Location: RLQ, LLQ, vaginal (BARBARA RAMIREZ MED STUDENT) Time Seen by Provider: 15:09 (ELFEGO ORTIZ MD) Allergies and Home Medications Allergies Coded Allergies: lisinopril (Verified Allergy, Mild, 07/23/19) hydrocodone (Verified Allergy, Unknown, 07/23/19) strawberry (Verified Allergy, Unknown, 07/23/19) Home Medications Amoxicillin/Potassium Clav 1 Each Tablet, 1 EACH PO BID Prescribed by: TAVON PANDYA on 10/30/19 2300 Cephalexin 500 Mg Capsule, 500 MG PO TID Prescribed by: ELFEGO ZARATE on 02/24/20 1632 Docusate Sodium 100 Mg Capsule, 100 MG PO BID Prescribed by: NAOMIE CALIX on 07/31/19 0755 Ibuprofen 800 Mg Tablet, 800 MG PO Q6H PRN for PAIN Prescribed by: NAOMIE CALIX on 07/31/19 0755 Labetalol HCl 200 Mg Tablet, 200 MG PO BID Prescribed by: NAOMIE CALIX on 07/31/19 075 Lidocaine HCl 15 Ml Solution, 1-2 ML MM [id number] Prescribed by: TAVON PANDYA on 10/30/192299 Naproxen 500 Mg Tablet.dr, 500 MG PO BID Prescribed by: TAVON PANDYA on 10/30/192299 Oxycodone HCl/Acetaminophen 1 Each Tablet, 1 TAB PO Q4H PRN for PAIN-MODERATE Prescribed by: NAOMIE CALIX on 07/31/19 075 Patient Home Medication List Home Medication List Reviewed: Yes (ELFEGO ORTIZ MD) Review of Systems Review of Systems Constitutional: No chills, No dizziness, No fever Respiratory: No cough Cardiovascular: No chest pain Gastrointestinal: abdominal pain (BARBARA RAMIREZ STUDENT) Musculoskeletal: no symptoms reported Skin: no symptoms reported Psychiatric/Neurological: No Symptoms Reported (ELFEGO ORTIZ MD) Past Lvphjeo-Shrdev-Ckyscy Hx Past Med/Social Hx: Reviewed Nursing Past Med/Soc Hx (ELFEGO ORTIZ MD) Patient Social History Alcohol Use: Rarely Uses Recreational Drug Use: No Smoking Status: Current Everyday Smoker Type Used: Cigarettes 2nd Hand Smoke Exposure: Yes Recent Foreign Travel: No Contact w/Someone Who Travel: No Recent Infectious Disease Expo: No Recent Hopitalizations: Yes (JUNE 2019-) Physical Abuse: No Sexual Abuse: No Mistreated: No Fear: No (BARBARA RAMIREZ) Immunizations Up To Date PED Vaccines UTD: Yes (BARBARA RAMIREZ) Seasonal Allergies Seasonal Allergies: No (BARBARA RAMIREZ) Past Medical History Surgeries: Yes (LITHOTRIPSY, URETERAL STENT; WISDOM TEETH PULLED) Renal, Tonsillectomy Respiratory: No Currently Using CPAP: No Currently Using BIPAP: No Cardiac: Yes Hypertension Neurological: No Reproductive Disorders: No Female Reproductive Disorders: Denies Sexually Transmitted Disease: No HIV/AIDS: No Genitourinary: Yes Kidney Stones Gastrointestinal: No Musculoskeletal: No Endocrine: Yes (GESTATIONAL DIABETES) HEENT: Yes (DENTAL CARIES) Loss of Vision: Denies Hearing Impairment: Denies Cancer: No Psychosocial: No Integumentary: No Blood Disorders: No Adverse Reaction/Blood Tranf: No (HAS HAD BLOOD WITH NO REACTION) (BARBARA RAMIREZ [employer] STUDENT) Family Medical History Autism G8 BROTHER Diabetes mellitus 19 FATHER FH: throat cancer 19 FATHER Hypertension 19 FATHER 19 MOTHER G8 BROTHER No Pertinent Family Hx (BARBARA RAMIREZ [email or web address] STUDENT) Physical Exam Vital Signs Vital Signs - First Documented 02/24/20 02/24/20 15:03 16:35 Temp 36.6 Pulse 106 Resp 17 B/P (MAP) 182/128 (146) Pulse Ox 97 O2 Delivery Room Air (ELFEGO ORTIZ MD) Vital Signs Capillary Refill : Less Than 3 Seconds (BARBARA RAMIREZ [employer] STUDENT) Height, Weight, BMI Height: 5'9.00" Weight: 254lbs. 2.0oz. [id number]; 40.00 BMI Method:Stated HEENT: PERRL/EOMI Cardiovascular: regular rate, rhythm Respiratory: chest non-tender, lungs clear, normal breath sounds Gastrointestinal: tenderness Extremities: No no pedal edema, No no calf tenderness Neurologic/Psychiatric: alert, normal mood/affect, oriented x 3 Skin: normal color (BARBARA RAMIREZ [employer] STUDENT) General Appearance: WD/WN, no apparent distress HEENT: normal ENT inspection Cardiovascular: no murmur Gastrointestinal: normal bowel sounds, soft; No distended Skin: warm/dry (ELFEGO ORTIZ MD) Progress/Results/Core Measures Suspected Sepsis Recent Fever Within 48 Hours: No Infection Criteria Present: None New/Unexplained Altered Menta: No Sepsis Screen: No Definite Risk SIRS Temperature: Pulse: 106 Respiratory Rate: 17 Blood Pressure 182 /128 Mean: 146 (BARBARA RAMIREZ [employer] STUDENT) Results/Orders Lab Results Laboratory Tests Test 02/24/20 15:20 02/24/20 15:31 Range/Units Urine Color YELLOW Urine Clarity SL CLOUDY Urine pH 5.5 5-9 Urine Specific [place] 1.025 H 1.016-1.022 Urine Protein TRACE H NEGATIVE Urine Glucose (UA) NEGATIVE NEGATIVE Urine Ketones NEGATIVE NEGATIVE Urine Nitrite POSITIVE H NEGATIVE Urine Bilirubin NEGATIVE NEGATIVE Urine Urobilinogen 0.2 < = 1.0 MG/DL Urine Leukocyte Esterase 1+ H NEGATIVE Urine RBC (Auto) 3+ H NEGATIVE Urine RBC RARE /HPF Urine WBC 50-100 H /HPF Urine Squamous Epithelial Cells 0-2 /HPF Urine Crystals NONE /LPF Urine Bacteria FEW H /HPF Urine Casts NONE /LPF Urine Mucus NEGATIVE /LPF Urine Culture Indicated YES White Blood Count 9.2 4.3-11.0 10^3/uL Red Blood Count 4.60 3.80-5.11 10^6/uL Hemoglobin 14.0 11.5-16.0 g/dL Hematocrit 42 35-52 % Mean Corpuscular Volume 91 80-99 fL Mean Corpuscular Hemoglobin 30 25-34 pg Mean Corpuscular Hemoglobin Concent 34 32-36 g/dL Red Cell Distribution Width 13.8 10.0-14.5 % Platelet Count 226 130-400 10^3/uL Mean Platelet Volume 11.1 9.0-12.2 fL Immature Granulocyte % (Auto) 1 % Neutrophils (%) (Auto) 63 42-75 % Lymphocytes (%) (Auto) 27 12-44 % Monocytes (%) (Auto) 7 0-12 % Eosinophils (%) (Auto) 2 0-10 % Basophils (%) (Auto) 1 0-10 % Neutrophils # (Auto) 5.8 1.8-7.8 10^3/uL Lymphocytes # (Auto) 2.5 1.0-4.0 10^3/uL Monocytes # (Auto) 0.6 0.0-1.0 10^3/uL Eosinophils # (Auto) 0.2 0.0-0.3 10^3/uL Basophils # (Auto) 0.1 0.0-0.1 10^3/uL Immature Granulocyte # (Auto) 0.1 0.0-0.1 10^3/uL Human Chorionic Gonadotropin, Quant 11 H <5 MIU/ML Serum Test, Qualitative POSITIVE NEGATIVE (ELFEGO ORTIZ MD) My Orders Orders - ELFEGO ORTIZ MD Ed Iv/Invasive Line Start (02/24/20 15:18) Ceftriaxone For Iv Use (Rocephin For I (02/24/20 16:30) (ELFEGO ORTIZ MD) Medications Given in ED Current Medications Medications Dose Ordered Sig/Key Route Start Time Stop Time Status Last Admin Dose Admin Ceftriaxone Sodium 1000 mg/ Sterile Water 10 ml @ 200 mls/hr ONCE ONCE IV 02/24/20 16:30 02/24/20 16:32 DC 02/24/20 16:29 200 MLS/HR (ELFEGO ORTIZ MD) Vital Signs/I&O 02/24/20 02/24/20 15:03 16:35 Temp 36.6 Pulse 106 82 Resp 17 19 B/P (MAP) 182/128 (146) 169/89 Pulse Ox 97 O2 Delivery Room Air Room Air (ELFEGO ORTIZ MD) Vital Signs/I&O Capillary Refill : Less Than 3 Seconds (BARBARA RAMIREZ MED STUDENT) Blood Pressure Mean: 146 Progress Note : Progress Note vaginal bleeding - test w/ urine and blood sample. (BARBARA RAMIREZ STUDENT) Departure Impression Primary Impression: Urinary tract infection Qualified Codes: N39.0 - Urinary tract infection, site not specified Additional Impressions: Pelvic pain Bleeding in early 33 weeks gestation of Disposition: HOME, SELF-CARE Condition: Stable Departure-Patient Inst. Decision time for Depature: 16:30 (ELFEGO ORTIZ MD) Referrals: HERMILO MENSAH MD (PCP/Family) Primary Care Physician Patient Instructions: Urinary Tract Infections in Adults Add. Discharge Instructions: You may take Tylenol (acetaminophen) up to 1000 mg every 6 hours as needed for pain. [facility]-up at the [facility] clinic tomorrow for a repeat hCG hormone level. This will help us understand whether you have a developing or a failed . Complete your antibiotics as prescribed. Drink plenty of clear liquids. Call or return to care if you have any further questions or concerns. All discharge instructions reviewed with patient and/or family. Voiced understanding. Scripts Cephalexin (Keflex) 500 Mg Capsule 500 MG PO TID, #20 CAP Prov: ELFEGO ORTIZ MD 02/24/20 Medical student attestation and attending note I have personally seen and examined this patient along with Barbara Ramirez, MS 3. I have reviewed her documentation and agree with her history, physical, assessments, and documentation except where otherwise noted. This 24-year-old young lady presents to the emergency room with complaints of pelvic pain and cramping. She reports having multiple positive urine test at home in January. She reports then following up with the clinic and having a negative serum and urine hCG in the clinic on January 28. She then had multiple positive urine test at home again after that. She is presently bleeding and reports a positive urine test this morning. She has had nausea and vomiting throughout the last 2 months consistent with symptoms by her interpretation. Exam: General: Alert, oriented, obese, no acute distress HEENT: Normocephalic and atraumatic Heart: Regular rate and rhythm without murmur Lungs: Clear to auscultation bilaterally with normal effort Abdomen: Soft, tenderness in the pelvic region, nondistended Neuropsych: Alert, oriented, no focal deficits Skin: Warm and dry Work-up revealed an hCG level of 11. This was discussed with Dr. Mensah. Rather than perform an ultrasound at this point which will not likely show a gestation of any kind, we will repeat an hCG level tomorrow in the clinic. Dr. Mensah will arrange orders for this. See discharge instructions. Patient was treated for urinary tract infection. She denied risk factors for STI or history of pelvic infections. Patient is Rh- based on prior labs. With such a low hCG level, there may not be a significant benefit of a RhoGam injection. I will leave this determination to the [facility] team. Dr. Mensah indicated she would discuss this and offer RhoGam when patient follows up for her hCG level. (ELFEGO ORTIZ MD) Copy Copies To 1: HERMILO MENSAH MD, ELIZABETH X MED STUDENT Feb 24, 2020 15:30 ELFEGO ORTIZ MD Feb 24, 2020 16:32
[2020-02-24 15:41] LABS: BILIRUBIN,URINE NEGATIVE (NEGATIVE); COLOR,URINE YELLOW; GLUCOSE, URINE (UA) NEGATIVE (NEGATIVE); KETONES,URINE NEGATIVE (NEGATIVE); LEUKOCYTE ESTERASE ,URINE 1+ (NEGATIVE); NITRITE,URINE POSITIVE (NEGATIVE); PH,URINE 5.5 (5-9); PROTEIN,URINE TRACE (NEGATIVE)
[2020-02-24 15:44] LABS: BASOPHILS # (AUTO) 0.1 10^3/uL (0.0-0.1); BASOPHILS % (AUTO) 1 % (0-10); EOSINOPHILS # (AUTO) 0.2 10^3/uL (0.0-0.3); EOSINOPHILS % (AUTO) 2 % (0-10); HEMATOCRIT 42 % (35-52); LYMPHOCYTES # (AUTO) 2.5 10^3/uL (1.0-4.0); LYMPHOCYTES % (AUTO) 27 % (12-44); MEAN CORPUSCULAR HEMOGLOBIN 30 pg (25-34); MEAN CORPUSCULAR HGB CONC 34 g/dL (32-36); MEAN CORPUSCULAR VOLUME 91 fL (80-99); MEAN PLATELET VOLUME 11.1 fL (9.0-12.2); MONOCYTES # (AUTO) 0.6 10^3/uL (0.0-1.0); MONOCYTES % (AUTO) 7 % (0-12); NEUTROPHILS # (AUTO) 5.8 10^3/uL (1.8-7.8); NEUTROPHILS % (AUTO) 63 % (42-75); PLATELET COUNT 226 10^3/uL (130-400); WHITE BLOOD COUNT 9.2 10^3/uL (4.3-11.0)
[2020-02-24 15:51] LABS: CLARITY,URINE SL CLOUDY
[2020-02-24 15:52] LABS: BACTERIA,URINE FEW /HPF; RBC,URINE RARE /HPF; SQUAMOUS EPITHELIAL CELL,UR 0-2 /HPF; WBC,URINE 50-100 /HPF
[2020-02-24] MEDS ORDERED: cefTRIAXone FOR IV USE 1,000 MG in WATER (STERILE) FOR INJECTION 10 ML IV ONE (16:30)
[2020-02-24] MEDS ORDERED: CEPH-507 PO (16:32)
[2020-02-24 16:35] VITALS: BP 169/89
== END 2020-02-24 16:35 | disposition home or self-care (01) ==
LOC: EDUNIT# 14:48 → ER 14:53
DX: O20.9 Hemorrhage in early pregnancy, unspecified (principal); O23.43 Unspecified infection of urinary tract in pregnancy, third trimester; O10.913 Unspecified pre-existing hypertension complicating pregnancy, third trimester; O24.419 Gestational diabetes mellitus in pregnancy, unspecified control; O99.333 Smoking (tobacco) complicating pregnancy, third trimester; F17.210 Nicotine dependence, cigarettes, uncomplicated; Z87.442 Personal history of urinary calculi; Z88.5 Allergy status to narcotic agent; Z88.8 Allergy status to other drugs, medicaments and biological substances; Z96.0 Presence of urogenital implants; Z80.2 Family history of malignant neoplasm of other respiratory and intrathoracic organs; Z3A.33 33 weeks gestation of pregnancy
CPT/HCPCS: 36415; 81000; 84702; 84703; 85025; 87077; 87088; 87186

== ENCOUNTER 2020-03-01 15:56 | Emergency (ER) | payer MEDICAID ==
[~2020-03-01] VITALS: Ht 177.8 cm; Wt 124.5 kg
--- NOTE | 2020-03-01 16:22 | NUR ---
LAB HERE MIKHAIL DRAW BLOOD
--- NOTE | 2020-03-01 16:32 | ED Abdominal Pain ---
General Chief Complaint: OB < 20 WEEKS Stated Complaint: VAGINAL BLEEDING, Nursing Triage Note: TO ED PER EMS REPORTS IS PREG LMP DEC . WAS SEEN ON FEB 23 FOR VAG BLEEDING REPORTS THAT BLEEDING AND CRAMPING BACK TODAY. IS SUPPOSE TO ALSO BE STARTED ON B/P MEDS BUT NOT YET STARED. Sepsis Screen: No Definite Risk Source of Information: Patient Exam Limitations: No Limitations (ALFONSO GIBBONS MED STUDENT) History of Present Illness Date Seen by Provider: Mar 01, 2020 Time Seen by Provider: 16:05 Initial Comments This 25 y/o F presents to the Emergency Department via EMS for a chief complaint of vaginal bleeding and cramps. The cramping began 5 hours ago in the left lower quadrant and she reports light vaginal bleeding for 30-45 minutes. She had nausea and vomited 3 hours ago. She denies another symptoms. Her blood pressure in the room is189/134 which she states is normal for her hypertension. LMP was near the end of January 2020. She previous came into the Emergency Department on February 23 for vaginal bleeding and her HCG was 11. She was diagnosed with a UTI and given antibiotics. She followed up with Dr. Mensah on the , was given Rhogam, and her HCG levels adrienne. She had an appointment set up next week to determine a gestational age. She has a history of 7 miscarriages and previous occurrences of vaginal bleeding during . Medications: vitamins, antibiotics allergies to meds: lisinopril (lightheadedness) PMHx: hypertension, gestational diabetes, kidney stones PSHx: c-sections, laser surgery on kidneys, stent in kidney d/t E. Coli infection, tonsil removals, wisdom teeth removal FamHx: throat cancer (dad), hypertension (mom), lung cancer (grandma), dementia (grandma) (ALFONSO GIBBONS MED STUDENT) Initial Comments Patient reports previous hypertension treated with Labetolol after her last delivery. She intends to restart treatment at her next appointment. She has an US scheduled at the clinic tomorrow. She came to the ER today because of increased pain, mainly in the LLQ. She denies urinary symptoms, vaginal discharge, pain with intercourse, or prior vaginal infections. Denies c onstipation or diarrhea. She reports her LLQ pain is not new to this . She received a RhoGam injection at the clinic after her previous ER visit. (ELFEGO ORTIZ MD) Allergies and Home Medications Allergies Coded Allergies: lisinopril (Verified Allergy, Mild, 07/23/19) hydrocodone (Verified Allergy, Unknown, 07/23/19) strawberry (Verified Allergy, Unknown, 07/23/19) Home Medications Amoxicillin/Potassium Clav 1 Each Tablet, 1 EACH PO BID Prescribed by: TAVON PANDYA on 10/30/19 2300 Cephalexin 500 Mg Capsule, 500 MG PO TID Prescribed by: ELFEGO ZARATE on 02/24/20 1632 Docusate Sodium 100 Mg Capsule, 100 MG PO BID Prescribed by: NAOMIE CALIX on 07/31/19 0755 Ibuprofen 800 Mg Tablet, 800 MG PO Q6H PRN for PAIN Prescribed by: NAOMIE CALIX on 07/31/19 0755 Labetalol HCl 200 Mg Tablet, 200 MG PO BID Prescribed by: NAOMIE CALIX on 07/31/19 0755 Labetalol HCl 200 Mg Tablet, 200 MG PO BID Prescribed by: ELFEGO ZARATE on 03/01/20 1804 Lidocaine HCl 15 Ml Solution, 1-2 ML MM [id number] Prescribed by: TAVON PANDYA on 10/30/19 2300 Naproxen 500 Mg Tablet.dr, 500 MG PO BID Prescribed by: TAVON PANDYA on 10/30/19 2300 Oxycodone HCl/Acetaminophen 1 Each Tablet, 1 TAB PO Q4H PRN for PAIN-MODERATE Prescribed by: NAOMIE CALIX on 07/31/19 0755 Patient Home Medication List Home Medication List Reviewed: Yes (ELFEGO ORTIZ MD) Review of Systems Review of Systems Gastrointestinal: Abdominal Pain, Vomiting Genitourinary: Other (vaginal bleeding, cramping) (ALFONSO GIBBONS MED STUDENT) Constitutional: no symptoms reported EENTM: No Symptoms Reported Respiratory: No Symptoms Reported Cardiovascular: See HPI Genitourinary: See HPI Musculoskeletal: no symptoms reported Skin: no symptoms reported Psychiatric/Neurological: No Symptoms Reported (ELFEGO ORTIZ MD) Past Prqamja-Oaczem-Zqoayp Hx Past Med/Social Hx: Reviewed Nursing Past Med/Soc Hx (ELFEGO ORTIZ MD) Patient Social History Alcohol Use: Denies Use Recreational Drug Use: No Smoking Status: Current Everyday Smoker Type Used: Cigarettes 2nd Hand Smoke Exposure: Yes Recent Foreign Travel: No Contact w/Someone Who Travel: No Recent Infectious Disease Expo: No Recent Hopitalizations: Yes (JUNE 2019-) (ALFONSO GIBBONS) Immunizations Up To Date PED Vaccines UTD: Yes (ALFONSO GIBBONS) Seasonal Allergies Seasonal Allergies: No (ALFONSO GIBBONS) Past Medical History Surgeries: Yes (LITHOTRIPSY, URETERAL STENT; WISDOM TEETH PULLED) Renal, Tonsillectomy Respiratory: No Currently Using CPAP: No Currently Using BIPAP: No Cardiac: Yes Hypertension Neurological: No : Yes Last Menstrual Period: Jan 21, 2020 Hx : 8 Hx Para: 2 Reproductive Disorders: No Female Reproductive Disorders: Denies Sexually Transmitted Disease: No HIV/AIDS: No Genitourinary: Yes Kidney Stones Gastrointestinal: No Musculoskeletal: No Endocrine: Yes (GESTATIONAL DIABETES) HEENT: Yes (DENTAL CARIES) Loss of Vision: Denies Hearing Impairment: Denies Cancer: No Psychosocial: No Integumentary: No Blood Disorders: No Adverse Reaction/Blood Tranf: No (HAS HAD BLOOD WITH NO REACTION) (ALFONSO GIBBONS) Section (ELFEGO ORTIZ MD) Family Medical History Autism G8 BROTHER Diabetes mellitus 19 FATHER FH: throat cancer 19 FATHER Hypertension 19 FATHER 19 MOTHER G8 BROTHER No Pertinent Family Hx (ALFONSO GIBBONS) Physical Exam Vital Signs Vital Signs - First Documented 03/01/20 15:56 Temp 36.5 Pulse 96 Resp 18 B/P (MAP) 189/134 (152) Pulse Ox 97 O2 Delivery Room Air (ELFEGO ORTIZ MD) Vital Signs Capillary Refill : Less Than 3 Seconds (ALFONSO GIBBONS) Height/Weight/BMI Height: 5'9.00" Weight: 254lbs. 2.0oz. 115.215663tk; 39.00 BMI Method:Stated General Appearance: moderate distress (crying) Respiratory: chest non-tender, lungs clear, normal breath sounds, no respiratory distress, no accessory muscle use Cardiovascular: regular rate, rhythm Gastrointestinal: soft, tenderness (LLQ tenderness) Neurologic/Psychiatric: alert, oriented x 3 Skin: normal color, warm/dry (ALFONSO GIBBONS MED STUDENT) General Appearance: WD/WN, no apparent distress, obese HEENT: PERRL/EOMI, normal ENT inspection Neck: normal inspection Cardiovascular: no edema Gastrointestinal: tenderness (LLQ tenderness) Extremities: normal inspection, no pedal edema Neurologic/Psychiatric: no motor/sensory deficits, normal mood/affect (ELFEGO ORTIZ MD) Progress/Results/Core Measures Results/Orders Lab Results Laboratory Tests Test 03/01/20 16:29 03/01/20 17:15 Range/Units White Blood Count 9.7 4.3-11.0 10^3/uL Red Blood Count 4.86 3.80-5.11 10^6/uL Hemoglobin 14.5 11.5-16.0 g/dL Hematocrit 44 35-52 % Mean Corpuscular Volume 91 80-99 fL Mean Corpuscular Hemoglobin 30 25-34 pg Mean Corpuscular Hemoglobin Concent 33 32-36 g/dL Red Cell Distribution Width 13.8 10.0-14.5 % Platelet Count 223 130-400 10^3/uL Mean Platelet Volume 11.1 9.0-12.2 fL Immature Granulocyte % (Auto) 1 % Neutrophils (%) (Auto) 65 42-75 % Lymphocytes (%) (Auto) 26 12-44 % Monocytes (%) (Auto) 6 0-12 % Eosinophils (%) (Auto) 2 0-10 % Basophils (%) (Auto) 1 0-10 % Neutrophils # (Auto) 6.3 1.8-7.8 10^3/uL Lymphocytes # (Auto) 2.5 1.0-4.0 10^3/uL Monocytes # (Auto) 0.6 0.0-1.0 10^3/uL Eosinophils # (Auto) 0.2 0.0-0.3 10^3/uL Basophils # (Auto) 0.1 0.0-0.1 10^3/uL Immature Granulocyte # (Auto) 0.1 0.0-0.1 10^3/uL Human Chorionic Gonadotropin, Quant 114 H <5 MIU/ML Urine Color YELLOW Urine Clarity CLEAR Urine pH 5.5 5-9 Urine Specific [place] 1.025 H 1.016-1.022 Urine Protein NEGATIVE NEGATIVE Urine Glucose (UA) NEGATIVE NEGATIVE Urine Ketones NEGATIVE NEGATIVE Urine Nitrite NEGATIVE NEGATIVE Urine Bilirubin NEGATIVE NEGATIVE Urine Urobilinogen 0.2 < = 1.0 MG/DL Urine Leukocyte Esterase NEGATIVE NEGATIVE Urine RBC (Auto) NEGATIVE NEGATIVE Urine RBC NONE /HPF Urine WBC NONE /HPF Urine Crystals NONE /LPF Urine Bacteria TRACE /HPF Urine Casts NONE /LPF Urine Mucus NEGATIVE /LPF Urine Culture Indicated NO (ELFEGO ORTIZ MD) My Orders Orders - ELFEGO ORTIZ MD Cbc With Automated Diff (03/01/20 16:16) Hcg,Quantitative (03/01/20 16:16) Ua Culture If Indicated (03/01/20 16:16) Labetalol Tablet (Normodyne Tablet) (03/01/20 18:00) (ELFEGO ORTIZ MD) Vital Signs/I&O 03/01/20 03/01/20 03/01/20 15:56 17:10 18:14 Temp 36.5 Pulse 96 83 89 Resp 18 18 18 B/P (MAP) 189/134 (152) 147/95 (112) 164/99 Pulse Ox 97 98 97 O2 Delivery Room Air Room Air (ELFEGO ORTIZ MD) Blood Pressure Mean: 152 Progress Progress Note : Time: 04:15 Progress Note - UA, CBC, HCG were ordered, results pending. possible ultrasound. (ALFONSO GIBBONS MED STUDENT) Progress Note : Progress Note Labs were unremarkable except for a very slow increase in HCG levels to 114 today. Pain has already improved without any treatment. She should follow through with the US tomorrow. BP was treated with Labetolol and an Rx was provided. See discharge instructions for patient discussion. (ELFEGO ORTIZ MD) Departure Impression Primary Impression: Abdominal cramping affecting Additional Impression: Essential hypertension Disposition: 01 HOME, SELF-CARE Condition: Improved Departure-Patient Inst. Referrals: HERMILO MENSAH MD (PCP/Family) Primary Care Physician Patient Instructions: Abdominal Pain, Adult ED, High Blood Pressure (DC) Add. Discharge Instructions: Drink plenty of water. For pain you may take Tylenol (acetaminophen) up to 1000 mg every 6 hours as needed. Adding Benadryl (diphenhydramine) up to 50 mg every 6 hours as needed may also help with cramping. Complete your antibiotics as previously prescribed. Obtain your ultrasound tomorrow as ordered. Start labetalol as prescribed and to discuss further blood pressure management with your obstetrical provider soon as possible. Call or return to care if you have any further problems or concerns. All discharge instructions reviewed with patient and/or family. Voiced understanding. Scripts Labetalol HCl (Labetalol HCl) 200 Mg Tablet 200 MG PO BID, #30 TAB Prov: ELFEGO ORTIZ MD 03/01/20 Copy Copies To 1: HERMILO MENSAH MD, ELIZABETH X MED STUDENT Mar 01, 2020 16:32 ELFEGO ORTIZ MD Mar 01, 2020 17:39
[2020-03-01 16:38] LABS: BASOPHILS # (AUTO) 0.1 10^3/uL (0.0-0.1); BASOPHILS % (AUTO) 1 % (0-10); EOSINOPHILS # (AUTO) 0.2 10^3/uL (0.0-0.3); EOSINOPHILS % (AUTO) 2 % (0-10); HEMATOCRIT 44 % (35-52); HEMOGLOBIN 14.5 g/dL (11.5-16.0); LYMPHOCYTES # (AUTO) 2.5 10^3/uL (1.0-4.0); LYMPHOCYTES % (AUTO) 26 % (12-44); MEAN CORPUSCULAR HEMOGLOBIN 30 pg (25-34); MEAN CORPUSCULAR HGB CONC 33 g/dL (32-36); MEAN CORPUSCULAR VOLUME 91 fL (80-99); MEAN PLATELET VOLUME 11.1 fL (9.0-12.2); MONOCYTES # (AUTO) 0.6 10^3/uL (0.0-1.0); MONOCYTES % (AUTO) 6 % (0-12); NEUTROPHILS # (AUTO) 6.3 10^3/uL (1.8-7.8); NEUTROPHILS % (AUTO) 65 % (42-75); PLATELET COUNT 223 10^3/uL (130-400); WHITE BLOOD COUNT 9.7 10^3/uL (4.3-11.0)
--- NOTE | 2020-03-01 17:14 | NUR ---
MOTHER CALLED TO CHECK ON DAUGHTER INFORMED HER I WOULD HAVE TO CHECK IF IT IS OK IF I TALK WITH HER. BECAME UPSET.
[2020-03-01 17:22] LABS: BILIRUBIN,URINE NEGATIVE (NEGATIVE); CLARITY,URINE CLEAR; COLOR,URINE YELLOW; GLUCOSE, URINE (UA) NEGATIVE (NEGATIVE); KETONES,URINE NEGATIVE (NEGATIVE); LEUKOCYTE ESTERASE ,URINE NEGATIVE (NEGATIVE); NITRITE,URINE NEGATIVE (NEGATIVE); PH,URINE 5.5 (5-9); PROTEIN,URINE NEGATIVE (NEGATIVE)
[2020-03-01 17:43] LABS: BACTERIA,URINE TRACE /HPF
--- NOTE | 2020-03-01 17:58 | NUR ---
ON DISCHARGE B/P ELEVATED DR MAXWELL NOTIFIED AND TO ROOM.
[2020-03-01] MEDS ORDERED: LABETALOL 200 MG (NORMODYNE) TAB PO ONE (18:00)
[2020-03-01] MEDS ORDERED: LABE200T7 PO (18:04)
[2020-03-01 18:14] VITALS: BP 164/99
== END 2020-03-01 18:14 | disposition home or self-care (01) ==
LOC: EDUNIT# 15:56 → ER 15:58
DX: O26.899 Other specified pregnancy related conditions, unspecified trimester (principal); R10.32 Left lower quadrant pain; O13.9 Gestational [pregnancy-induced] hypertension without significant proteinuria, unspecified trimester; O46.90 Antepartum hemorrhage, unspecified, unspecified trimester; O99.330 Smoking (tobacco) complicating pregnancy, unspecified trimester; F17.210 Nicotine dependence, cigarettes, uncomplicated; Z80.8 Family history of malignant neoplasm of other organs or systems; Z88.8 Allergy status to other drugs, medicaments and biological substances; Z88.5 Allergy status to narcotic agent; Z3A.00 Weeks of gestation of pregnancy not specified
CPT/HCPCS: 36415; 81000; 84702; 85025; 99283

== ENCOUNTER → 2020-04-21 | Outpatient (CLI) | payer MEDICAID | LOC: LABNPT 14:20 | PROVIDERS: ATTEND Obstetrics & Gynecology | DX: Z32.01 Encounter for pregnancy test, result positive (principal) | CPT/HCPCS: 84702 ==

== ENCOUNTER → 2020-11-26 | Outpatient (CLI) | payer MEDICAID | LOC: LABNPT 13:05 | PROVIDERS: ATTEND Obstetrics & Gynecology | DX: O14.93 Unspecified pre-eclampsia, third trimester (principal) | CPT/HCPCS: 82570; 84156 ==

== ENCOUNTER 2020-11-30 06:11 | Outpatient (CLI) | payer MEDICAID ==
[~2020-11-30] VITALS: Ht 177.8 cm; Wt 125.5 kg
[~2020-11-30 06:11] MED LIST changes: -LABE100T6 PO
[2020-11-30] MEDS ORDERED: LABE100T6 PO (15:39)
[2020-11-30] MEDS ORDERED: METF-397 PO (15:39)
== END 2020-11-30 15:47 | disposition home or self-care (01) ==
LOC: PREOP 06:11
PROVIDERS: ATTEND Obstetrics & Gynecology
DX: Z01.818 Encounter for other preprocedural examination (principal)

== ENCOUNTER → 2020-11-30 | Outpatient (CLI) | payer MEDICAID ==
[~2020-11-30] MED LIST changes: +LABE100T6 PO
== END ==
LOC: LABNPT 11:31
PROVIDERS: ATTEND Obstetrics & Gynecology
DX: O14.93 Unspecified pre-eclampsia, third trimester (principal)
CPT/HCPCS: 82570; 84156

== ENCOUNTER 2020-12-14 04:50 | Inpatient (IN) | payer MEDICAID ==
[~2020-12-14] VITALS: Ht 175.3 cm; Wt 126.1 kg
[2020-12-14] VITALS (14 sets, daily range): BP systolic 143–182; BP diastolic 79–111
[~2020-12-14 04:50] MED LIST changes: +LABE100T6 PO
[2020-12-14] MEDS ORDERED: CITRIC ACID/SOB CIT (BICITRA) 30 ML UDC PO ONE (05:00)
[2020-12-14] MEDS ORDERED: metroNIDAZOLE 500MG/100ML IVPB 100 ML IV ONE (05:00)
[2020-12-14] MEDS ORDERED: ceFAZolin 2 GM IV Premixed 50 ML IV ONE (05:00)
[2020-12-14] MEDS ORDERED: FAMOTIDINE 20MG/2ML IV (PEPCID) IV ONE (05:00)
[2020-12-14] MEDS ORDERED: LACTATED RINGERS 1,000 ML IV PRN ×2 (05:00)
[2020-12-14] MEDS ORDERED: METOCLOPRAMIDE INJ 10 MG/2 ML (REGLAN) IV ONE (05:00)
[2020-12-14 06:44] LABS: BASOPHILS % (AUTO) 0 % (0-10); EOSINOPHILS # (AUTO) 0.1 10^3/uL (0.0-0.3); EOSINOPHILS % (AUTO) 1 % (0-10); HEMATOCRIT 31 % (35-52); HEMOGLOBIN 10.3 g/dL (11.5-16.0); LYMPHOCYTES # (AUTO) 2.4 10^3/uL (1.0-4.0); LYMPHOCYTES % (AUTO) 22 % (12-44); MEAN CORPUSCULAR HEMOGLOBIN 30 pg (25-34); MEAN CORPUSCULAR HGB CONC 34 g/dL (32-36); MEAN CORPUSCULAR VOLUME 89 fL (80-99); MEAN PLATELET VOLUME 11.4 fL (9.0-12.2); MONOCYTES # (AUTO) 0.8 10^3/uL (0.0-1.0); MONOCYTES % (AUTO) 7 % (0-12); NEUTROPHILS # (AUTO) 7.8 10^3/uL (1.8-7.8); NEUTROPHILS % (AUTO) 70 % (42-75); PLATELET COUNT 217 10^3/uL (130-400); WHITE BLOOD COUNT 11.2 10^3/uL (4.3-11.0)
[2020-12-14] MEDS ORDERED: LABETALOL 200 MG (NORMODYNE) TAB PO ONE ×2 (06:45→07:00)
[2020-12-14] MEDS ORDERED: fentaNYL INJ 100 MCG/2 ML AMP ONE (07:05)
[2020-12-14] MEDS ORDERED: ONDANSETRON 4 MG/2 ML (SDV) Z0FRAN ONE (07:05)
[2020-12-14] MEDS ORDERED: OXYTOCIN PRE-MIX DRIP 1,000 ML IV ONE (07:05)
[2020-12-14] MEDS ORDERED: KETOROLAC 30 MG/ML VIAL ONE (07:05)
--- NOTE | 2020-12-14 07:10 | History & Physical ---
History and Physical Date Seen by Provider: Dec 14, 2020 Time Seen by Provider: 07:08 This patient is a 25-year-old currently at 37 weeks gestation. She is admitted now for repeat delivery at 37 weeks gestation. Her history is significant for severe PIH as well as gestational diabetes.She has seen physical therapy teacher doctor who agreesDelivery at 37 weeks.Patient denies rupture membranes or bleeding. She had no other problems with this . Allergies are to hydrocodone lisinopril and strawberries Medications are vitamins and labetalol Medical social and surgical history is are per the antepartum record HEENT exam is normal Neck is supple no lymphadenopathy no thyromegaly Abdomen is gravid soft nontender nondistended Extremities show no clubbing cyanosis. There is no Homans' sign. Pelvic exam is deferred Assessment and plan 37 weeks gestation admitted for repeat delivery due to severe PIH and gestational diabetes 37 weeks gestation admitted for repeat Allergies and Home Medications Allergies Coded Allergies: lisinopril (Verified Allergy, Mild, 07/23/19) hydrocodone (Verified Allergy, Unknown, 07/23/19) strawberry (Verified Allergy, Unknown, 07/23/19) Patient Home Medication List Home Medication List Reviewed: Yes Labetalol HCl (Labetalol HCl) 100 Mg Tablet, 100 MG PO BID, (Reported) Entered as Reported by: LEANA GARCÍA on 11/30/20 153 Metformin HCl (Metformin HCl) 500 Mg Tablet, 500 MG PO BID, (Reported) Entered as Reported by: LEANA GARCÍA on 11/30/20 1539 Vits #93/Iron Fum/FA ( Formula Tablet) 1 Each Tablet, 1 TAB PO DAILY, (Reported) Entered as Reported by: EJ VENEGAS on 02/09/17 1145 NAOMIE VIRAMONTES MD Dec 14, 2020 07:10
[2020-12-14] MEDS ORDERED: DOCU-143 PO (07:11)
[2020-12-14] MEDS ORDERED: OXYC1TAB12 PO (07:11)
[2020-12-14] MEDS ORDERED: IBUP-1780 PO (07:11)
--- NOTE | 2020-12-14 07:13 | Discharge Inst-Surgical ---
Discharge Inst-Surgical Depart Medication/Instructions New, Converted or Re-Newed RX: RX on Chart Consults/Follow Up Patient Instructions: As directed Orders & Referrals Follow Up Appt: RTC 1 week for incision check. Call to make follow up appt. for patient in 4 weeks. Wound Care: Remove twyla, apply benzoin and steri strips. Activity Per routine post instructions Diet as tolerated Patient may shower or tub bathe as desired. Continue home meds Activity Activity as Tolerated: No Diet Discharge Diet: No Restrictions NAOMIE VIRAMONTES MD Dec 14, 2020 07:12
[2020-12-14] MEDS ORDERED: BUPIVACAINE 0.25% 30 ML (SENSORCAINE) VIAL ONE (07:59)
[2020-12-14] MEDS ORDERED: ONDANSETRON 4 MG/2 ML (SDV) Z0FRAN IVP PRN (09:30)
[2020-12-14] MEDS ORDERED: OXYTOCIN PRE-MIX DRIP 500 ML IV SCH (09:30)
[2020-12-14] MEDS ORDERED: D5 LR IV SOLUTION 1,000 ML IV SCH (09:30)
[2020-12-14] MEDS ORDERED: fentaNYL INJ 100 MCG/2 ML AMP IVP PRN (09:30)
[2020-12-14] MEDS ORDERED: TETANUS,DIPTH,PERTUSS P/F (BOOSTRIX) 0.5 ML VIAL IM ONE (09:30)
[2020-12-14] MEDS ORDERED: MEASLES,MUMPS,RUBELLA 1 EA INJ SC ONE (09:30)
[2020-12-14] MEDS ORDERED: oxyCODONE/APAP 10/325MG (PERCOCET 10) TABLET PO PRN (09:30)
[2020-12-14] MEDS: oxyCODONE/APAP 10/325MG (PERCOCET 10) TABLET PO PRN ×3 (11:52→23:50)
--- NOTE | 2020-12-14 12:42 | OPERATIVE REPORT ---
DATE OF SERVICE: 12/14/2020 PREOPERATIVE DIAGNOSES: A 37-week with severe PIH and gestational diabetes and previous . POSTOPERATIVE DIAGNOSES: A 37-week with severe PIH and gestational diabetes and previous . OPERATIVE PROCEDURE: Repeat low transverse delivery of a viable female infant with Apgars of 8 and 9 at 1 and 5 minutes respectively, weight of 9 pounds 13 ounces. Cord blood gas of 7.25 and a time of 07:41. OPERATIVE DESCRIPTION: With the patient in supine position under satisfactory spinal analgesia, she was prepped and draped in the usual fashion for abdominal surgery after spinal anesthesia was placed. A Pfannenstiel incision was made through the skin with a scalpel, the patient's abdomen was entered in the usual manner. Bladder retractor was placed in position and a clean scalpel was used to make a 4 cm hysterotomy incision transversely across the lower uterine segment that was extended by blunt dissection as well. Copious clear fluid was released on hysterotomy. Kaplan forceps were applied to facilitate delivery of the vigorous viable female infant with Apgars and stats as noted above. The was bulb suctioned on delivery of the head and again on completion of delivery. The umbilical cord was doubly clamped and cut and the infant was passed to the pediatric nurse in attendance for delivery. Cord bloods were obtained. Placenta delivered spontaneously Ruffin. It was normal with a 3-vessel cord. The uterus was exteriorized and interior wiped clean with a wet laparotomy sponge. Uterine incision was closed with a running locked suture of 2-0 Vicryl. Hemostasis was complete. The uterus was returned to the abdominal cavity. All blood clot and debris removed from the abdominal cavity. The sponge and needle count was correct and hemostasis assured. The anterior parietal peritoneum was closed with a running suture of 2-0 Vicryl. The rectus muscles were closed with that suture as well. The rectus fascia was closed with 2-0 Vicryl, subcutaneous tissue was closed with 2-0 Vicryl and the skin was stapled. Sponge and needle counts were correct on completion of the procedure. Blood loss was around 1000 mL was the estimate, the patient had polyhydramnios, so the bulk of that likely would have been amniotic fluid. I would estimate that the blood loss was likely closer to 500. The patient tolerated the procedure well and was transferred to the recovery room in a stable condition. The infant remained at bedside with the pediatric nurse. Job ID: [id number] DocumentID: [id number] Dictated Date: 12/14/2020 08:18:32 Nascar Driver Date: 12/14/2020 12:42:26 Dictated By: NAOMIE VIRAMONTES MD
[2020-12-14] MEDS ORDERED: KETOROLAC 30 MG/ML VIAL IVP SCH (13:00)
[2020-12-14] MEDS ORDERED: KETOROLAC 30 MG/ML VIAL IVP PRN (14:00)
[2020-12-14] MEDS: KETOROLAC 30 MG/ML VIAL IVP SCH ×2 (17:51→22:55)
[2020-12-14] MEDS: DOCUSATE SODIUM 100 MG (COLACE) CAP PO SCH (19:54)
[2020-12-14] MEDS: LABETALOL 200 MG (NORMODYNE) TAB PO SCH (19:55)
[2020-12-14] MEDS ORDERED: DOCUSATE SODIUM 100 MG (COLACE) CAP PO SCH ×2 (21:00)
[2020-12-15 03:05] VITALS: BP 174/95
[2020-12-15] MEDS: KETOROLAC 30 MG/ML VIAL IVP SCH ×3 (05:03→19:54)
[2020-12-15] MEDS ORDERED: IBUPROFEN 800 MG (MOTRIN) TAB PO ONE (05:10)
[2020-12-15] MEDS: IBUPROFEN 800 MG (MOTRIN) TAB PO SCH ×4 (05:11→23:53)
[2020-12-15] MEDS ORDERED: IBUPROFEN 800 MG (MOTRIN) TAB PO SCH (06:00)
--- NOTE | 2020-12-15 07:44 | Progress Note ---
Standard Progress Note Progress Notes/Assess & Plan Date Seen by a Provider: Dec 15, 2020 Time Seen by a Provider: 07:43 Progress/Assessment & Plan This patient is without complaint. She is ambulating, voiding, tolerating oral intake well and has good pain control. Vital Signs Date Time Temp Pulse Resp B/P (MAP) Pulse Ox O2 Delivery O2 Flow Rate FiO2 12/15/20 03:05 36.5 83 18 174/95 (121) 97 Room Air 12/14/20 23:16 36.2 72 18 172/97 (122) 97 Room Air 12/14/20 20:58 62 160/87 (111) 12/14/20 19:46 35.7 96 16 182/97 (125) 95 Room Air 12/14/20 15:33 36.1 79 16 171/87 (115) 98 Room Air 12/14/20 12:12 Room Air 12/14/20 11:28 37.1 84 16 157/85 (109) 98 Room Air 12/14/20 09:15 36.3 71 16 167/91 (116) 98 Room Air 12/14/20 08:45 36.3 18 143/111 (122) 100 Room Air 12/14/20 08:44 Room Air 12/14/20 08:30 Room Air 12/14/20 08:30 36.4 18 150/92 (111) 100 Room Air 12/14/20 08:15 Room Air 12/14/20 08:15 36.3 18 144/90 (108) 100 Room Air 12/14/20 08:05 36.8 18 146/93 (110) 99 Room Air 12/14/20 08:05 Room Air I & O 12/15/20 07:00 Intake Total 1850 ml Output Total 1450 ml Balance 400 ml Vital signs are stable. Patient is afebrile. Blood pressures are improving. The abdomen is benign. The surgical incision is clean dry and intact. Extremities show no clubbing or cyanosis. There is no Homans' sign. Assessment and plan Postoperative day #1 status post repeat delivery for PIH. Patient labetalol has been increased to 200 twice a day and her blood pressures are improving we will continue observation in regard to patient will continue to have routine convalescent care NAOMIE VIRAMONTES MD Dec 15, 2020 07:44
[2020-12-15 08:50] VITALS: BP 151/75
[2020-12-15] MEDS: LABETALOL 200 MG (NORMODYNE) TAB PO SCH ×2 (08:51→21:09)
[2020-12-15] MEDS: DOCUSATE SODIUM 100 MG (COLACE) CAP PO SCH ×2 (08:51→21:09)
--- NOTE | 2020-12-15 09:16 | Anesthesia-Regional Post-Op ---
Regional Patient Condition Mental Status: Alert, Oriented x3 Circulation: Same as Pre-Op Headache: Absent Sensation: Full Recovery Motor Block: Absent Post Op Complications Complications None Follow Up Care/Instructions Patient Instructions None needed. Anesthesia/Patient Condition Patient is doing well, no complaints, stable vital signs, no apparent adverse anesthesia problems. No complications reported per nursing. TRUDY LARSON CRNA Dec 15, 2020 09:16
[2020-12-15] MEDS: oxyCODONE/APAP 10/325MG (PERCOCET 10) TABLET PO PRN ×2 (10:03→17:02)
[2020-12-15 16:30] VITALS: BP 131/78
[2020-12-15 23:30] VITALS: BP 171/88
[2020-12-16 04:00] VITALS: BP 182/94
[2020-12-16] MEDS: IBUPROFEN 800 MG (MOTRIN) TAB PO SCH ×4 (05:40→23:37)
[2020-12-16] MEDS: DOCUSATE SODIUM 100 MG (COLACE) CAP PO SCH ×2 (08:01→20:20)
[2020-12-16] MEDS: LABETALOL 200 MG (NORMODYNE) TAB PO SCH ×2 (08:01→20:19)
[2020-12-16 08:02] VITALS: BP 176/98
[2020-12-16 09:48] VITALS: BP 172/93
[2020-12-16 12:10] VITALS: BP 188/115
[2020-12-16] MEDS ORDERED: LABETALOL 200 MG (NORMODYNE) TAB PO NR (12:30)
[2020-12-16] MEDS: oxyCODONE/APAP 10/325MG (PERCOCET 10) TABLET PO PRN ×2 (16:12→20:21)
[2020-12-16 16:23] VITALS: BP 182/106
[2020-12-16 20:00] VITALS: BP 187/91
[2020-12-17] VITALS (9 sets, daily range): BP systolic 161–208; BP diastolic 78–113
[2020-12-17] MEDS: IBUPROFEN 800 MG (MOTRIN) TAB PO SCH ×2 (05:20→16:22)
[2020-12-17] MEDS: oxyCODONE/APAP 10/325MG (PERCOCET 10) TABLET PO PRN ×2 (08:34→17:08)
[2020-12-17] MEDS: DOCUSATE SODIUM 100 MG (COLACE) CAP PO SCH ×2 (08:39→20:42)
[2020-12-17] MEDS: LABETALOL 200 MG (NORMODYNE) TAB PO SCH ×2 (08:39→20:42)
[2020-12-17] MEDS ORDERED: meTOprolol 5 MG/5 ML (LOPRESSOR) VIAL IV NR (15:30)
[2020-12-17] MEDS ORDERED: LABETALOL 200 MG (NORMODYNE) TAB PO NR (15:30)
--- NOTE | 2020-12-17 17:43 | Consultation-Cardiology ---
HPI-Cardiology Cardiology Consultation: Date of Consultation 12/17/2020 Date of Admission 12/14/2020 Attending Physician Zeke Moy MD Admitting Physician Alysha Colvin MD Consulting Physician CHERELLE PAGE JR, MD HPI: Time Seen by a Provider: 18:02 Chief Complaint: Reason for consultation: Hypertensive urgency/emergency I had the pleasure of seeing Lakeshia on the unit here at [facility] in [place], [place] this evening. She has a history of hypertension and has been on medication for quite some time. She had been taking labetalol during her with reasonably good control of her blood pressure. She also developed gestational diabetes and was taking Metformin. On Monday she had a section. She was doing well until last evening when her blood pressure started to become elevated despite receiving her labetalol. This morning her blood pressure was markedly elevated and a cardiology consultation was requested. She states that when her blood pressure becomes quite elevated, she gets lightheaded but denies syncope or visual changes. She denies chest pain, dyspnea, paroxysmal nocturnal dyspnea, orthopnea, palpitations, or ankle edema. Certain portions of this document may have been dictated utilizing voice recognition technology. Inherent to this technology, typographical and grammati stanley errors may exist. As much as I am diligent to identify and correct these mistakes, some errors may remain in the document. Review of Systems-Cardiology Review of Systems Expected Date of Delivery: Jan 03, 2021 Other comments Review of 10 organ systems is as per the history of present illness, otherwise negative. NZI-Dizmgp-Kiwzeu Hx Patient Social History Marrital Status: Smoking Status: Current Everyday Smoker 2nd Hand Smoke Exposure: Yes Alcohol Use?: No Pt feels they are or have been: No Immunizations Up To Date Date of Influenza Vaccine: Nov 14, 2020 Past Medical History PMH As described under Assessment. Family Medical History Family Medical History: Her mother has a history of a myocardial infarction. Family History: Autism G8 BROTHER Diabetes mellitus 19 FATHER FH: throat cancer 19 FATHER Hypertension 19 FATHER 19 MOTHER G8 BROTHER Allergies and Home Medications Allergies Coded Allergies: lisinopril (Verified Allergy, Mild, 07/23/19) hydrocodone (Verified Allergy, Unknown, 07/23/19) strawberry (Verified Allergy, Unknown, 07/23/19) Patient Home Medication List Home Medication List Reviewed: Yes Docusate Sodium (Colace) 100 Mg Capsule, 100 MG PO BID Prescribed by: ZEKE CALIX on 12/14/20 0711 Ibuprofen (Ibuprofen) 800 Mg Tablet, 800 MG PO Q6H PRN for PAIN Prescribed by: ZEKE CALIX on 12/14/20 0711 Labetalol HCl (Labetalol HCl) 100 Mg Tablet, 100 MG PO BID, (Reported) Entered as Reported by: LEANA GARCÍA on 11/30/20 1539 Metformin HCl (Metformin HCl) 500 Mg Tablet, 500 MG PO BID, (Reported) Entered as Reported by: LEANA GARCÍA on 11/30/20 1539 Oxycodone HCl/Acetaminophen (Percocet 10-325 mg Tablet) 1 Each Tablet, 1 TAB PO Q4H PRN for PAIN-MODERATE Prescribed by: ZEKE CALIX on 12/14/20 0712 Vits #93/Iron Fum/FA ( Formula Tablet) 1 Each Tablet, 1 TAB PO DAILY, (Reported) Entered as Reported by: EJ VENEGAS on 02/09/17 1145 Exam Vital Signs Vital Signs Date Time Temp Pulse Resp B/P (MAP) Pulse Ox O2 Delivery O2 Flow Rate FiO2 12/17/20 16:20 36.5 72 20 197/96 (129) 97 12/17/20 08:35 Room Air Physical Exam General: Alert. No acute distress. Well nourished and appears stated age. She is obese. Eye: Extraocular movements are intact. Conjunctivae are clear. There are no xanthelasma. HENT: Normocephalic. Atraumatic. Carotid pulsations 2/2 without bruits. Neck: Jugular venous pressure does not appear elevated. No thyromegaly appreciated. Respiratory: Lungs are clear to auscultation. Respirations are non-labored. Breath sounds are equal. Symmetrical chest wall expansion. Cardiovascular: Normal rate. Regular rhythm. No murmur. No gallop. Point of maximal impulse is not appear displaced. Good pulses equal in all extremities. No edema. Gastrointestinal: Soft. Normal bowel sounds. Skin: Skin turgor is normal. There is no pallor. Musculoskeletal: No kyphosis or scoliosis appreciated. Neurologic: Alert and oriented to person, place, time. Cranial nerves 3-12 appear grossly intact. The patient has good motor tone strength in the upper and lower extremities bilaterally. Psychiatric: Cooperative. Appropriate mood & affect. Radiology ECHOCARDIOGRAM (12/17/2020): 1. Left ventricle: The cavity size is normal. There is mild concentric hypertrophy. Systolic function is normal. The estimated ejection fraction is 55- 60%. There were no regional wall motion abnormalities identified. Left ventricular diastolic function parameters are normal. 2. Right ventricle: The cavity size is mildly increased at 3.5 cm mid cavity. Systolic function is normal. TAPSE 2.6 cm. 3. Pulmonary arteries: The pulmonary artery pressure cannot be estimated on this study due to inadequate tricuspid regurgitant envelope. Diagnosis/Problems Diagnosis/Problems (1) Hypertensive emergency without congestive heart failure Assessment & Plan: She has been intolerant of lisinopril in the past which caused headaches. The labetalol is not keeping her blood pressure under good control at this point in time. I will start her on losartan 50 mg once a day. I have also ordered intravenous hydralazine to be given as needed for systolic blood pressures above 180 mmHg. I recommend she stay in the hospital overnight until we get her blood pressure more reasonably controlled. I suspect she could be discharged home tomorrow. She does not plan to have any more children and therefore, we do not have to be restricted in terms of what medications would be safe to give her for the hypertension. (2) Gestational diabetes mellitus Assessment & Plan: This may increase her risk of developing type 2 diabetes mellitus in the future if she does not lose weight. (3) Morbid obesity Assessment & Plan: She needs to work on weight loss. This will help improve her blood pressure control. (4) Cigarette smoker Assessment & Plan: I encouraged her to quit smoking. She states she is allergic to nicotine patches and gum. I suggested she try nicotine lozenges. If she develops a reaction to these, she may want to consider alternative pharmacologic therapies to help her quit smoking. CHERELLE PAGE JR, MD Dec 17, 2020 17:43
[2020-12-17] MEDS ORDERED: hydrALAZINE (APESOLINE) 20 MG/ML VIAL IV NR (18:00)
[2020-12-17] MEDS ORDERED: LOSARTAN 50 MG (COZAAR) TAB PO NR (18:00)
[2020-12-17 19:09] LABS: POTASSIUM 3.8 MMOL/L (3.6-5.0)
[2020-12-17 19:10] LABS: CALCIUM 9.4 MG/DL (8.5-10.1)
[2020-12-17 19:37] LABS: CREATININE SERUM 0.81 MG/DL (0.60-1.30)
[2020-12-17] MEDS: hydrALAZINE (APESOLINE) 20 MG/ML VIAL IV SCH (21:34)
[2020-12-18] VITALS: BP 187/104
[2020-12-18] MEDS: IBUPROFEN 800 MG (MOTRIN) TAB PO SCH ×3 (00:45→12:14)
[2020-12-18] MEDS: oxyCODONE/APAP 10/325MG (PERCOCET 10) TABLET PO PRN ×2 (00:45→06:05)
[2020-12-18] MEDS: hydrALAZINE (APESOLINE) 20 MG/ML VIAL IV SCH ×2 (01:21→06:29)
[2020-12-18 04:00] VITALS: BP 169/86
[2020-12-18 06:18] LABS: POTASSIUM 3.5 MMOL/L (3.6-5.0)
[2020-12-18 06:19] LABS: CALCIUM 8.6 MG/DL (8.5-10.1)
[2020-12-18 06:23] LABS: CREATININE SERUM 0.75 MG/DL (0.60-1.30)
[2020-12-18] MEDS ORDERED: LOSARTAN 50 MG (COZAAR) TAB PO SCH ×2 (07:15→09:00)
[2020-12-18 08:06] VITALS: BP 187/97
[2020-12-18] MEDS: LABETALOL 200 MG (NORMODYNE) TAB PO SCH (08:08)
[2020-12-18] MEDS: DOCUSATE SODIUM 100 MG (COLACE) CAP PO SCH (08:08)
[2020-12-18 09:04] VITALS: BP 164/92
[2020-12-18] MEDS ORDERED: LOSA50TA63 PO (10:24)
--- NOTE | 2020-12-18 10:26 | Cardiology Progress Note ---
Progress Note-Cardiology Events since last exam Date Seen by Provider: Dec 18, 2020 Time Seen by Provider: 10:25 Events since last exam I am seeing her for hypertensive emergency in the setting of chronic hyperte nsion. Overnight, her blood pressure has improved after starting losartan. I increased the dose this morning. She was actually hypertensive when she was admitted to the hospital and that was on labetalol. She denies chest pain, dyspnea, palpitations, syncope, or ankle edema. She wants to go home today. She does not have a primary care provider. Certain portions of this document may have been dictated utilizing voice recognition technology. Inherent to this technology, typographical and g rammatical errors may exist. As much as I am diligent to identify and correct these mistakes, some errors may remain in the document. Vitals Last set of Vitals Signs Vital Signs 12/18/20 12/18/20 08:06 09:04 Temp 36.3 Pulse 80 Resp 16 B/P (MAP) 164/92 (116) Pulse Ox 98 O2 Delivery Room Air Labs Labs Laboratory Tests 12/17/20 18:35 12/18/20 05:36 Exam Vital Signs Vital Signs Date Time Temp Pulse Resp B/P (MAP) Pulse Ox O2 Delivery O2 Flow Rate FiO2 12/18/20 12:40 12/18/20 09:04 80 12/18/20 08:06 36.3 16 98 Room Air Physical Exam General: Alert. No acute distress. She is obese. Eye: No xanthelasma. HENT: Normocephalic. Neck: Jugular venous pressure does not appear elevated. Respiratory: Lungs are clear to auscultation. Respirations are non-labored. Breath sounds are equal. Symmetrical chest wall expansion. Cardiovascular: Normal rate. Regular rhythm. No murmur. No gallop. No edema. Gastrointestinal: Soft. Normal bowel sounds. Skin: Warm. Dry. Neurologic: Alert and oriented to person, place, time. Cranial nerves 3-11 grossly intact. Psychiatric: Cooperative. Appropriate mood & affect. Labs Laboratory Tests Test 12/17/20 18:35 12/18/20 05:36 Range/Units Sodium Level 140 138 135-145 MMOL/L Potassium Level 3.8 3.5 L 3.6-5.0 MMOL/L Chloride Level 107 105 98-107 MMOL/L Carbon Dioxide Level 21 22 21-32 MMOL/L Anion Gap 12 11 5-14 MMOL/L Blood Urea Nitrogen 12 12 7-18 MG/DL Creatinine 0.81 0.75 0.60-1.30 MG/DL Estimat Glomerular Filtration Rate 86 94 BUN/Creatinine Ratio 15 16 Glucose Level 122 H 134 H 70-105 MG/DL Calcium Level 9.4 8.6 8.5-10.1 MG/DL Diagnosis/Problems Diagnosis/Problems (1) Hypertensive emergency without congestive heart failure Assessment & Plan: She has been intolerant of lisinopril in the past which caused headaches. Her blood pressure is improved with the addition of losartan. She should be discharged home on labetalol 400 mg twice daily and losartan 100 mg once a day. I have sent an electronic prescription for losartan to her pharmacy. I have also asked her to monitor her blood pressures closely at home. I have asked her to follow-up with me in my office in 1 month and put an order to get her on my schedule with the appointment date and time in her discharge instructions. (2) Gestational diabetes mellitus Assessment & Plan: This may increase her risk of developing type 2 diabetes mellitus in the future if she does not lose weight. (3) Morbid obesity Assessment & Plan: She needs to work on weight loss. This will help improve her blood pressure control and decrease her risk of developing type 2 diabetes mellitus. (4) Cigarette smoker Assessment & Plan: I again encouraged her to quit smoking. Unfortunately, despite knowing the health risks she continued to smoke through her entire . CHERELLE PAGE JR, MD Dec 18, 2020 10:26
--- NOTE | 2020-12-18 11:21 | Progress Note ---
Standard Progress Note Progress Notes/Assess & Plan Date Seen by a Provider: Dec 16, 2020 Time Seen by a Provider: 08:00 Progress/Assessment & Plan This patient is without complaint. She is ambulating, voiding, tolerating oral intake well and has good pain control. Vital Signs Date Time Temp Pulse Resp B/P (MAP) Pulse Ox O2 Delivery O2 Flow Rate FiO2 12/15/20 03:05 36.5 83 18 174/95 (121) 97 Room Air 12/14/20 23:16 36.2 72 18 172/97 (122) 97 Room Air 12/14/20 20:58 62 160/87 (111) 12/14/20 19:46 35.7 96 16 182/97 (125) 95 Room Air 12/14/20 15:33 36.1 79 16 171/87 (115) 98 Room Air 12/14/20 12:12 Room Air 12/14/20 11:28 37.1 84 16 157/85 (109) 98 Room Air 12/14/20 09:15 36.3 71 16 167/91 (116) 98 Room Air 12/14/20 08:45 36.3 18 143/111 (122) 100 Room Air 12/14/20 08:44 Room Air 12/14/20 08:30 Room Air 12/14/20 08:30 36.4 18 150/92 (111) 100 Room Air 12/14/20 08:15 Room Air 12/14/20 08:15 36.3 18 144/90 (108) 100 Room Air 12/14/20 08:05 36.8 18 146/93 (110) 99 Room Air 12/14/20 08:05 Room Air I & O 12/15/20 07:00 Intake Total 1850 ml Output Total 1450 ml Balance 400 ml Vital signs are stable. Patient is afebrile. Blood pressures are improving. The abdomen is benign. The surgical incision is clean dry and intact. Extremities show no clubbing or cyanosis. There is no Homans' sign. Assessment and plan Postoperative day #1 status post repeat delivery for PIH. Patient labetalol has been increased to 200 twice a day and her blood pressures are improving we will continue observation in regard to patient will continue to have routine convalescent care This note is for December 16, 2020 Patient was without complaint. She is ambulating, voiding, tolerating oral intake and has good pain control. Her blood pressures were remaining elevated Vital signs are stable with elevated blood pressures The abdomen was benign Assessment and planPostoperative day #2 status post repeat delivery due to gestational diabetes and PIH.We will continue labetalol and increase the dose and see if we get her blood pressure under control. NAOMIE VIRAMONTES MD Dec 18, 2020 11:21
--- NOTE | 2020-12-18 11:23 | Progress Note ---
Standard Progress Note Progress Notes/Assess & Plan Date Seen by a Provider: Dec 17, 2020 Time Seen by a Provider: 07:49 Progress/Assessment & Plan This patient is without complaint. She is ambulating, voiding, tolerating oral intake well and has good pain control. Vital Signs Date Time Temp Pulse Resp B/P (MAP) Pulse Ox O2 Delivery O2 Flow Rate FiO2 12/15/20 03:05 36.5 83 18 174/95 (121) 97 Room Air 12/14/20 23:16 36.2 72 18 172/97 (122) 97 Room Air 12/14/20 20:58 62 160/87 (111) 12/14/20 19:46 35.7 96 16 182/97 (125) 95 Room Air 12/14/20 15:33 36.1 79 16 171/87 (115) 98 Room Air 12/14/20 12:12 Room Air 12/14/20 11:28 37.1 84 16 157/85 (109) 98 Room Air 12/14/20 09:15 36.3 71 16 167/91 (116) 98 Room Air 12/14/20 08:45 36.3 18 143/111 (122) 100 Room Air 12/14/20 08:44 Room Air 12/14/20 08:30 Room Air 12/14/20 08:30 36.4 18 150/92 (111) 100 Room Air 12/14/20 08:15 Room Air 12/14/20 08:15 36.3 18 144/90 (108) 100 Room Air 12/14/20 08:05 36.8 18 146/93 (110) 99 Room Air 12/14/20 08:05 Room Air I & O 12/15/20 07:00 Intake Total 1850 ml Output Total 1450 ml Balance 400 ml Vital signs are stable. Patient is afebrile. Blood pressures are improving. The abdomen is benign. The surgical incision is clean dry and intact. Extremities show no clubbing or cyanosis. There is no Homans' sign. Assessment and plan Postoperative day #1 status post repeat delivery for PIH. Patient labetalol has been increased to 200 twice a day and her blood pressures are improving we will continue observation in regard to patient will continue to have routine convalescent care This note is for December 16, 2020 Patient was without complaint. She is ambulating, voiding, tolerating oral intake and has good pain control. Her blood pressures were remaining elevated Vital signs are stable with elevated blood pressures The abdomen was benign Assessment and planPostoperative day #2 status post repeat delivery due to gestational diabetes and PIH.We will continue labetalol and increase the dose and see if we get her blood pressure under control. This note is for December 17, 2020 This patient is pain. She is ambulating, voiding, tolerating oral intake well and has good pain control. Vital signs are stable however patient blood pressure remains fairly markedly elevated we have increased labetalol and increase that again and still has elevated blood pressure we will consult cardiology at this point The abdomen is benign. Extremities show no clubbing cyanosis. There is no Homans' sign. Assessment and plan Postoperative day number3 status post repeat delivery with good recovery from the but with persistently elevated blood pressures we will follow cardiology's recommendations in regard to her blood pressure NAOMIE VIRAMONTES MD Dec 18, 2020 11:23
--- NOTE | 2020-12-18 11:24 | Progress Note ---
Standard Progress Note Progress Notes/Assess & Plan Date Seen by a Provider: Dec 18, 2020 Time Seen by a Provider: 07:11 Progress/Assessment & Plan This patient is without complaint. She is ambulating, voiding, tolerating oral intake well and has good pain control. Vital Signs Date Time Temp Pulse Resp B/P (MAP) Pulse Ox O2 Delivery O2 Flow Rate FiO2 12/15/20 03:05 36.5 83 18 174/95 (121) 97 Room Air 12/14/20 23:16 36.2 72 18 172/97 (122) 97 Room Air 12/14/20 20:58 62 160/87 (111) 12/14/20 19:46 35.7 96 16 182/97 (125) 95 Room Air 12/14/20 15:33 36.1 79 16 171/87 (115) 98 Room Air 12/14/20 12:12 Room Air 12/14/20 11:28 37.1 84 16 157/85 (109) 98 Room Air 12/14/20 09:15 36.3 71 16 167/91 (116) 98 Room Air 12/14/20 08:45 36.3 18 143/111 (122) 100 Room Air 12/14/20 08:44 Room Air 12/14/20 08:30 Room Air 12/14/20 08:30 36.4 18 150/92 (111) 100 Room Air 12/14/20 08:15 Room Air 12/14/20 08:15 36.3 18 144/90 (108) 100 Room Air 12/14/20 08:05 36.8 18 146/93 (110) 99 Room Air 12/14/20 08:05 Room Air I & O 12/15/20 07:00 Intake Total 1850 ml Output Total 1450 ml Balance 400 ml Vital signs are stable. Patient is afebrile. Blood pressures are improving. The abdomen is benign. The surgical incision is clean dry and intact. Extremities show no clubbing or cyanosis. There is no Homans' sign. Assessment and plan Postoperative day #1 status post repeat delivery for PIH. Patient labetalol has been increased to 200 twice a day and her blood pressures are improving we will continue observation in regard to patient will continue to have routine convalescent care This note is for December 16, 2020 Patient was without complaint. She is ambulating, voiding, tolerating oral intake and has good pain control. Her blood pressures were remaining elevated Vital signs are stable with elevated blood pressures The abdomen was benign Assessment and planPostoperative day #2 status post repeat delivery due to gestational diabetes and PIH.We will continue labetalol and increase the dose and see if we get her blood pressure under control. This note is for December 17, 2020 This patient is pain. She is ambulating, voiding, tolerating oral intake well and has good pain control. Vital signs are stable however patient blood pressure remains fairly markedly elevated we have increased labetalol and increase that again and still has elevated blood pressure we will consult cardiology at this point The abdomen is benign. Extremities show no clubbing cyanosis. There is no Homans' sign. Assessment and plan Postoperative day number3 status post repeat delivery with good recovery from the but with persistently elevated blood pressures we will follow cardiology's recommendations in regard to her blood pressure This note is for December 18, 2020 Patient is without complaint. She did see the granite polisher yesterday and he hasTaken over care for her blood pressure and will follow up in that re gardPatient is requesting discharge home Vital signs are stable. Vital Signs Date Time Temp Pulse Resp B/P (MAP) Pulse Ox O2 Delivery O2 Flow Rate FiO2 12/18/20 09:04 80 164/92 (116) 12/18/20 08:06 36.3 82 16 187/97 (127) 98 Room Air 12/18/20 04:00 36.4 80 16 169/86 (113) Room Air 12/18/20 00:00 36.5 87 12 187/104 (131) Room Air 12/17/20 20:00 36.4 80 12 161/78 (105) 98 Room Air 12/17/20 18:38 87 18 168/93 (118) 98 12/17/20 17:46 80 18 203/109 (140) 12/17/20 16:20 36.5 72 20 197/96 (129) 97 12/17/20 13:38 36.1 73 18 208/113 (144) 99 Blood pressures remain elevated The abdomen is benign. The surgical incision is clean dry intact. Dementia no clubbing cyanosis. Is normal exam. Assessment and plan Postoperative day #4 status post repeat delivery doing wellExcept for elevated blood Pressures for which she is now under the care of cardiology We will discharge home with follow-up in clinic and will follow up with cardiology per their recommendation Final Diagnosis 37-weekRepeat NAOMIE VIRAMONTES MD Dec 18, 2020 11:24
--- NOTE | 2020-12-18 11:28 | Discharge Summary ---
Discharge Summary 37-week repeat This patient is a 54-brgu-[id number] patient who is a marshall just past 37 weeks gestation forRepeat due to PIH and gestational diabetes.She underwent repeat cesareanOn 12/14/2020. The procedure was uncomplicated patient recovered uneventfully. On 102 patient was ambulating, voiding, tolerating oral intake and had good pain control. Her blood pressures remained elevated and we increased her labetalol On 102 patient again was ambulating, voiding, tolerating oral intake well and having good pain control. Her blood pressures remained elevated and we again increased her labetalol On 102 patient is without complaint Recovered well postoperative day 3 with persistently elevated blood pressures We consulted cardiology for evaluation and management of her blood pressure Now on 1028 patient again is ambulating well voiding well tolerating oral intake well has good pain control. She is requesting discharge home. This is p ostoperative day #4. Patient will be allowed discharge home with follow-up in clinic and will follow up with cardiology per their recommendations Principal diagnosis hospitalization repeat delivery Secondary diagnoses are previous cesareans Severe PIH Gestational diabetes Operation procedures include monitoring Spinal analgesia Repeat delivery Cardiology consult Patient is given appropriate discharge instructions Discharge medications are Percocet Motrin ColacePatient is continue blood pressure medication as prescribed by cardiology NAOMIE VIRAMONTES MD Dec 18, 2020 11:28
== END 2020-12-18 12:40 | disposition home or self-care (01) | DRG 787 ==
LOC: LDRP 04:50
PROVIDERS: ADMIT Obstetrics & Gynecology; ATTEND Obstetrics & Gynecology
PROC: 10D00Z1 Extraction of Products of Conception, Low, Open Approach (ICD-10-PCS; principal; 2020-12-14 07:17)
DX: O34.211 Maternal care for low transverse scar from previous cesarean delivery (principal); I16.1 Hypertensive emergency; O13.4 Gestational [pregnancy-induced] hypertension without significant proteinuria, complicating childbirth; Z3A.37 37 weeks gestation of pregnancy; Z37.0 Single live birth; Z88.5 Allergy status to narcotic agent; O24.429 Gestational diabetes mellitus in childbirth, unspecified control; Z79.84 Long term (current) use of oral hypoglycemic drugs; Z79.899 Other long term (current) drug therapy; O99.334 Smoking (tobacco) complicating childbirth; F17.210 Nicotine dependence, cigarettes, uncomplicated; O99.214 Obesity complicating childbirth; E66.01 Morbid (severe) obesity due to excess calories
CPT/HCPCS: 36415; 80048; 82947; 83033; 83036; 85025; 86850; 86900; 86901; 87081; 93306; 94664

== ENCOUNTER 2021-11-20 20:01 | Emergency (ER) | payer MEDICAID ==
[~2021-11-20] VITALS: Ht 70 cm; Wt 117.0 kg
[~2021-11-20 20:01] MED LIST changes: -LABE100T6 PO; +LABE100T9 PO; +LABE200T10 PO; -LABE200T7 PO; +LOSA50TA63 PO
[2021-11-20 20:50] LABS: BASOPHILS # (AUTO) 0.1 10^3/uL (0.0-0.1); BASOPHILS % (AUTO) 1 % (0-10); EOSINOPHILS # (AUTO) 0.2 10^3/uL (0.0-0.3); EOSINOPHILS % (AUTO) 2 % (0-10); HEMATOCRIT 42 % (35-52); HEMOGLOBIN 14.4 g/dL (11.5-16.0); LYMPHOCYTES # (AUTO) 3.3 10^3/uL (1.0-4.0); LYMPHOCYTES % (AUTO) 28 % (12-44); MEAN CORPUSCULAR HEMOGLOBIN 30 pg (25-34); MEAN CORPUSCULAR HGB CONC 35 g/dL (32-36); MEAN CORPUSCULAR VOLUME 87 fL (80-99); MEAN PLATELET VOLUME 11.4 fL (9.0-12.2); MONOCYTES # (AUTO) 0.7 10^3/uL (0.0-1.0); MONOCYTES % (AUTO) 6 % (0-12); NEUTROPHILS # (AUTO) 7.7 10^3/uL (1.8-7.8); NEUTROPHILS % (AUTO) 64 % (42-75); PLATELET COUNT 260 10^3/uL (130-400); WHITE BLOOD COUNT 12.1 10^3/uL (4.3-11.0)
[2021-11-20 20:57] LABS: ALBUMIN 4.2 GM/DL (3.2-4.5); BILIRUBIN,TOTAL 0.2 MG/DL (0.1-1.0); CALCIUM 9.5 MG/DL (8.5-10.1); CREATININE SERUM 1.07 MG/DL (0.60-1.30); POTASSIUM 3.9 MMOL/L (3.6-5.0); TOTAL PROTEIN 7.5 GM/DL (6.4-8.2)
[2021-11-20] MEDS ORDERED: PROMETHAZINE INJ 25 MG/ML (PHENERGAN) AMP IVP ONE (21:00)
[2021-11-20] MEDS ORDERED: NS IV 500 ML 500 ML IV ONE (21:00)
[2021-11-20 21:17] LABS: BILIRUBIN,URINE NEGATIVE (NEGATIVE); CLARITY,URINE CLEAR; COLOR,URINE YELLOW; GLUCOSE, URINE (UA) 1+ (NEGATIVE); KETONES,URINE NEGATIVE (NEGATIVE); LEUKOCYTE ESTERASE ,URINE TRACE (NEGATIVE); NITRITE,URINE NEGATIVE (NEGATIVE); PROTEIN,URINE NEGATIVE (NEGATIVE)
[2021-11-20 21:18] LABS: TSH (THYROID ANALYZER) 1.25 UIU/ML (0.35-4.94)
[2021-11-20 21:28] LABS: BACTERIA,URINE FEW /HPF
[2021-11-20] MEDS ORDERED: LABETALOL 200 MG (NORMODYNE) TAB PO STA (21:59)
--- NOTE | 2021-11-20 21:59 | ED General ---
General Chief Complaint: Abdominal/GI Problems Stated Complaint: ABD CRAMPING,NAUSEA Nursing Triage Note: PT To hospital with complaints of N/V and ABD cramping. PT states she went to [facility] and has been waiting for pregancy results. She was last at [facility] this monday for a blood test to confirm . PT states she is unsure how far along she is if . PT is Hypertensive and states she checks her blood pressures 3 times a day. PT is on hydrochlorathiazide, and has had many misscarrages. PT's BP currentely 179/126. Source of Information: Patient Exam Limitations: No Limitations History of Present Illness Date Seen by Provider: Nov 20, 2021 Time Seen by Provider: 20:33 Initial Comments This 26-year-old woman presents to the emergency room with complaints of vomiting, abdominal cramping, and early . She has had multiple positive urine tests. She also has severe hypertension that is inadequately treated. She is taking hydrochlorothiazide but is still significantly hypertensive. Her primary care provider is Dr. Mensah. Her code number stamper is Dr. Coleman. 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 Her LMP is sometime in early September. Allergies and Home Medications Allergies Coded Allergies: lisinopril (Verified Allergy, Mild, 07/23/19) hydrocodone (Verified Allergy, Unknown, 07/23/19) strawberry (Verified Allergy, Unknown, 07/23/19) Patient Home Medication List Home Medication List Reviewed: Yes Cephalexin (Cephalexin) 500 Mg Tablet, 500 MG PO TID Prescribed by: ELFEGO ZARATE on 11/20/212208 Docusate Sodium (Colace) 100 Mg Capsule, 100 MG PO BID Prescribed by: NAOMIE CALIX on 12/14/20 07 Ibuprofen (Ibuprofen) 800 Mg Tablet, 800 MG PO Q6H PRN for PAIN Prescribed by: NAOMIE CALIX on 12/14/20710 Labetalol HCl (Labetalol HCl) 100 Mg Tablet, 100 MG PO BID, (Reported) Entered as Reported by: LEANA GARCÍA on 11/30/20 153 Labetalol HCl (Labetalol HCl) 100 Mg Tablet, 100 MG PO BID Prescribed by: ELFEGO ZARATE on 11/20/212208 Losartan Potassium (Losartan Potassium) 50 Mg Tablet, 100 MG PO DAILY Prescribed by: CHERELLE COLEMAN JR, MD on 12/18/20 1024 Oxycodone HCl/Acetaminophen (Percocet 10-325 mg Tablet) 1 Each Tablet, 1 TAB PO Q4H PRN for PAIN-MODERATE Prescribed by: NAOMIE CALIX on 12/14/20 0712 Vits #93/Iron Fum/FA ( Formula Tablet) 1 Each Tablet, 1 TAB PO DAILY, (Reported) Entered as Reported by: EJ VENEGAS on 02/09/17 1145 Promethazine HCl (Promethazine Tablet) 25 Mg Tablet, 25 MG PO Q6H PRN for NAUSEA/VOMITING Prescribed by: ELFEGO ZARATE on 11/20/212208 Review of Systems Review of Systems Constitutional: no symptoms reported EENTM: no symptoms reported Respiratory: no symptoms reported Cardiovascular: see HPI Gastrointestinal: see HPI Genitourinary: see HPI : Yes LMP: Sep 20, 2021 Musculoskeletal: no symptoms reported Skin: no symptoms reported Psychiatric/Neurological: No Symptoms Reported Hematologic/Lymphatic: No Symptoms Reported Immunological/Allergic: no symptoms reported Past Ljmjgtf-Eytdsf-Dismwv Hx Patient Social History Tobacco Use?: Yes Tobacco type used: Cigarettes E-Cig or Vaping type used: Nicotine Substance use?: No Alcohol Use?: No Pt feels they are or have been: Unable to obtain Immunizations Up To Date PED Vaccines UTD: Yes Influenza Vaccine Up-to-Date: No; Not Current Seasonal Allergies Seasonal Allergies: No Past Medical History Surgeries: Yes (LITHOTRIPSY, URETERAL STENT; WISDOM TEETH PULLED) Section, Renal (laser renal stone removal, renal stents and removal), Tonsillectomy Respiratory: No Currently Using CPAP: No Currently Using BIPAP: No Cardiac: Yes Hypertension Neurological: No Reproductive Disorders: No Female Reproductive Disorders: Denies Sexually Transmitted Disease: No HIV/AIDS: No Genitourinary: Yes (Pyelonephritis) Kidney Stones Gastrointestinal: Yes (Chronic abdominal pain) Musculoskeletal: No Endocrine: Yes (GESTATIONAL DIABETES) Diabetes, Non-Insulin dep (Prediabetes) HEENT: Yes (DENTAL CARIES) Loss of Vision: Denies Hearing Impairment: Denies Cancer: No Psychosocial: No Integumentary: No Blood Disorders: No Adverse Reaction/Blood Tranf: No (HAS HAD BLOOD WITH NO REACTION) Family Medical History Autism G8 BROTHER Diabetes mellitus 19 FATHER FH: throat cancer 19 FATHER Hypertension 19 FATHER 19 MOTHER G8 BROTHER No Pertinent Family Hx Physical Exam Vital Signs Vital Signs - First Documented 11/20/21 20:08 Temp 36.8 Pulse 100 Resp 18 B/P (MAP) 172/113 (132) Pulse Ox 98 O2 Delivery Room Air Capillary Refill : Less Than 3 Seconds Height, Weight, BMI Height: 5'9.00" Weight: 254lbs. 2.0oz. [id number]; 238.00 BMI Method:Stated General Appearance: No Apparent Distress, WD/WN, Obese HEENT: Normal ENT Inspection Neck: Normal Inspection Respiratory: Lungs Clear, Normal Breath Sounds, No Accessory Muscle Use Cardiovascular: Regular Rate, Rhythm, No Edema, No Murmur Gastrointestinal: Normal Bowel Sounds, Non Tender, Soft Extremity: Normal Inspection, No Pedal Edema Neurologic/Psychiatric: Alert, Oriented x3, No Motor/Sensory Deficits, Normal Mood/Affect Skin: Normal Color, Warm/Dry Progress/Results/Core Measures Suspected Sepsis SIRS Temperature: Pulse: 100 Respiratory Rate: 18 Laboratory Tests 11/20/21 20:24: White Blood Count 12.1H Blood Pressure 172 /113 Mean: 132 Laboratory Tests 11/20/21 20:24: Creatinine 1.07, Platelet Count 260, Total Bilirubin 0.2 Results/Orders Lab Results Laboratory Tests Test 11/20/21 20:24 11/20/21 20:29 Range/Units White Blood Count 12.1 H 4.3-11.0 10^3/uL Red Blood Count 4.77 3.80-5.11 10^6/uL Hemoglobin 14.4 11.5-16.0 g/dL Hematocrit 42 35-52 % Mean Corpuscular Volume 87 80-99 fL Mean Corpuscular Hemoglobin 30 25-34 pg Mean Corpuscular Hemoglobin Concent 35 32-36 g/dL Red Cell Distribution Width 13.2 10.0-14.5 % Platelet Count 260 130-400 10^3/uL Mean Platelet Volume 11.4 9.0-12.2 fL Immature Granulocyte % (Auto) 0 % Neutrophils (%) (Auto) 64 42-75 % Lymphocytes (%) (Auto) 28 12-44 % Monocytes (%) (Auto) 6 0-12 % Eosinophils (%) (Auto) 2 0-10 % Basophils (%) (Auto) 1 0-10 % Neutrophils # (Auto) 7.7 1.8-7.8 10^3/uL Lymphocytes # (Auto) 3.3 1.0-4.0 10^3/uL Monocytes # (Auto) 0.7 0.0-1.0 10^3/uL Eosinophils # (Auto) 0.2 0.0-0.3 10^3/uL Basophils # (Auto) 0.1 0.0-0.1 10^3/uL Immature Granulocyte # (Auto) 0.0 0.0-0.1 10^3/uL Sodium Level 139 135-145 MMOL/L Potassium Level 3.9 3.6-5.0 MMOL/L Chloride Level 106 98-107 MMOL/L Carbon Dioxide Level 18 L 21-32 MMOL/L Anion Gap 15 H 5-14 MMOL/L Blood Urea Nitrogen 14 7-18 MG/DL Creatinine 1.07 0.60-1.30 MG/DL Estimat Glomerular Filtration Rate 73 BUN/Creatinine Ratio 13 Glucose Level 245 H 70-105 MG/DL Calcium Level 9.5 8.5-10.1 MG/DL Corrected Calcium 9.3 8.5-10.1 MG/DL Total Bilirubin 0.2 0.1-1.0 MG/DL Aspartate Amino Transf (AST/SGOT) 24 5-34 U/L Alanine Aminotransferase (ALT/SGPT) 36 0-55 U/L Alkaline Phosphatase 73 40-136 U/L Total Protein 7.5 6.4-8.2 GM/DL Albumin 4.2 3.2-4.5 GM/DL TSH [place] Testing 1.25 0.35-4.94 UIU/ML Human Chorionic Gonadotropin, Quant 47 H <5 MIU/ML Urine Color YELLOW Urine Clarity CLEAR Urine pH 6.0 5-9 Urine Specific [place] 1.025 H 1.016-1.022 Urine Protein NEGATIVE NEGATIVE Urine Glucose (UA) 1+ H NEGATIVE Urine Ketones NEGATIVE NEGATIVE Urine Nitrite NEGATIVE NEGATIVE Urine Bilirubin NEGATIVE NEGATIVE Urine Urobilinogen 0.2 < = 1.0 MG/DL Urine Leukocyte Esterase TRACE H NEGATIVE Urine RBC (Auto) TRACE-I H NEGATIVE Urine RBC 10-25 H /HPF Urine WBC 5-10 H /HPF Urine Squamous Epithelial Cells 2-5 /HPF Urine Crystals NONE /LPF Urine Bacteria FEW H /HPF Urine Casts NONE /LPF Urine Mucus NEGATIVE /LPF Urine Culture Indicated YES My Orders Orders - ELFEGO ORTIZ MD Cbc With Automated Diff (11/20/21 20:35) Comprehensive Metabolic Panel (11/20/21 20:35) Thyroid Analyzer (11/20/21 20:35) Ua Culture If Indicated (11/20/21 20:35) Ed Iv/Invasive Line Start (11/20/21 20:35) Hcg,Quantitative (11/20/21 20:48) Ns Iv 500 Ml (Sodium Chloride 0.9%) (11/20/21 21:00) Promethazine Injection (Phenergan Injec (11/20/21 21:00) Urine Culture (11/20/21 20:29) Labetalol Tablet (Normodyne Tablet) (11/20/21 21:59) Cephalexin Capsule (Keflex Capsule) (11/20/21 22:00) Medications Given in ED Current Medications Medications Dose Ordered Sig/Key Route Start Time Stop Time Status Last Admin Dose Admin Cephalexin HCl 500 mg ONCE ONCE PO 11/20/21 22:00 11/20/21 22:01 DC 11/20/21 22:05 500 MG Promethazine HCl 25 mg ONCE ONCE IVP 11/20/21 21:00 11/20/21 21:01 DC 11/20/21 21:05 25 MG Sodium Chloride 500 ml @ 0 mls/hr Q0M ONCE IV 11/20/21 21:00 11/20/21 21:01 DC 11/20/21 21:05 500 MLS/HR Vital Signs/I&O 11/20/21 11/20/21 20:08 22:42 Temp 36.8 Pulse 100 Resp 18 B/P (MAP) 172/113 (132) 181/117 Pulse Ox 98 O2 Delivery Room Air 11/21/21 00:00 Intake Total 500 ml Balance 500 ml Capillary Refill : Less Than 3 Seconds Blood Pressure Mean: 132 Progress Note : Progress Note Patient was treated with IV fluids and Phenergan. UTI was detected on urinalysis and treated with Keflex. Hypertension was treated with labetalol. Situation was discussed with Dr. VIRAMONTES who requested an hCG level be performed at the hospital on Monday prior to her follow-up appointment with him. See discharge instructions for further discussion. Departure Impression Primary Impression: Uncontrolled hypertension Additional Impressions: Urinary tract infection Qualified Codes: N39.0 - Urinary tract infection, site not specified Positive test Nausea & vomiting Qualified Codes: R11.2 - Nausea with vomiting, unspecified Disposition: HOME, SELF-CARE Condition: Improved Departure-Patient Inst. Decision time for Depature: 22:01 Referrals: NO,LOCAL PHYSICIAN (PCP/Family) Primary Care Physician Patient Instructions: Diabetes and Diet, High Blood Pressure ED, Type 2 Diabetes, Urinary Tract Infection, Adult ED Add. Discharge Instructions: 1. Uncontrolled high blood pressure Continue taking hydrochlorothiazide, and add labetalol as prescribed. Contact Dr. VIRAMONTES's office on Monday to arrange a time for follow-up and a blood pressure check. Avoid consuming things that may worsen your high blood pressure including caffeine, nicotine, excessive salt, and stimulants such as decongestant medications, energy drinks, diet pills, etc. 2. Urinary tract infection Drink plenty of clear liquids. Complete your antibiotics as prescribed. Review urine culture results with your doctor early next week to ensure you are taking an antibiotic appropriate for the bacteria grown in your urine culture. 3. Nausea and vomiting Eat a well-balanced diet with plenty of healthy snacks. Eating small quantities more frequently tends to help curb nausea. You may use doxylamine (Unisom) at bedtime to help reduce nausea. You may also use Phenergan (promethazine) as prescribed. These medications will cause drowsiness, so use with caution. Do not take these medications before driving or operating any machinery or making important decisions. 4. Your hCG level was low at only 47. This should be checked again on Monday to determine if the is viable and developing. Please your order form into the hospital on Monday morning for a repeat hCG level. Dr. VIRAMONTES can then review your lab results and make recommendations accordingly. 5. Hyperglycemia Your blood sugar was high in the emergency room. This likely represents diabetes. This needs to be followed very closely by your primary care provider and obstetrical provider. Discuss this as soon as possible in a follow-up appointment. In the meantime eat a diet very low in sugars and carbohydrates and drink plenty of water. If you are able to obtain a glucose meter, check your blood sugars fasting in the morning and 2 hours after meals. Report those blood sugars to your doctor. Return to the ER if you have worsening symptoms despite following these instructions. All discharge instructions reviewed with patient and/or family. Voiced understanding. Scripts Promethazine HCl (Promethazine Tablet) 25 Mg Tablet 25 MG PO Q6H PRN for NAUSEA/VOMITING, #20 TAB Prov: ELFEGO ORTIZ MD 11/20/21 Cephalexin (Cephalexin) 500 Mg Tablet 500 MG PO TID, #20 TAB Prov: ELFEGO ORTIZ MD 11/20/21 Labetalol HCl (Labetalol HCl) 100 Mg Tablet 100 MG PO BID, #30 TAB Prov: ELFEGO ORTIZ MD 11/20/21 Copy Copies To 1: NAOMIE VIRAMONTES MD Copies To 2: HERMILO MENSAH MD, JOSHUA T MD Nov 20, 2021 21:59
[2021-11-20] MEDS ORDERED: CEPHALEXIN 250 MG (KEFLEX) CAP PO ONE (22:00)
[2021-11-20] MEDS ORDERED: PROM25TA14 PO (22:09)
[2021-11-20] MEDS ORDERED: CEPH500T PO (22:09)
[2021-11-20] MEDS ORDERED: LABE100T9 PO (22:09)
[2021-11-20 22:42] VITALS: BP 181/117
== END 2021-11-20 22:36 | disposition home or self-care (01) ==
LOC: EDUNIT# 20:01 → ER 20:03
DX: O16.9 Unspecified maternal hypertension, unspecified trimester (principal); O23.40 Unspecified infection of urinary tract in pregnancy, unspecified trimester; N39.0 Urinary tract infection, site not specified; O99.330 Smoking (tobacco) complicating pregnancy, unspecified trimester; O99.210 Obesity complicating pregnancy, unspecified trimester; F17.210 Nicotine dependence, cigarettes, uncomplicated; Z87.442 Personal history of urinary calculi; Z96.0 Presence of urogenital implants; Z98.890 Other specified postprocedural states; Z3A.00 Weeks of gestation of pregnancy not specified; Z28.310 Unvaccinated for COVID-19
CPT/HCPCS: 36415; 80053; 81000; 84443; 84702; 84703; 85025; 87077; 87088; 87186

== ENCOUNTER → 2021-11-22 | Outpatient (CLI) | payer MEDICAID | LOC: LAB 09:38 | PROVIDERS: ATTEND Family Medicine | DX: Z34.90 Encounter for supervision of normal pregnancy, unspecified, unspecified trimester (principal); Z3A.00 Weeks of gestation of pregnancy not specified | CPT/HCPCS: 36415; 84702 ==

== ENCOUNTER 2021-11-29 23:28 | Emergency (ER) | payer MEDICAID ==
[~2021-11-29] VITALS: Ht 178 cm; Wt 118.0 kg
[2021-11-30] MEDS ORDERED: cefTRIAXone 1 GM PRE-MIX 50 ML IV STA (00:05)
[2021-11-30 00:37] VITALS: BP 187/126
[2021-11-30 00:45] LABS: BASOPHILS # (AUTO) 0.1 10^3/uL (0.0-0.1); BASOPHILS % (AUTO) 1 % (0-10); EOSINOPHILS # (AUTO) 0.3 10^3/uL (0.0-0.3); EOSINOPHILS % (AUTO) 3 % (0-10); HEMATOCRIT 44 % (35-52); HEMOGLOBIN 14.9 g/dL (11.5-16.0); LYMPHOCYTES # (AUTO) 3.7 10^3/uL (1.0-4.0); LYMPHOCYTES % (AUTO) 31 % (12-44); MEAN CORPUSCULAR HEMOGLOBIN 29 pg (25-34); MEAN CORPUSCULAR HGB CONC 34 g/dL (32-36); MEAN CORPUSCULAR VOLUME 86 fL (80-99); MEAN PLATELET VOLUME 11.1 fL (9.0-12.2); MONOCYTES # (AUTO) 0.8 10^3/uL (0.0-1.0); MONOCYTES % (AUTO) 7 % (0-12); NEUTROPHILS % (AUTO) 58 % (42-75); PLATELET COUNT 279 10^3/uL (130-400)
[2021-11-30 00:54] LABS: BILIRUBIN,URINE NEGATIVE (NEGATIVE); CLARITY,URINE CLEAR; COLOR,URINE YELLOW; GLUCOSE, URINE (UA) TRACE (NEGATIVE); KETONES,URINE NEGATIVE (NEGATIVE); LEUKOCYTE ESTERASE ,URINE 1+ (NEGATIVE); NITRITE,URINE POSITIVE (NEGATIVE); PH,URINE 5.5 (5-9); PROTEIN,URINE 1+ (NEGATIVE)
[2021-11-30 00:55] LABS: ALBUMIN 4.3 GM/DL (3.2-4.5); BILIRUBIN,TOTAL 0.4 MG/DL (0.1-1.0); CALCIUM 10.1 MG/DL (8.5-10.1); CREATININE SERUM 0.95 MG/DL (0.60-1.30); MAGNESIUM 1.6 MG/DL (1.6-2.4); POTASSIUM 3.8 MMOL/L (3.6-5.0); TOTAL PROTEIN 7.7 GM/DL (6.4-8.2)
[2021-11-30] MEDS ORDERED: ACETAMINOPHEN 500 MG TAB (TYLENOL) PO ONE (01:15)
[2021-11-30 01:19] LABS: ERYTHROCYTE SEDIMENTATION RATE 6 MM/HR (0-20)
[2021-11-30 01:20] LABS: BACTERIA,URINE LARGE /HPF; CALCIUM OXALATE CRYSTALS,UR FEW /LPF; HYALINE CASTS, URINE 0-2 /LPF; RBC,URINE 0-2 /HPF; WBC,URINE >100 /HPF
--- NOTE | 2021-11-30 02:13 | ED EENT ---
History of Present Illness General Chief Complaint: Dental Problems/Pain Stated Complaint: TOOTH PAIN,2 MONTHS Nursing Triage Note: Pt presents with upper R dental pain. She reports she was seen last week at the dentist to get it pulled, however they would not due to her HTN and status. Pt states tonight it has become swollen and can not aleviate the pain with topical Allergies and Home Medications Allergies Coded Allergies: nicotine (Verified Allergy, Intermediate, Hives, 11/21/21) Gum and Patch forms lisinopril (Verified Allergy, Mild, 07/23/19) hydrocodone (Verified Allergy, Unknown, 07/23/19) strawberry (Verified Allergy, Unknown, 07/23/19) Patient Home Medication List Cephalexin (Cephalexin) 500 Mg Tablet, 500 MG PO TID Prescribed by: ELFEGO ZARATE on 11/20/212208 Docusate Sodium (Colace) 100 Mg Capsule, 100 MG PO BID Prescribed by: NAOMIE CALIX on 12/14/20 07 Ibuprofen (Ibuprofen) 800 Mg Tablet, 800 MG PO Q6H PRN for PAIN Prescribed by: NAOMIE CALIX on 12/14/20 0711 Labetalol HCl (Labetalol HCl) 100 Mg Tablet, 100 MG PO BID, (Reported) Entered as Reported by: LEANA GARCÍA on 11/30/20 1539 Labetalol HCl (Labetalol HCl) 100 Mg Tablet, 100 MG PO BID Prescribed by: ELFEGO ZARATE on 11/20/21 220 Losartan Potassium (Losartan Potassium) 50 Mg Tablet, 100 MG PO DAILY Prescribed by: CHERELLE PAGE JR, MD on 12/18/20 1024 Oxycodone HCl/Acetaminophen (Percocet 10-325 mg Tablet) 1 Each Tablet, 1 TAB PO Q4H PRN for PAIN-MODERATE Prescribed by: NAOMIE CALIX on 12/14/20 0712 Vits #93/Iron Fum/FA ( Formula Tablet) 1 Each Tablet, 1 TAB PO DAILY, (Reported) Entered as Reported by: EJ VENEGAS on 02/09/17 1145 Promethazine HCl (Promethazine Tablet) 25 Mg Tablet, 25 MG PO Q6H PRN for NAUSEA/VOMITING Prescribed by: ELFEGO ZARATE on 11/20/212208 Past Adatfma-Fdfkmu-Swiurd Hx Immunizations Up To Date PED Vaccines UTD: Yes Seasonal Allergies Seasonal Allergies: No Past Medical History Surgeries: Yes (LITHOTRIPSY, URETERAL STENT; WISDOM TEETH PULLED) Section, Renal, Tonsillectomy Respiratory: No Currently Using CPAP: No Currently Using BIPAP: No Cardiac: Yes Hypertension Neurological: No Reproductive Disorders: No Female Reproductive Disorders: Denies Sexually Transmitted Disease: No HIV/AIDS: No Genitourinary: Yes (Pyelonephritis) Kidney Stones Gastrointestinal: Yes (Chronic abdominal pain) Musculoskeletal: No Endocrine: Yes (GESTATIONAL DIABETES) Diabetes, Non-Insulin dep HEENT: Yes (DENTAL CARIES) Loss of Vision: Denies Hearing Impairment: Denies Cancer: No Psychosocial: No Integumentary: No Blood Disorders: No Adverse Reaction/Blood Tranf: No (HAS HAD BLOOD WITH NO REACTION) Family Medical History Autism G8 BROTHER Diabetes mellitus 19 FATHER FH: throat cancer 19 FATHER Hypertension 19 FATHER 19 MOTHER G8 BROTHER No Pertinent Family Hx Physical Exam Vital Signs Vital Signs - First Documented 11/29/21 23:50 Temp 36.6 Pulse 97 Resp 16 B/P (MAP) 187/126 (146) Height, Weight, BMI Height: 5'9.00" Weight: 254lbs. 2.0oz. 115.048290fk; 37.00 BMI Method:Stated Progress/Results/Core Measures Results/Orders Lab Results Laboratory Tests Test 11/30/21 00:27 11/30/21 00:45 Range/Units White Blood Count 12.0 H 4.3-11.0 10^3/uL Red Blood Count 5.08 3.80-5.11 10^6/uL Hemoglobin 14.9 11.5-16.0 g/dL Hematocrit 44 35-52 % Mean Corpuscular Volume 86 80-99 fL Mean Corpuscular Hemoglobin 29 25-34 pg Mean Corpuscular Hemoglobin Concent 34 32-36 g/dL Red Cell Distribution Width 13.2 10.0-14.5 % Platelet Count 279 130-400 10^3/uL Mean Platelet Volume 11.1 9.0-12.2 fL Immature Granulocyte % (Auto) 1 % Neutrophils (%) (Auto) 58 42-75 % Lymphocytes (%) (Auto) 31 12-44 % Monocytes (%) (Auto) 7 0-12 % Eosinophils (%) (Auto) 3 0-10 % Basophils (%) (Auto) 1 0-10 % Neutrophils # (Auto) 7.0 1.8-7.8 10^3/uL Lymphocytes # (Auto) 3.7 1.0-4.0 10^3/uL Monocytes # (Auto) 0.8 0.0-1.0 10^3/uL Eosinophils # (Auto) 0.3 0.0-0.3 10^3/uL Basophils # (Auto) 0.1 0.0-0.1 10^3/uL Immature Granulocyte # (Auto) 0.1 0.0-0.1 10^3/uL Erythrocyte Sedimentation Rate 6 0-20 MM/HR Sodium Level 137 135-145 MMOL/L Potassium Level 3.8 3.6-5.0 MMOL/L Chloride Level 101 98-107 MMOL/L Carbon Dioxide Level 21 21-32 MMOL/L Anion Gap 15 H 5-14 MMOL/L Blood Urea Nitrogen 10 7-18 MG/DL Creatinine 0.95 0.60-1.30 MG/DL Estimat Glomerular Filtration Rate 85 BUN/Creatinine Ratio 11 Glucose Level 169 H 70-105 MG/DL Lactic Acid Level 2.65 *H 0.50-2.00 MMOL/L Calcium Level 10.1 8.5-10.1 MG/DL Corrected Calcium 9.9 8.5-10.1 MG/DL Magnesium Level 1.6 1.6-2.4 MG/DL Total Bilirubin 0.4 0.1-1.0 MG/DL Aspartate Amino Transf (AST/SGOT) 19 5-34 U/L Alanine Aminotransferase (ALT/SGPT) 34 0-55 U/L Alkaline Phosphatase 79 40-136 U/L C-Reactive Protein High Sensitivity 0.67 H 0.00-0.50 MG/DL Total Protein 7.7 6.4-8.2 GM/DL Albumin 4.3 3.2-4.5 GM/DL Human Chorionic Gonadotropin, Quant 969 H <5 MIU/ML Urine Color YELLOW Urine Clarity CLEAR Urine pH 5.5 5-9 Urine Specific [place] >=1.030 1.016-1.022 Urine Protein 1+ H NEGATIVE Urine Glucose (UA) TRACE H NEGATIVE Urine Ketones NEGATIVE NEGATIVE Urine Nitrite POSITIVE H NEGATIVE Urine Bilirubin NEGATIVE NEGATIVE Urine Urobilinogen 0.2 < = 1.0 MG/DL Urine Leukocyte Esterase 1+ H NEGATIVE Urine RBC (Auto) TRACE-I H NEGATIVE Urine RBC 0-2 /HPF Urine WBC >100 H /HPF Urine Squamous Epithelial Cells 5-10 /HPF Urine Crystals PRESENT H /LPF Urine Calcium Oxalate Crystals FEW H /LPF Urine Bacteria LARGE H /HPF Urine Casts PRESENT /LPF Urine Hyaline Casts 0-2 H /LPF Urine Mucus NEGATIVE /LPF Urine Culture Indicated YES My Orders Orders - TAVON PANDYA DO Ed Iv/Invasive Line Start (11/30/21 00:05) Cbc With Automated Diff (11/30/21 00:05) Comprehensive Metabolic Panel (11/30/21 00:05) Hs C Reactive Protein (11/30/21 00:05) Erythrocyte Sedimentation Rate (11/30/21 00:05) Hcg,Quantitative (11/30/21 00:05) Lactic Acid Analyzer (11/30/21 00:05) Magnesium (11/30/21 00:05) Ua Culture If Indicated (11/30/21 00:05) Blood Culture (11/30/21 00:05) Ceftriaxone 1 Gm Pre-Mix (Rocephin 1 Gm (11/30/21 00:05) Acetaminophen Tablet (Tylenol Tablet) (11/30/21 01:15) Urine Culture (11/30/21 00:45) Medications Given in ED Current Medications Medications Dose Ordered Sig/Key Route Start Time Stop Time Status Last Admin Dose Admin Acetaminophen 1,000 mg ONCE ONCE PO 11/30/21 01:15 11/30/21 01:16 DC 11/30/21 01:25 1,000 MG Vital Signs/I&O 11/29/21 11/30/21 23:50 00:37 Temp 36.6 36.6 Pulse 97 97 Resp 16 16 B/P (MAP) 187/126 (146) 187/126 Blood Pressure Mean: 146 Departure Impression Primary Impression: Left against medical advice Disposition: 07 AGAINST MEDICAL ADVICE Condition: Against Medical Advice Departure-Patient Inst. Referrals: HERMILO MENSAH MD (PCP) Primary Care Physician [facility] (Family) Primary Care Physician TAVON PANDYA DO Nov 30, 2021 02:13
== END 2021-11-30 02:00 | disposition left against medical advice (07) ==
LOC: EDUNIT# 23:28 → ER 23:31
DX: O99.619 Diseases of the digestive system complicating pregnancy, unspecified trimester (principal); K02.9 Dental caries, unspecified; Z88.5 Allergy status to narcotic agent; Z28.310 Unvaccinated for COVID-19; Z3A.00 Weeks of gestation of pregnancy not specified
CPT/HCPCS: 36415; 80053; 81000; 83605; 83735; 84702; 85025; 85652; 86141; 87040; 87077; 87088; 87186

== ENCOUNTER 2021-12-31 19:28 | Emergency (ER) | payer MEDICAID ==
[~2021-12-31] VITALS: Ht 175.3 cm; Wt 117.9 kg
[2021-12-31] MEDS ORDERED: LABETALOL 200 MG (NORMODYNE) TAB PO ONE (19:45)
[2021-12-31] MEDS ORDERED: cefTRIAXone 1,000 MG VIAL IM ONE (19:45)
[2021-12-31] MEDS ORDERED: LIDOCAINE 1% INJ 20 ML VIAL INJ ONE (19:45)
--- NOTE | 2021-12-31 19:49 | ED Hip Pain/Injury ---
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 PT REPORTS SHE IS APPROX 9 WKS , A&OX4, DENIES PAIN. Source: patient Exam Limitations: no limitations History of Present Illness Date Seen by Provider: Dec 31, 2021 Time Seen by Provider: 19:47 Initial Comments To ER with vaginal bleeding that began just prior to arrival after she used the bathroom. She urinated and wiped and noticed blood on the toilet paper. No abdominal cramping or pain. She was here last night for dental pain. She is currently on nitrofurantoin for urinary tract infection. She takes labetalol 1 00 mg twice daily for hypertension. She has 3 live children at home, 8 miscarriages. G 12 P3 AB 8. She follows with Dr. MOY. Timing/Duration: constant Severity: moderate Location: hip (R) Method of Injury: fell Modifying Factors: Worse With Movement Associated Symptoms: denies symptoms Allergies and Home Medications Allergies Coded Allergies: nicotine (Verified Allergy, Intermediate, Hives, 11/21/21) Gum and Patch forms lisinopril (Verified Allergy, Mild, 07/23/19) hydrocodone (Verified Allergy, Unknown, 07/23/19) strawberry (Verified Allergy, Unknown, 07/23/19) Patient Home Medication List Home Medication List Reviewed: Yes Cephalexin (Cephalexin) 500 Mg Tablet, 500 MG PO TID Prescribed by: ELFEGO ZARATE on 11/20/212208 Docusate Sodium (Colace) 100 Mg Capsule, 100 MG PO BID Prescribed by: NAOMIE CALIX on 12/14/20 0711 Ibuprofen (Ibuprofen) 800 Mg Tablet, 800 MG PO Q6H PRN for PAIN Prescribed by: NAOMIE CALIX on 12/14/20 0711 Labetalol HCl (Labetalol HCl) 100 Mg Tablet, 100 MG PO BID, (Reported) Entered as Reported by: LEANA GARCÍA on 11/30/20 1539 Labetalol HCl (Labetalol HCl) 100 Mg Tablet, 100 MG PO BID Prescribed by: ELFEGO ZARATE on 11/20/212208 Losartan Potassium (Losartan Potassium) 50 Mg Tablet, 100 MG PO DAILY Prescribed by: CHERELLE PAGE JR, MD on 12/18/20 1024 Oxycodone HCl/Acetaminophen (Percocet 10-325 mg Tablet) 1 Each Tablet, 1 TAB PO Q4H PRN for PAIN-MODERATE Prescribed by: NAOMIE CALIX on 12/14/20 0712 Vits #93/Iron Fum/FA ( Formula Tablet) 1 Each Tablet, 1 TAB PO DAILY, (Reported) Entered as Reported by: EJ VENEGAS on 02/09/17 1145 Promethazine HCl (Promethazine Tablet) 25 Mg Tablet, 25 MG PO Q6H PRN for NAUSEA/VOMITING Prescribed by: ELFGEO ZARATE on 11/20/219 Review of Systems Constitutional: see HPI EENTM: see HPI Respiratory: no symptoms reported Cardiovascular: no symptoms reported Genitourinary: no symptoms reported : Yes Musculoskeletal: no symptoms reported Skin: no symptoms reported Psychiatric/Neurological: No Symptoms Reported Past Wofgzxf-Ebjyyf-Dqeexz Hx Patient Social History Tobacco Use?: Yes Tobacco type used: Cigarettes Smoking Status: Current Everyday Smoker Use of E-Cig and/or Vaping dev: No Substance use?: No Alcohol Use?: No Immunizations Up To Date PED Vaccines UTD: Yes First/Initial COVID19 Vaccinat: NONE Second COVID19 Vaccination Xander: NONE Third COVID19 Vaccination Date: NONE COVID19 Vaccine Shipping Associate: NONE Seasonal Allergies Seasonal Allergies: No Past Medical History Surgeries: Yes (LITHOTRIPSY, URETERAL STENT; WISDOM TEETH PULLED) Section, Renal, Tonsillectomy Respiratory: No Currently Using CPAP: No Currently Using BIPAP: No Cardiac: Yes Hypertension Neurological: No Expected Date of Delivery: Aug 05, 2021 Reproductive Disorders: No Female Reproductive Disorders: Denies Sexually Transmitted Disease: No HIV/AIDS: No Genitourinary: Yes (Pyelonephritis) Kidney Stones Gastrointestinal: Yes (Chronic abdominal pain) Musculoskeletal: No Endocrine: Yes (GESTATIONAL DIABETES) Diabetes, Non-Insulin dep HEENT: Yes (DENTAL CARIES) Loss of Vision: Denies Hearing Impairment: Denies Cancer: No Psychosocial: No Integumentary: No Blood Disorders: No Adverse Reaction/Blood Tranf: No (HAS HAD BLOOD WITH NO REACTION) Family Medical History Autism G8 BROTHER Diabetes mellitus 19 FATHER FH: throat cancer 19 FATHER Hypertension 19 FATHER 19 MOTHER G8 BROTHER No Pertinent Family Hx Physical Exam Vital Signs Vital Signs - First Documented 12/31/21 19:30 Temp 36.8 Pulse 90 Resp 20 B/P (MAP) 208/150 (169) Pulse Ox 99 O2 Delivery Room Air Capillary Refill : Less Than 3 Seconds Height, Weight, BMI Height: 5'9.00" Weight: 254lbs. 2.0oz. [id number]; 38.00 BMI Method:Stated General Appearance: No Apparent Distress, WD/WN Neck: Full Range of Motion, Normal Inspection Cardiovascular: Regular Rate, Rhythm, Normal Peripheral Pulses Respiratory: No Accessory Muscle Use, No Respiratory Distress Gastrointestinal: Normal Bowel Sounds, Non Tender, Soft Extremity: Normal Capillary Refill, Normal Inspection Neurologic/Psychiatric: Alert, Oriented x3 Skin: Normal Color, Warm/Dry Progress/Results/Core Measures Results/Orders Lab Results Laboratory Tests Test 12/31/21 19:49 12/31/21 19:52 Range/Units White Blood Count 11.9 H 4.3-11.0 10^3/uL Red Blood Count 4.88 3.80-5.11 10^6/uL Hemoglobin 14.6 11.5-16.0 g/dL Hematocrit 43 35-52 % Mean Corpuscular Volume 87 80-99 fL Mean Corpuscular Hemoglobin 30 25-34 pg Mean Corpuscular Hemoglobin Concent 34 32-36 g/dL Red Cell Distribution Width 13.0 10.0-14.5 % Platelet Count 237 130-400 10^3/uL Mean Platelet Volume 10.7 9.0-12.2 fL Immature Granulocyte % (Auto) 1 % Neutrophils (%) (Auto) 66 42-75 % Lymphocytes (%) (Auto) 25 12-44 % Monocytes (%) (Auto) 6 0-12 % Eosinophils (%) (Auto) 2 0-10 % Basophils (%) (Auto) 1 0-10 % Neutrophils # (Auto) 7.8 1.8-7.8 10^3/uL Lymphocytes # (Auto) 2.9 1.0-4.0 10^3/uL Monocytes # (Auto) 0.7 0.0-1.0 10^3/uL Eosinophils # (Auto) 0.3 0.0-0.3 10^3/uL Basophils # (Auto) 0.1 0.0-0.1 10^3/uL Immature Granulocyte # (Auto) 0.1 0.0-0.1 10^3/uL Sodium Level 137 135-145 MMOL/L Potassium Level 3.9 3.6-5.0 MMOL/L Chloride Level 103 98-107 MMOL/L Carbon Dioxide Level 20 L 21-32 MMOL/L Anion Gap 14 5-14 MMOL/L Blood Urea Nitrogen 9 7-18 MG/DL Creatinine 0.84 0.60-1.30 MG/DL Estimat Glomerular Filtration Rate 98 BUN/Creatinine Ratio 11 Glucose Level 131 H 70-105 MG/DL Calcium Level 9.1 8.5-10.1 MG/DL Corrected Calcium 9.1 8.5-10.1 MG/DL Total Bilirubin 0.4 0.1-1.0 MG/DL Aspartate Amino Transf (AST/SGOT) 32 5-34 U/L Alanine Aminotransferase (ALT/SGPT) 38 0-55 U/L Alkaline Phosphatase 62 40-136 U/L Total Protein 7.4 6.4-8.2 GM/DL Albumin 4.0 3.2-4.5 GM/DL Human Chorionic Gonadotropin, Quant 81084 H <5 MIU/ML Urine Color YELLOW Urine Clarity CLEAR Urine pH 6.0 5-9 Urine Specific [place] >=1.030 1.016-1.022 Urine Protein 1+ H NEGATIVE Urine Glucose (UA) NEGATIVE NEGATIVE Urine Ketones NEGATIVE NEGATIVE Urine Nitrite NEGATIVE NEGATIVE Urine Bilirubin NEGATIVE NEGATIVE Urine Urobilinogen 0.2 < = 1.0 MG/DL Urine Leukocyte Esterase 1+ H NEGATIVE Urine RBC (Auto) 2+ H NEGATIVE Urine RBC 2-5 H /HPF Urine WBC 50-100 H /HPF Urine Squamous Epithelial Cells 10-25 H /HPF Urine Crystals NONE /LPF Urine Bacteria MODERATE H /HPF Urine Casts NONE /LPF Urine Mucus NEGATIVE /LPF Urine Culture Indicated YES My Orders Orders - PRADEEP MARTIN ECONOMIC RESEARCH ASSISTANT Cbc With Automated Diff (12/31/21 19:39) Comprehensive Metabolic Panel (12/31/21 19:39) Hcg,Quantitative (12/31/21 19:39) Ua Culture If Indicated (12/31/21 19:39) Labetalol Tablet (Normodyne Tablet) (12/31/21 19:45) Ceftriaxone (Rocephin) (12/31/21 19:45) Lidocaine 1% Inj 20 Ml (Xylocaine 1% Inj (12/31/21 19:45) Urine Culture (12/31/21 19:52) Rh Immune Globulin Rhophylac (12/31/21 20:18) Rhogam Administration (12/31/21 20:18) Medications Given in ED Current Medications Medications Dose Ordered Sig/Key Route Start Time Stop Time Status Last Admin Dose Admin Ceftriaxone Sodium 1,000 mg ONCE ONCE IM 12/31/21 19:45 12/31/21 19:46 DC 12/31/21 19:53 1,000 MG Labetalol HCl 100 mg ONCE ONCE PO 12/31/21 19:45 12/31/21 19:46 DC 12/31/21 19:53 100 MG Lidocaine HCl 2.1 ml ONCE ONCE INJ 12/31/21 19:45 12/31/21 19:46 DC 12/31/21 19:53 2.1 ML Vital Signs/I&O 12/31/21 19:30 Temp 36.8 Pulse 90 Resp 20 B/P (MAP) 208/150 (169) Pulse Ox 99 O2 Delivery Room Air Blood Pressure Mean: 169 Departure Impression Primary Impression: Bleeding in early Additional Impression: Urinary tract infection Disposition: 01 HOME, SELF-CARE Condition: Stable Departure-Patient Inst. Decision time for Depature: 21:07 Referrals: [facility] [place] (PCP/Family) Primary Care Physician Patient Instructions: Urinary Tract Infections in Adults, Bleeding in Early ED Add. Discharge Instructions: 1. Continue all current medications. Follow-up with Dr. Moy next week. Return to ER for any concerns. All discharge instructions reviewed with patient and/or family. Voiced understanding. PRADEEP MARTIN ECONOMIC RESEARCH ASSISTANT Dec 31, 2021 19:49
[2021-12-31 20:00] LABS: BILIRUBIN,URINE NEGATIVE (NEGATIVE); CLARITY,URINE CLEAR; COLOR,URINE YELLOW; GLUCOSE, URINE (UA) NEGATIVE (NEGATIVE); KETONES,URINE NEGATIVE (NEGATIVE); LEUKOCYTE ESTERASE ,URINE 1+ (NEGATIVE); NITRITE,URINE NEGATIVE (NEGATIVE); PROTEIN,URINE 1+ (NEGATIVE)
[2021-12-31 20:01] LABS: BASOPHILS # (AUTO) 0.1 10^3/uL (0.0-0.1); BASOPHILS % (AUTO) 1 % (0-10); EOSINOPHILS # (AUTO) 0.3 10^3/uL (0.0-0.3); EOSINOPHILS % (AUTO) 2 % (0-10); HEMATOCRIT 43 % (35-52); HEMOGLOBIN 14.6 g/dL (11.5-16.0); LYMPHOCYTES # (AUTO) 2.9 10^3/uL (1.0-4.0); LYMPHOCYTES % (AUTO) 25 % (12-44); MEAN CORPUSCULAR HEMOGLOBIN 30 pg (25-34); MEAN CORPUSCULAR HGB CONC 34 g/dL (32-36); MEAN CORPUSCULAR VOLUME 87 fL (80-99); MEAN PLATELET VOLUME 10.7 fL (9.0-12.2); MONOCYTES # (AUTO) 0.7 10^3/uL (0.0-1.0); MONOCYTES % (AUTO) 6 % (0-12); NEUTROPHILS # (AUTO) 7.8 10^3/uL (1.8-7.8); NEUTROPHILS % (AUTO) 66 % (42-75); PLATELET COUNT 237 10^3/uL (130-400); WHITE BLOOD COUNT 11.9 10^3/uL (4.3-11.0)
[2021-12-31 20:15] LABS: BACTERIA,URINE MODERATE /HPF; WBC,URINE 50-100 /HPF
[2021-12-31 20:22] LABS: BILIRUBIN,TOTAL 0.4 MG/DL (0.1-1.0); CALCIUM 9.1 MG/DL (8.5-10.1); CREATININE SERUM 0.84 MG/DL (0.60-1.30); POTASSIUM 3.9 MMOL/L (3.6-5.0); TOTAL PROTEIN 7.4 GM/DL (6.4-8.2)
[2021-12-31 21:59] VITALS: BP 159/103
[2021-12-31 22:20] VITALS: BP 158/106
== END 2021-12-31 22:20 | disposition home or self-care (01) ==
LOC: EDUNIT# 19:28 → ER 19:29
DX: O20.9 Hemorrhage in early pregnancy, unspecified (principal); O23.41 Unspecified infection of urinary tract in pregnancy, first trimester; N39.0 Urinary tract infection, site not specified; O10.411 Pre-existing secondary hypertension complicating pregnancy, first trimester; O99.331 Smoking (tobacco) complicating pregnancy, first trimester; F17.210 Nicotine dependence, cigarettes, uncomplicated; Z3A.09 9 weeks gestation of pregnancy; Z28.310 Unvaccinated for COVID-19
CPT/HCPCS: 36415; 80053; 81000; 84702; 85025; 87077; 87088; 87186; 96372

== ENCOUNTER 2022-07-29 15:29 | Emergency (ER) | payer MEDICAID ==
[~2022-07-29] VITALS: Ht 180 cm; Wt 108.0 kg
[~2022-07-29 15:29] MED LIST changes: +LIDO15SO3 MM; -LIDO20SO23 MM
[2022-07-29] MEDS ORDERED: fentaNYL INJ 100 MCG/2 ML AMP IVP ONE (16:15)
--- NOTE | 2022-07-29 16:20 | ED Integumentary General ---
General Chief Complaint: Post OP Complications/Pain Stated Complaint: POST OP POSS INFECTION Nursing Triage Note: PT AMB TO RM 9 PT CO OF WOUND IS INFECTED. HAS REDNESS, DRAINING SEROUS FLUID, AND PAINFUL RATES PAIN /10. HAD ON 07/17/22. WAS TOLD BY SURGEON TO TAKE OFF DRESSING, CLEAN WOUND AND APPLY NEOSPORIN. Source: patient Exam Limitations: no limitations (VIKY CHRISTIANSON APRN) History of Present Illness Date Seen by Provider: Jul 29, 2022 Time Seen by Provider: 15:50 Initial Comments 27-year-old female presents to the ER with complaints of pain, erythema, swelling to incision. Her was on July 17, 2022. She reports she had noticed redness yesterday, swelling this morning. States the redness has increased in size. She also reports green-yellow drainage. Denies fevers, but states she has been having chills at night since she has been home from the hospital. She is not breast-feeding. This is her fourth , she also had her tubes removed. The was at [facility] in [place] performed by Dr. Eliseo Duvall. Medical history includes hypertension and gestational diabetes. She currently takes labetalol, metformin, prenatals, and iron. (VIKY CHRISTIANSON APRN) Allergies and Home Medications Allergies Coded Allergies: nicotine (Verified Allergy, Intermediate, Hives, 11/21/21) Gum and Patch forms lisinopril (Verified Allergy, Mild, 07/23/19) hydrocodone (Verified Allergy, Unknown, 07/23/19) strawberry (Verified Allergy, Unknown, 07/23/19) Patient Home Medication List Home Medication List Reviewed: Yes (VIKY CHRISTIANSON APRN) Cephalexin (Cephalexin) 500 Mg Tablet, 500 MG PO TID Prescribed by: ELFEGO ZARATE on 11/20/212208 Cephalexin (Cephalexin) 500 Mg Tablet, 500 MG PO QID Prescribed by: Viky Christianson on 07/29/22 175 Docusate Sodium (Colace) 100 Mg Capsule, 100 MG PO BID Prescribed by: NAOMIE CALIX on 12/14/20 0711 Ibuprofen (Ibuprofen) 800 Mg Tablet, 800 MG PO Q6H PRN for PAIN Prescribed by: NAOMIE CALIX on 12/14/20 0711 Labetalol HCl (Labetalol HCl) 100 Mg Tablet, 100 MG PO BID, (Reported) Entered as Reported by: LEANA GARCÍA on 11/30/20 1539 Labetalol HCl (Labetalol HCl) 100 Mg Tablet, 100 MG PO BID Prescribed by: ELFEGO ZARATE on 11/20/21 220 Losartan Potassium (Losartan Potassium) 50 Mg Tablet, 100 MG PO DAILY Prescribed by: CHERELLE PAGE JR, MD on 12/18/20 1024 Oxycodone HCl/Acetaminophen (Percocet 10-325 mg Tablet) 1 Each Tablet, 1 TAB PO Q4H PRN for PAIN-MODERATE Prescribed by: NAOMIE CALIX on 12/14/20 0712 Vits #93/Iron Fum/FA ( Formula Tablet) 1 Each Tablet, 1 TAB PO DAILY, (Reported) Entered as Reported by: EJ VENEGAS on 02/09/17 1145 Promethazine HCl (Promethazine Tablet) 25 Mg Tablet, 25 MG PO Q6H PRN for NAUSEA/VOMITING Prescribed by: ELFEGO ZARATE on 11/20/212208 Sulfamethoxazole/Trimethoprim (Bactrim Ds Tablet) 1 Each Tablet, 1 EACH PO BID Prescribed by: Viky Christianson on 07/29/221755 Tramadol HCl (Tramadol HCl) 50 Mg Tablet, 50 MG PO Q4H PRN for PAIN Prescribed by: Viky Christianson on 07/29/221755 Review of Systems Review of Systems Constitutional: see HPI (VIKY CHRISTIANSON APRN) Past Xonnwnf-Vvjokd-Cokfgq Hx Patient Social History Tobacco Use?: Yes Tobacco type used: Cigarettes Smoking Status: Current Everyday Smoker Substance use?: No Alcohol Use?: No Pt feels they are or have been: No (VIKY CHRISTIANSON APRN) Immunizations Up To Date PED Vaccines UTD: Yes First/Initial COVID19 Vaccinat: NONE Second COVID19 Vaccination Xander: NONE Third COVID19 Vaccination Date: NONE (VIKY CHRISTIANSON APRN) Seasonal Allergies Seasonal Allergies: No (VIKY CHRISTIANSON APRN) Past Medical History Surgery/Hospitalization HX: X4, TUBAL, KIDNEY STENT, KIDNEYSTONE SURG, T AND A, HTN Surgeries: Yes (LITHOTRIPSY, URETERAL STENT; WISDOM TEETH PULLED) Section, Renal, Tonsillectomy Respiratory: No Currently Using CPAP: No Currently Using BIPAP: No Cardiac: Yes Hypertension Neurological: No Reproductive Disorders: No Female Reproductive Disorders: Denies Sexually Transmitted Disease: No HIV/AIDS: No Genitourinary: Yes (Pyelonephritis) Kidney Stones Gastrointestinal: Yes (Chronic abdominal pain) Musculoskeletal: No Endocrine: Yes (GESTATIONAL DIABETES) Diabetes, Non-Insulin dep HEENT: Yes (DENTAL CARIES) Loss of Vision: Denies Hearing Impairment: Denies Cancer: No Psychosocial: No Integumentary: No Blood Disorders: No Adverse Reaction/Blood Tranf: No (HAS HAD BLOOD WITH NO REACTION) (VIKY CHRISTIANSON APRN) Family Medical History Autism G8 BROTHER Diabetes mellitus 19 FATHER FH: throat cancer 19 FATHER Hypertension 19 FATHER 19 MOTHER G8 BROTHER No Pertinent Family Hx (VIKY CHRISTIANSON APRN) Physical Exam Vital Signs Vital Signs - First Documented 07/29/22 15:45 Temp 36.7 Pulse 96 Resp 17 B/P (MAP) 181/111 (134) Pulse Ox 97 (ELFEGO ORTIZ MD) Vital Signs Capillary Refill : Less Than 3 Seconds (VIKY CHRISTIANSON APRN) General Appearance: WD/WN, no apparent distress Neck: supple, normal inspection Respiratory: lungs clear, normal breath sounds, no respiratory distress, no accessory muscle use Extremities: normal range of motion, normal inspection Neurologic/Psychiatric: alert, normal mood/affect Skin: normal color, warm/dry Skin Problem Location: other (Suprapubic region) Skin Problem Character: erythema, swelling, warm, other (Large area of induration, approximately 12 cm x 6 cm. Yellow-green purulent drainage, extremely painful to touch. Incision appears to be closed.) (VIKY CHRISTIANSON APRN) Progress/Results/Core Measures Results/Orders Lab Results Laboratory Tests Test 07/29/22 16:15 Range/Units White Blood Count 12.1 H 4.3-11.0 10^3/uL Red Blood Count 3.37 L 3.80-5.11 10^6/uL Hemoglobin 9.7 L 11.5-16.0 g/dL Hematocrit 29 L 35-52 % Mean Corpuscular Volume 86 80-99 fL Mean Corpuscular Hemoglobin 29 25-34 pg Mean Corpuscular Hemoglobin Concent 33 32-36 g/dL Red Cell Distribution Width 13.4 10.0-14.5 % Platelet Count 375 130-400 10^3/uL Mean Platelet Volume 10.2 9.0-12.2 fL Immature Granulocyte % (Auto) 1 % Neutrophils (%) (Auto) 78 H 42-75 % Lymphocytes (%) (Auto) 14 12-44 % Monocytes (%) (Auto) 6 0-12 % Eosinophils (%) (Auto) 1 0-10 % Basophils (%) (Auto) 1 0-10 % Neutrophils # (Auto) 9.4 H 1.8-7.8 X 10^3 Lymphocytes # (Auto) 1.7 1.0-4.0 X 10^3 Monocytes # (Auto) 0.7 0.0-1.0 X 10^3 Eosinophils # (Auto) 0.1 0.0-0.3 10^3/uL Basophils # (Auto) 0.1 0.0-0.1 10^3/uL Immature Granulocyte # (Auto) 0.1 0.0-0.1 10^3/uL Sodium Level 140 135-145 MMOL/L Potassium Level 3.4 L 3.6-5.0 MMOL/L Chloride Level 102 98-107 MMOL/L Carbon Dioxide Level 29 21-32 MMOL/L Anion Gap 9 5-14 MMOL/L Blood Urea Nitrogen 9 7-18 MG/DL Creatinine 0.87 0.60-1.30 MG/DL Estimat Glomerular Filtration Rate 94 BUN/Creatinine Ratio 10 Glucose Level 197 H 70-105 MG/DL Lactic Acid Level 1.52 0.50-2.00 MMOL/L Calcium Level 8.9 8.5-10.1 MG/DL Corrected Calcium 9.5 8.5-10.1 MG/DL Total Bilirubin 0.3 0.1-1.0 MG/DL Aspartate Amino Transf (AST/SGOT) 10 5-34 U/L Alanine Aminotransferase (ALT/SGPT) 19 0-55 U/L Alkaline Phosphatase 100 40-136 U/L C-Reactive Protein High Sensitivity 21.19 H 0.00-0.50 MG/DL Total Protein 6.8 6.4-8.2 GM/DL Albumin 3.2 3.2-4.5 GM/DL (ELFEGO ORTIZ MD) Micro Results Microbiology 07/29/22 Blood Culture - Preliminary, Resulted No growth 07/29/22 Blood Culture - Preliminary, Resulted No growth (ELFEGO ORTIZ MD) Vital Signs/I&O 07/29/22 07/29/22 15:45 18:15 Temp 36.7 Pulse 96 88 Resp 17 17 B/P (MAP) 181/111 (134) 150/103 Pulse Ox 97 97 (ELFEGO ORTIZ MD) Blood Pressure Mean: 134 Progress Progress Note : Progress Note Patient seen and evaluated, resting comfortably in bed, no acute distress while resting, moderate distress with palpation of incision site. Incision site appears infected. Work-up initiated including CBC, CMP, lactic acid, CRP. Fentanyl ordered for pain. Patient states that she is driving and does not want to take narcotic. Toradol ordered instead. 1719 Labs reviewed. CBC shows slightly elevated WBC 12.1. Hemoglobin decreased 9.7, hematocrit low 29. Patient reports history of anemia, currently takes iron. CMP shows slightly decreased potassium 3.4. Glucose elevated 197. L actic acid normal 1.52. CRP elevated 21.19. I called and spoke with Dr. Cagle, PROJECTION WELDING MACHINE OPERATOR. He recommends treatment with cephalexin 500 mg 4 times daily for 7 days and for patient to follow-up with the surgeon who did her . He is not concerned since patient's white count is only slightly elevated. He states that CRP elevation is nonspecific especially with recent and C- section. Blood cultures x2 ordered. We will give 1 dose of IV Rocephin prior to discharge. I will also prescribe Bactrim to cover for MRSA. All results and plan of care discussed with patient. Patient agreeable with plan of care and discharge plan. Discharge instructions and return precautions provided. (VIKY CHRISTIANSON PROGRAM SUPPORT SPECIALIST) Departure Impression Primary Impression: Cellulitis Qualified Codes: L03.818 - Cellulitis of other sites Disposition: HOME, SELF-CARE Condition: Stable Departure-Patient Inst. Decision time for Depature: 17:49 (VIKY CHRISTIANSON APRN) Referrals: [facility] [place] Primary Care Physician Patient Instructions: Cellulitis (Skin Infection), Adult ED Add. Discharge Instructions: Complete full course of both antibiotics as directed, do not stop taking even if you begin to feel better. Call Dr. Duvall's office to schedule a follow-up appointment if your symptoms have not improved by Monday morning. Take tramadol every 4 hours as needed for pain. You may also take 800 mg of ibuprofen with food as needed for pain, as well as 1000 mg of Tylenol as needed for pain. Return for increase in redness, increase in swelling, fevers, or any other new, concerning, or worsening symptoms. Scripts Tramadol HCl (Tramadol HCl) 50 Mg Tablet 50 MG PO Q4H PRN for PAIN, #15 TAB 0 Refills Prov: VIKY CHRISTIANSON APRN 07/29/22 Cephalexin (Cephalexin) 500 Mg Tablet 500 MG PO QID for 7 Days, #28 TAB 0 Refills Prov: VIKY CHRISTIANSON APRN 07/29/22 Sulfamethoxazole/Trimethoprim (Bactrim Ds Tablet) 1 Each Tablet 1 EACH PO BID for 7 Days, #14 TAB 0 Refills Prov: VIKY CHRISTIANSON APRN 07/29/22 Work/School Note: Family Work Note Patient Received Medical Care In the Emergency Department On: Jul 29, 2022 Patient Will Be Able to Return to Work/School On: Jul 30, 2022 ATTENDING PHYSICIAN NOTE: I was physically present as attending physician in the emergency department during the care of this patient. I personally examined this patient and interviewed her. Viky Christianson NP consulted me on this case. Patient has a well-healed incision but has surrounding erythema, edema, and tenderness. The area is warm to the touch. There is an area of fullness and/or induration under the skin that seems at least a centimeter in thickness, 6 cm wide and 12 cm long. I advised consultation with obstetrics. Viky discussed the case with Dr. CAGLE. He recommended oral antibiotics and follow-up with the primary surgeon. I advised that Viky prescribe double coverage for both strep and staph species, especially since there is no drainage to obtain culture. Based on my examination I suspect there is seroma and/or abscess in addition to cellulitis. I did not advise attempting to open this site with incision and drainage without the presence of a surgeon. I advised patient on return precautions and to present to the primary surgeons facility if she needs to return to care. Patient was nonseptic in appearance with stable vital signs. A dose of Rocephin was given in the emergency room. (ELFEGO ORTIZ MD) Copy Copies To 1: [facility]/VIKY SOLANO APRN Jul 29, 2022 16:20 ELFEGO ORTIZ MD Aug 01, 2022 11:06
[2022-07-29] MEDS ORDERED: KETOROLAC 15 MG/ML VIAL IVP ONE (16:30)
[2022-07-29] MEDS ORDERED: ACETAMINOPHEN 500 MG TAB (TYLENOL) PO ONE (16:30)
[2022-07-29 16:31] LABS: BASOPHILS # (AUTO) 0.1 10^3/uL (0.0-0.1); BASOPHILS % (AUTO) 1 % (0-10); EOSINOPHILS # (AUTO) 0.1 10^3/uL (0.0-0.3); EOSINOPHILS % (AUTO) 1 % (0-10); HEMATOCRIT 29 % (35-52); HEMOGLOBIN 9.7 g/dL (11.5-16.0); LYMPHOCYTES # (AUTO) 1.7 X 10^3 (1.0-4.0); LYMPHOCYTES % (AUTO) 14 % (12-44); MEAN CORPUSCULAR HEMOGLOBIN 29 pg (25-34); MEAN CORPUSCULAR HGB CONC 33 g/dL (32-36); MEAN CORPUSCULAR VOLUME 86 fL (80-99); MEAN PLATELET VOLUME 10.2 fL (9.0-12.2); MONOCYTES # (AUTO) 0.7 X 10^3 (0.0-1.0); MONOCYTES % (AUTO) 6 % (0-12); NEUTROPHILS # (AUTO) 9.4 X 10^3 (1.8-7.8); NEUTROPHILS % (AUTO) 78 % (42-75); PLATELET COUNT 375 10^3/uL (130-400); WHITE BLOOD COUNT 12.1 10^3/uL (4.3-11.0)
[2022-07-29 16:36] LABS: ALBUMIN 3.2 GM/DL (3.2-4.5); POTASSIUM 3.4 MMOL/L (3.6-5.0)
[2022-07-29 16:37] LABS: CALCIUM 8.9 MG/DL (8.5-10.1)
[2022-07-29 16:38] LABS: TOTAL PROTEIN 6.8 GM/DL (6.4-8.2)
[2022-07-29 16:40] LABS: BILIRUBIN,TOTAL 0.3 MG/DL (0.1-1.0)
[2022-07-29 16:42] LABS: CREATININE SERUM 0.87 MG/DL (0.60-1.30)
[2022-07-29] MEDS ORDERED: cefTRIAXone IV/IM 1,000 MG in NS (IVPB) 50 ML IV ONE (17:30)
[2022-07-29] MEDS ORDERED: CEPHALEXIN 250 MG (KEFLEX) CAP PO ONE (17:30)
[2022-07-29] MEDS ORDERED: CEPH500T PO (17:56)
[2022-07-29] MEDS ORDERED: TRM50T PO (17:56)
[2022-07-29] MEDS ORDERED: SULF1TAB38 PO (17:56)
[2022-07-29 18:15] VITALS: BP 150/103
== END 2022-07-29 18:15 | disposition home or self-care (01) ==
LOC: EDUNIT# 15:29 → ER 15:32
DX: O86.00 Infection of obstetric surgical wound, unspecified (principal); O99.03 Anemia complicating the puerperium; O10.93 Unspecified pre-existing hypertension complicating the puerperium; O90.89 Other complications of the puerperium, not elsewhere classified; R79.82 Elevated C-reactive protein (CRP); O99.335 Smoking (tobacco) complicating the puerperium; F17.210 Nicotine dependence, cigarettes, uncomplicated; Z79.899 Other long term (current) drug therapy; Z28.310 Unvaccinated for COVID-19
CPT/HCPCS: 36415; 80053; 83605; 85025; 86141; 87040

== ENCOUNTER 2022-07-30 18:16 | Emergency (ER) | payer MEDICAID ==
[~2022-07-30] VITALS: Ht 177.8 cm; Wt 108.9 kg
[~2022-07-30 18:16] MED LIST changes: +SULF1TAB38 PO
[2022-07-30 18:53] LABS: BASOPHILS # (AUTO) 0.1 10^3/uL (0.0-0.1); BASOPHILS % (AUTO) 1 % (0-10); EOSINOPHILS # (AUTO) 0.2 10^3/uL (0.0-0.3); EOSINOPHILS % (AUTO) 2 % (0-10); HEMATOCRIT 29 % (35-52); HEMOGLOBIN 9.4 g/dL (11.5-16.0); LYMPHOCYTES # (AUTO) 2.1 10^3/uL (1.0-4.0); LYMPHOCYTES % (AUTO) 19 % (12-44); MEAN CORPUSCULAR HEMOGLOBIN 28 pg (25-34); MEAN CORPUSCULAR HGB CONC 33 g/dL (32-36); MEAN CORPUSCULAR VOLUME 86 fL (80-99); MEAN PLATELET VOLUME 10.2 fL (9.0-12.2); MONOCYTES # (AUTO) 0.7 10^3/uL (0.0-1.0); MONOCYTES % (AUTO) 7 % (0-12); NEUTROPHILS # (AUTO) 7.5 10^3/uL (1.8-7.8); NEUTROPHILS % (AUTO) 70 % (42-75); PLATELET COUNT 397 10^3/uL (130-400); WHITE BLOOD COUNT 10.7 10^3/uL (4.3-11.0)
--- NOTE | 2022-07-30 18:59 | ED Integumentary General ---
General Chief Complaint: Skin/Wound Problems Stated Complaint: INCISSION INFECTION History of Present Illness Date Seen by Provider: Jul 30, 2022 Time Seen by Provider: 18:35 Initial Comments 27 year old female with post wound dehiscence, 2 cm left of midline suprapubic . She was evaluated by this ED yesterday with labs, reviewed. Blood cultures: no growth. Patient has started her oral antibiotics: Bactrim DS and Keflex. She took Ibuprofen 600 mg 30 min [employer]. She reports being afebrile. She reports less swelling and pain at wound site, since drainage has started. by Dr. Duvall at [facility]. Patient had gestational diabetes, she has been on metformin through . Her blood sugars have been running 100-112. She has history of Hypertension, worse when anxious. Due for her labetalol. Timing/Duration: intermittent Severity: moderate Associated Symptoms: No fever Allergies and Home Medications Allergies Coded Allergies: nicotine (Verified Allergy, Intermediate, Hives, 11/21/21) Gum and Patch forms lisinopril (Verified Allergy, Mild, 07/23/19) hydrocodone (Verified Allergy, Unknown, 07/23/19) strawberry (Verified Allergy, Unknown, 07/23/19) Patient Home Medication List Home Medication List Reviewed: Yes Cephalexin (Cephalexin) 500 Mg Tablet, 500 MG PO TID Prescribed by: ELFEGO ZARATE on 11/20/212208 Cephalexin (Cephalexin) 500 Mg Tablet, 500 MG PO QID Prescribed by: Viky Gamez on 07/29/22 175 Docusate Sodium (Colace) 100 Mg Capsule, 100 MG PO BID Prescribed by: NAOMIE CALIX on 12/14/20 0711 Ibuprofen (Ibuprofen) 800 Mg Tablet, 800 MG PO Q6H PRN for PAIN Prescribed by: NAOMIE CALIX on 12/14/20 0711 Labetalol HCl (Labetalol HCl) 100 Mg Tablet, 100 MG PO BID, (Reported) Entered as Reported by: LEANA GARCÍA on 11/30/20 1539 Labetalol HCl (Labetalol HCl) 100 Mg Tablet, 100 MG PO BID Prescribed by: ELFEGO ZARATE on 11/20/212208 Losartan Potassium (Losartan Potassium) 50 Mg Tablet, 100 MG PO DAILY Prescribed by: CHERELLE PAGE JR, MD on 12/18/20 1024 Oxycodone HCl/Acetaminophen (Percocet 10-325 mg Tablet) 1 Each Tablet, 1 TAB PO Q4H PRN for PAIN-MODERATE Prescribed by: NAOMIE CALIX on 12/14/20 0712 Vits #93/Iron Fum/FA ( Formula Tablet) 1 Each Tablet, 1 TAB PO DAILY, (Reported) Entered as Reported by: EJ VENEGAS on 02/09/17 1145 Promethazine HCl (Promethazine Tablet) 25 Mg Tablet, 25 MG PO Q6H PRN for NA USEA/VOMITING Prescribed by: ELFEGO ZARATE on 11/20/21 220 Sulfamethoxazole/Trimethoprim (Bactrim Ds Tablet) 1 Each Tablet, 1 EACH PO BID Prescribed by: Viky Gamez on 07/29/221755 Tramadol HCl (Tramadol HCl) 50 Mg Tablet, 50 MG PO Q4H PRN for PAIN Prescribed by: Viky Gamez on 07/29/221755 Review of Systems Review of Systems Constitutional: no symptoms reported, see HPI; No fever, No malaise Gastrointestinal: no symptoms reported, see HPI Genitourinary: no symptoms reported, see HPI Skin: see HPI, other ( wound infection) All Other Systems Reviewed Negative Unless Noted: Yes Past Dhcptya-Qkvcpj-Yggawp Hx Patient Social History Tobacco Use?: Yes Tobacco type used: Cigarettes Smoking Status: Current Everyday Smoker Smokeless Tobacco Frequency: Never a User Use of E-Cig and/or Vaping dev: No Use of E-Cig and/or Vaping Javier: Never a User Substance use?: No Alcohol Use?: No Pt feels they are or have been: No Immunizations Up To Date PED Vaccines UTD: Yes First/Initial COVID19 Vaccinat: NONE Second COVID19 Vaccination Xander: NONE Third COVID19 Vaccination Date: NONE Seasonal Allergies Seasonal Allergies: No Past Medical History Surgery/Hospitalization HX: X4, TUBAL, KIDNEY STENT, KIDNEYSTONE SURG, T AND A, HTN Surgeries: Yes (LITHOTRIPSY, URETERAL STENT; WISDOM TEETH PULLED) Section, Renal, Tonsillectomy Respiratory: No Currently Using CPAP: No Currently Using BIPAP: No Cardiac: Yes Hypertension Neurological: No Reproductive Disorders: No Female Reproductive Disorders: Denies Sexually Transmitted Disease: No HIV/AIDS: No Genitourinary: Yes (Pyelonephritis) Kidney Stones Gastrointestinal: Yes (Chronic abdominal pain) Musculoskeletal: No Endocrine: Yes (GESTATIONAL DIABETES) Diabetes, Non-Insulin dep HEENT: Yes (DENTAL CARIES) Loss of Vision: Denies Hearing Impairment: Denies Cancer: No Psychosocial: No Integumentary: No Blood Disorders: No Adverse Reaction/Blood Tranf: No (HAS HAD BLOOD WITH NO REACTION) Family Medical History Reviewed Nursing Family Hx Autism G8 BROTHER Diabetes mellitus 19 FATHER FH: throat cancer 19 FATHER Hypertension 19 FATHER 19 MOTHER G8 BROTHER No Pertinent Family Hx Physical Exam Vital Signs Vital Signs - First Documented 07/30/22 18:24 Temp 37.1 Pulse 91 Resp 18 B/P (MAP) 163/112 (129) O2 Delivery Room Air Capillary Refill : General Appearance: WD/WN, no apparent distress Progress/Results/Core Measures Results/Orders Lab Results Laboratory Tests Test 07/30/22 18:43 07/30/22 19:11 Range/Units White Blood Count 10.7 4.3-11.0 10^3/uL Red Blood Count 3.33 L 3.80-5.11 10^6/uL Hemoglobin 9.4 L 11.5-16.0 g/dL Hematocrit 29 L 35-52 % Mean Corpuscular Volume 86 80-99 fL Mean Corpuscular Hemoglobin 28 25-34 pg Mean Corpuscular Hemoglobin Concent 33 32-36 g/dL Red Cell Distribution Width 13.7 10.0-14.5 % Platelet Count 397 130-400 10^3/uL Mean Platelet Volume 10.2 9.0-12.2 fL Immature Granulocyte % (Auto) 1 % Neutrophils (%) (Auto) 70 42-75 % Lymphocytes (%) (Auto) 19 12-44 % Monocytes (%) (Auto) 7 0-12 % Eosinophils (%) (Auto) 2 0-10 % Basophils (%) (Auto) 1 0-10 % Neutrophils # (Auto) 7.5 1.8-7.8 10^3/uL Lymphocytes # (Auto) 2.1 1.0-4.0 10^3/uL Monocytes # (Auto) 0.7 0.0-1.0 10^3/uL Eosinophils # (Auto) 0.2 0.0-0.3 10^3/uL Basophils # (Auto) 0.1 0.0-0.1 10^3/uL Immature Granulocyte # (Auto) 0.1 0.0-0.1 10^3/uL Sodium Level 140 135-145 MMOL/L Potassium Level 3.6 3.6-5.0 MMOL/L Chloride Level 103 98-107 MMOL/L Carbon Dioxide Level 28 21-32 MMOL/L Anion Gap 9 5-14 MMOL/L Blood Urea Nitrogen 9 7-18 MG/DL Creatinine 0.83 0.60-1.30 MG/DL Estimat Glomerular Filtration Rate 99 BUN/Creatinine Ratio 11 Glucose Level 131 H 70-105 MG/DL Calcium Level 9.1 8.5-10.1 MG/DL Corrected Calcium 9.7 8.5-10.1 MG/DL Total Bilirubin 0.3 0.1-1.0 MG/DL Aspartate Amino Transf (AST/SGOT) 15 5-34 U/L Alanine Aminotransferase (ALT/SGPT) 20 0-55 U/L Alkaline Phosphatase 97 40-136 U/L C-Reactive Protein High Sensitivity 18.59 H 0.00-0.50 MG/DL Total Protein 7.0 6.4-8.2 GM/DL Albumin 3.3 3.2-4.5 GM/DL Urine Color RED H Urine Clarity TURBID Urine pH 7.0 5-9 Urine Specific [place] 1.020 1.016-1.022 Urine Protein 3+ H NEGATIVE Urine Glucose (UA) 1+ H NEGATIVE Urine Ketones 1+ H NEGATIVE Urine Nitrite POSITIVE H NEGATIVE Urine Bilirubin 1+ H NEGATIVE Urine Urobilinogen >=8.0 < = 1.0 MG/DL Urine Leukocyte Esterase 2+ H NEGATIVE Urine RBC (Auto) 3+ H NEGATIVE Urine RBC 50-100 H /HPF Urine WBC 5-10 H /HPF Urine Squamous Epithelial Cells NONE /HPF Urine Crystals NONE /LPF Urine Bacteria FEW H /HPF Urine Casts NONE /LPF Urine Mucus NEGATIVE /LPF Urine Culture Indicated YES My Orders Orders - LIUDMILA JEONG Cbc With Automated Diff (07/30/22 18:38) Comprehensive Metabolic Panel (07/30/22 18:38) Hs C Reactive Protein (07/30/22 18:38) Ua Culture If Indicated (07/30/22 18:38) Wound Culture (07/30/22 18:38) Ed Iv/Invasive Line Start (07/30/22 18:51) Labetalol Tablet (Normodyne Tablet) (07/30/22 19:09) Urine Culture (07/30/22 19:11) Ed Iv/Invasive Line Start (07/30/22 19:43) Ns Iv 1000 Ml (Sodium Chloride 0.9%) (07/30/22 19:45) Vital Signs/I&O 07/30/22 18:24 Temp 37.1 Pulse 91 Resp 18 B/P (MAP) 163/112 (129) O2 Delivery Room Air Progress Progress Note : Time: 18:35 Progress Note Patient assessed. She is afebrile. She is not tachycardic or hypotensive. She is mainly concerned because the wound has been draining today. A small blood clot was removed and the wound is opened approximately 2 cm. A wound culture was obtained. She reports that the wound feels and looks better since it has been draining. Discussed with her and recommended going ahead with labs since she is here. We will also give her her evening dose of labetalol. She denies any need for medication for pain at this time. B/P labile, elevated but compatible with previous admissions. 1914 WBC and CRP decreased from yesterday. Patient continues to have minimal drainage from wound. 1999 no further complaints, dressing with no new drainage. UTI noted and + Ketones, will give 1 L NS. Patient drinking water. Stressed importance to take antibiotics, increase water intake. 2029 IVF infused. No new complaints. Discharge instructions and return precautions reviewed with the patient. Departure Impression Primary Impression: Previous section Additional Impressions: Wound dehiscence UTI (urinary tract infection) Qualified Codes: N30.01 - Acute cystitis with hematuria Disposition: HOME, SELF-CARE Condition: Improved Departure-Patient Inst. Decision time for Depature: 19:30 Referrals: [facility] (PCP/Family) Primary Care Physician Patient Instructions: Wound Care (DC), Wound Dehiscence (DC), Urinary Tract Infection, Adult (DC) Add. Discharge Instructions: Continue to take antibiotics as prescribed. You may shower daily. Clean the wound with peroxide after showering and 2 other times each day. Change your dressing every 6-8 hours or when it becomes saturated. Try to sit or lie in a position to take pressure off the wound, and have it open to air. Wash hands frequently, especially before and after doing any wound care. Clean bathroom and kitchen areas with clorox wipes. Take all home medications as prescribed. Call Dr. Duvall's office for follow up on Monday, for wound check. Increase water intake, 16 oz every 2 hours while awake. Alternate between Tylenol 680 mg and ibuprofen 600 mg every 4 hours for pain or fever If symptoms worsen, call [facility] and speak to the water purification chemist OB doctor for Dr. Duvall. All discharge instructions reviewed with patient and/or family. Voiced understanding. LIUDMILA JEONG Jul 30, 2022 18:59
[2022-07-30 19:05] LABS: ALBUMIN 3.3 GM/DL (3.2-4.5); POTASSIUM 3.6 MMOL/L (3.6-5.0)
[2022-07-30 19:06] LABS: CALCIUM 9.1 MG/DL (8.5-10.1)
[2022-07-30 19:09] LABS: BILIRUBIN,TOTAL 0.3 MG/DL (0.1-1.0)
[2022-07-30] MEDS ORDERED: LABETALOL 200 MG (NORMODYNE) TAB PO STA (19:09)
[2022-07-30 19:11] LABS: CREATININE SERUM 0.83 MG/DL (0.60-1.30)
[2022-07-30 19:28] LABS: CLARITY,URINE TURBID; GLUCOSE, URINE (UA) 1+ (NEGATIVE); KETONES,URINE 1+ (NEGATIVE); LEUKOCYTE ESTERASE ,URINE 2+ (NEGATIVE); NITRITE,URINE POSITIVE (NEGATIVE); PROTEIN,URINE 3+ (NEGATIVE)
[2022-07-30 19:36] LABS: COLOR,URINE RED
[2022-07-30 19:37] LABS: BILIRUBIN,URINE 1+ (NEGATIVE)
[2022-07-30 19:38] LABS: BACTERIA,URINE FEW /HPF; RBC,URINE 50-100 /HPF
[2022-07-30] MEDS ORDERED: NS IV 1000 ML 1,000 ML IV SCH (19:45)
[2022-07-30 20:29] VITALS: BP 137/82
== END 2022-07-30 20:29 | disposition home or self-care (01) ==
LOC: EDUNIT# 18:16 → ER 18:18
DX: O90.0 Disruption of cesarean delivery wound (principal); O10.93 Unspecified pre-existing hypertension complicating the puerperium; O86.20 Urinary tract infection following delivery, unspecified; N39.0 Urinary tract infection, site not specified; O99.335 Smoking (tobacco) complicating the puerperium; F17.210 Nicotine dependence, cigarettes, uncomplicated; Z28.310 Unvaccinated for COVID-19; Z79.899 Other long term (current) drug therapy
CPT/HCPCS: 36415; 80053; 81000; 85025; 86141; 87070; 87077; 87088; 87186; 87205

== ENCOUNTER 2022-08-15 21:06 | Emergency (ER) | payer MEDICAID ==
[~2022-08-15] VITALS: Ht 177.8 cm; Wt 106.1 kg
[2022-08-15] MEDS ORDERED: SULF1TAB38 PO (21:42)
[2022-08-15] MEDS ORDERED: CEPH500T PO (21:42)
--- NOTE | 2022-08-15 21:43 | ED Integumentary General ---
General Chief Complaint: (<6 weeks) Stated Complaint: POST OP WOUND RED/SWOLLEN Nursing Triage Note: TO ED VIA POV AND AMBULATORY TO ROOM 3. PT STATES SHE HAD C SECTION 07/17 IN [place], [place] AND WAS SEEN IN THIS ER 07/30/22 FOR "CELLULITIS OF LEFT SIDE OF C SECTION" TO WHICH SHE STATES IS NOW HEALED, BUT NOW HAS REDNESS TO RIGHT SIDE OF C SECTION INCISION. RIGHT SIDE OF C SECTION INCISION IS NOTED TO BE REDNESS WITH NO DRAINAGE ON ASSESSMENT DURING TRIAGE. History of Present Illness Date Seen by Provider: Aug 15, 2022 Time Seen by Provider: 21:27 Initial Comments Patient is a 27-year-old female who presents to the emergency room with a chief complaint of concern for infection to the right side of her scar. She states that she has had some redness and swelling over the course of the last 2 to 3 days. She is approximately [address] Duvall at [facility] in [place]. She states at the beginning of July she had similar issues to the left side of her scar. She took 2 antibiotics and it cleared up nicely. She is complaining of a significant degree of discomfort along the scar site on the right. No drainage. She states previously on the left it had drained. She denies fevers or chills. She has had slightly decreased appetite. She is not breast-feeding. Timing/Duration: week Severity: moderate Location: torso (Csection scar) Possible Cause: other ( scar) Associated Symptoms: other (Decreased appetite) Allergies and Home Medications Allergies Coded Allergies: nicotine (Verified Allergy, Intermediate, Hives, 11/21/21) Gum and Patch forms lisinopril (Verified Allergy, Mild, 07/23/19) hydrocodone (Verified Allergy, Unknown, 07/23/19) strawberry (Verified Allergy, Unknown, 07/23/19) Patient Home Medication List Home Medication List Reviewed: Yes Cephalexin (Cephalexin) 500 Mg Tablet, 500 MG PO TID Prescribed by: ELFEGO ZARATE on 11/20/212208 Cephalexin (Cephalexin) 500 Mg Tablet, 500 MG PO QID Prescribed by: Viky Gamez on 07/29/221755 Cephalexin (Cephalexin) 500 Mg Tablet, 500 MG PO TID Prescribed by: MYRIAM GODDARD on 08/15/222141 Docusate Sodium (Colace) 100 Mg Capsule, 100 MG PO BID Prescribed by: NAOMIE CALIX on 12/14/20 07 Ibuprofen (Ibuprofen) 800 Mg Tablet, 800 MG PO Q6H PRN for PAIN Prescribed by: NAOMIE CALIX on 12/14/20 07 Labetalol HCl (Labetalol HCl) 100 Mg Tablet, 100 MG PO BID, (Reported) Entered as Reported by: LEANA GARCÍA on 11/30/20 1539 Labetalol HCl (Labetalol HCl) 100 Mg Tablet, 100 MG PO BID Prescribed by: ELFEGO ZARATE on 11/20/212208 Losartan Potassium (Losartan Potassium) 50 Mg Tablet, 100 MG PO DAILY Prescribed by: CHERELLE PAGE JR, MD on 12/18/20 1024 Oxycodone HCl/Acetaminophen (Percocet 10-325 mg Tablet) 1 Each Tablet, 1 TAB PO Q4H PRN for PAIN-MODERATE Prescribed by: NAOMIE CALIX on 12/14/20 0712 Vits #93/Iron Fum/FA ( Formula Tablet) 1 Each Tablet, 1 TAB PO DAILY, (Reported) Entered as Reported by: EJ VENEGAS on 02/09/17 1145 Promethazine HCl (Promethazine Tablet) 25 Mg Tablet, 25 MG PO Q6H PRN for NAUSEA/VOMITING Prescribed by: ELFEGO ZARATE on 11/20/212208 Sulfamethoxazole/Trimethoprim (Bactrim Ds Tablet) 1 Each Tablet, 1 EACH PO BID Prescribed by: Viky Gamez on 07/29/221755 Sulfamethoxazole/Trimethoprim (Bactrim Ds Tablet) 1 Each Tablet, 1 EACH PO BID Prescribed by: MYRIAM GODDARD on 08/15/222141 Tramadol HCl (Tramadol HCl) 50 Mg Tablet, 50 MG PO Q4H PRN for PAIN Prescribed by: Viky Gamez on 07/29/221755 Review of Systems Review of Systems Constitutional: see HPI, malaise Respiratory: no symptoms reported Cardiovascular: no symptoms reported Gastrointestinal: no symptoms reported Genitourinary: no symptoms reported Musculoskeletal: no symptoms reported Skin: rash, other (Pain along scar) All Other Systems Reviewed Negative Unless Noted: Yes Past Ygiakmp-Qkvocv-Cwiyjv Hx Patient Social History Tobacco Use?: Yes Smoking Status: Current Everyday Smoker Smokeless Tobacco Frequency: Current Everyday User Substance use?: No Alcohol Use?: No Immunizations Up To Date PED Vaccines UTD: Yes First/Initial COVID19 Vaccinat: NONE Second COVID19 Vaccination Xander: NONE Third COVID19 Vaccination Date: NONE Seasonal Allergies Seasonal Allergies: No Past Medical History Surgery/Hospitalization HX: X4, TUBAL, KIDNEY STENT, KIDNEYSTONE SURG, T AND A, HTN Surgeries: Yes (LITHOTRIPSY, URETERAL STENT; WISDOM TEETH PULLED) Section, Renal, Tonsillectomy Respiratory: No Currently Using CPAP: No Currently Using BIPAP: No Cardiac: Yes Hypertension Neurological: No Reproductive Disorders: No Female Reproductive Disorders: Denies Sexually Transmitted Disease: No HIV/AIDS: No Genitourinary: Yes (Pyelonephritis) Kidney Stones Gastrointestinal: Yes (Chronic abdominal pain) Musculoskeletal: No Endocrine: Yes (GESTATIONAL DIABETES) Diabetes, Non-Insulin dep HEENT: Yes (DENTAL CARIES) Loss of Vision: Denies Hearing Impairment: Denies Cancer: No Psychosocial: No Integumentary: No Blood Disorders: No Adverse Reaction/Blood Tranf: No (HAS HAD BLOOD WITH NO REACTION) Family Medical History Autism G8 BROTHER Diabetes mellitus 19 FATHER FH: throat cancer 19 FATHER Hypertension 19 FATHER 19 MOTHER G8 BROTHER No Pertinent Family Hx Physical Exam Vital Signs Vital Signs - First Documented 08/15/22 21:13 Temp 37.0 Pulse 123 Resp 16 B/P (MAP) 147/103 (118) Pulse Ox 98 O2 Delivery Room Air Capillary Refill : Less Than 3 Seconds General Appearance: WD/WN, no apparent distress Cardiovascular: regular rate, rhythm Respiratory: no respiratory distress, no accessory muscle use Gastrointestinal: normal bowel sounds, non tender, soft Extremities: normal range of motion, non-tender, normal inspection, no pedal edema Neurologic/Psychiatric: alert, normal mood/affect, oriented x 3 Skin: normal color, warm/dry Skin Problem Location: other (Area of erythema to the right lateral aspect of the scar. The scar itself looks good. No dehiscence, no drainage. The erythema is approximately 8 cm in diameter extends over to the superior aspect of the scar down onto the mons pubis. There is an area of induration along the scar of approximately 3 cm x 5 cm. It is not fluctuant. Very tender to palpation.) Progress/Results/Core Measures Results/Orders My Orders Orders - MYRIAM GODDARD MD Ibuprofen Tablet (Motrin Tablet) (08/15/22 21:45) Cephalexin Capsule (Keflex Capsule) (08/15/22 21:45) Sulfamethoxazole/Trimet Ds Tab (Bactrim (08/15/22 21:45) Medications Given in ED Current Medications Medications Dose Ordered Sig/Key Route Start Time Stop Time Status Last Admin Dose Admin Ibuprofen 600 mg ONCE ONCE PO 08/15/22 21:45 08/15/22 21:46 DC 08/15/22 21:49 600 MG Trimethoprim/ Sulfamethoxazole 1 ea ONCE ONCE PO 08/15/22 21:45 08/15/22 21:46 DC 08/15/22 21:49 1 EA Vital Signs/I&O 08/15/22 08/15/22 21:13 21:51 Temp 37.0 Pulse 123 123 Resp 16 16 B/P (MAP) 147/103 (118) 147/103 Pulse Ox 98 98 O2 Delivery Room Air Room Air Blood Pressure Mean: 118 Progress Progress Note : Time: 21:30 Progress Note Siobg-sf-lkvk ultrasound used to evaluate the area in question along the C- section scar on the right lateral margin. There is an area of fluid subcutaneous to the scar quite large. Suspect seroma. I do not believe that incising this area would be prudent only a months post . She has follow-up with Dr. Duvall scheduled in about 2 weeks. She states the antibiotic she was on at the beginning of July, Bactrim and Keflex worked very well for her. I have recommended warm compresses and will restart these antibiotics. She is not breast-feeding. I have advised her to monitor the area for worsening redness or drainage. I suggested that she call Dr. Duvall's office tomorrow and let him know she was in the emergency department with these findings. She verbalized understanding of the plan of care. Recommended ibuprofen for pain management. Return precautions provided in both written and verbal format. All questions are sought and answered. Patient is stable for discharge. Departure Impression Primary Impression: Cellulitis Qualified Codes: L03.311 - Cellulitis of abdominal wall Additional Impression: Seroma after procedure Disposition: 01 HOME, SELF-CARE Condition: Stable Departure-Patient Inst. Decision time for Depature: 21:41 Referrals: NO,LOCAL PHYSICIAN (PCP/Family) Primary Care Physician Patient Instructions: Cellulitis (Skin Infection), Adult (DC) Add. Discharge Instructions: Use warm compresses on the area frequently throughout the day. Wash with mild soap and water, gently. Pat to dry. Take the antibiotics as directed, Bactrim DS tablets 1 twice a day for 7 days and Keflex 500 mg tablets, one 3 times a day for 10 days. Xwpr-ciw-rfjveup generic ibuprofen 3 tablets which is 600 mg every 6 hours with food as needed for pain. If you develop a fever over 101, worsening pain, redness or drainage especially after being on antibiotics for 48 hours, please return to the emergency department for reevaluation. Please contact Dr. Duvall's office regarding this new infection as he may want to see you in his clinic before your 6-week checkup. Scripts Sulfamethoxazole/Trimethoprim (Bactrim Ds Tablet) 1 Each Tablet 1 EACH PO BID for 7 Days, #14 TAB Prov: MYRIAM GODDARD MD 08/15/22 Cephalexin (Cephalexin) 500 Mg Tablet 500 MG PO TID, #30 TAB Prov: MYRIAM GODDARD MD 08/15/22 MYRIAM GODDARD MD Aug 15, 2022 21:43
[2022-08-15] MEDS ORDERED: CEPHALEXIN 250 MG (KEFLEX) CAP PO SCH (21:45)
[2022-08-15] MEDS ORDERED: IBUPROFEN 600 MG (MOTRIN) TAB PO ONE (21:45)
[2022-08-15] MEDS ORDERED: TRIM/SULFAMETH 160/800 (SEPTRA DS) TAB PO ONE (21:45)
[2022-08-15 21:51] VITALS: BP 147/103
== END 2022-08-15 21:51 | disposition home or self-care (01) ==
LOC: EDUNIT# 21:06 → ER 21:09
DX: O86.00 Infection of obstetric surgical wound, unspecified (principal); L03.311 Cellulitis of abdominal wall; O90.2 Hematoma of obstetric wound; O99.335 Smoking (tobacco) complicating the puerperium; F17.200 Nicotine dependence, unspecified, uncomplicated; Z28.310 Unvaccinated for COVID-19
CPT/HCPCS: 99283

== ENCOUNTER 2022-08-17 20:49 | Emergency (ER) | payer MEDICAID ==
[~2022-08-17] VITALS: Ht 177.8 cm; Wt 104.3 kg
[2022-08-17 21:30] LABS: BASOPHILS # (AUTO) 0.1 10^3/uL (0.0-0.1); BASOPHILS % (AUTO) 1 % (0-10); EOSINOPHILS # (AUTO) 0.3 10^3/uL (0.0-0.3); EOSINOPHILS % (AUTO) 2 % (0-10); HEMATOCRIT 40 % (35-52); HEMOGLOBIN 12.6 g/dL (11.5-16.0); LYMPHOCYTES # (AUTO) 2.6 10^3/uL (1.0-4.0); LYMPHOCYTES % (AUTO) 22 % (12-44); MEAN CORPUSCULAR HEMOGLOBIN 28 pg (25-34); MEAN CORPUSCULAR HGB CONC 32 g/dL (32-36); MEAN CORPUSCULAR VOLUME 88 fL (80-99); MEAN PLATELET VOLUME 10.2 fL (9.0-12.2); MONOCYTES # (AUTO) 0.7 10^3/uL (0.0-1.0); MONOCYTES % (AUTO) 6 % (0-12); NEUTROPHILS # (AUTO) 7.9 10^3/uL (1.8-7.8); NEUTROPHILS % (AUTO) 68 % (42-75); PLATELET COUNT 346 10^3/uL (130-400); WHITE BLOOD COUNT 11.6 10^3/uL (4.3-11.0)
[2022-08-17] MEDS ORDERED: PIPERACILLIN SODIUM/TAZOBACTAM 4.5 GM in NS (IVPB) 100 ML IV ONE (21:30)
[2022-08-17] MEDS ORDERED: NS 100 ML (IVPB) BAG IV ONE (21:30)
[2022-08-17] MEDS ORDERED: IOHEXOL 350 MG/ML 100 ML (OMNIPAQUE 350) VIAL IV ONE (21:30)
[2022-08-17] MEDS ORDERED: HOLD METFORMIN - RECEIVED CONTRAST 20 ML VIAL IV SCH (21:30)
[2022-08-17] MEDS ORDERED: VANCOMYCIN INJECTION 1,000 MG in NS (IVPB) 250 ML IV ONE (21:30)
[2022-08-17 21:39] LABS: ALBUMIN 4.4 GM/DL (3.2-4.5)
[2022-08-17 21:40] LABS: POTASSIUM 4.6 MMOL/L (3.6-5.0)
[2022-08-17 21:41] LABS: CALCIUM 10.2 MG/DL (8.5-10.1)
[2022-08-17 21:42] LABS: TOTAL PROTEIN 8.5 GM/DL (6.4-8.2)
[2022-08-17 21:44] LABS: BILIRUBIN,TOTAL 0.4 MG/DL (0.1-1.0)
[2022-08-17 21:46] LABS: CREATININE SERUM 1.25 MG/DL (0.60-1.30)
--- NOTE | 2022-08-17 22:01 | Diagnostic Imaging Report ---
PROCEDURE: CT abdomen and pelvis with contrast. TECHNIQUE: Multiple contiguous axial images were obtained through the abdomen and pelvis after administration of intravenous contrast. Auto Exposure Controls were utilized during the CT exam to meet ALARA standards for radiation dose reduction. All CT scans use one or more of the following dose optimizing techniques: automated exposure control, MA and/or KvP adjustment based on patient size and exam type or iterative reconstruction. INDICATION: Infection. FINDINGS: The lung bases are clear. The liver is normal in size and without focal lesion. Gallbladder is unremarkable. There is no biliary ductal dilatation. Spleen is normal. The pancreas and adrenal glands are unremarkable. There are several nonobstructing left renal calculi. There is also some cortical scarring in both kidneys, left greater than right. Aorta is nonaneurysmal. Bowel gas pattern is nonspecific. There is no free air. There is no ascites. Bladder is normal. There is some minimal induration in the subcutaneous tissues of the anterior pelvis. There is no evidence of an intrapelvic abscess. The may be a minimal amount of fluid within the endometrium. There is no pelvic mass, adenopathy or free fluid. The osseous structures are unremarkable. IMPRESSION: 1. Induration within the anterior pelvic soft tissues, possibly reflecting cellulitis and/or developing subcutaneous abscess; however, no evidence of intrapelvic abscess. 2. Multiple left renal calculi with some cortical scarring in the left kidney as well as some mild cortical scarring in the right kidney. 3. No other acute abnormality in the abdomen or pelvis. Dictated by: Dictated on workstation # [id number]
--- NOTE | 2022-08-17 22:23 | ED Abdominal Pain ---
General Chief Complaint: (<6 weeks) Stated Complaint: POST |SWELLING|PAIN AT INCISION Nursing Triage Note: PT AMB TO RM 6 W C/O INCISION REDNESS, PAIN, AND SWELLING. PT A&OX4, DATE OF 07/17/22. Source of Information: Patient Exam Limitations: No Limitations (ALAYNA WATERS) History of Present Illness Date Seen by Provider: Aug 17, 2022 Time Seen by Provider: 22:21 Initial Comments Patient is a 27-year-old female who is presents ED with redness and swelling around her surgical incision. Patient states she delivered July 17 at [facility] by Dr. Eliseo Duvall. She had cellulitis on the left side of the surgical scar was treated with antibiotics improvement. Start developing redness on the right side 1 week ago. She was seen here in the ED few days ago given Keflex and Bactrim. Started taking antibiotics yesterday. Increased redness and swelling and pain since yesterday. No fever, chills, bodies, nausea, vomit, diarrhea, vaginal bleeding, vaginal bleeding. Patient denies history of MRSA. She does take labetalol for hypertension. She denies chest pain, shortness of breath, cough. This is patient's fourth visit over the past month (ALAYNA WATERS) Allergies and Home Medications Allergies Coded Allergies: lisinopril (Verified Allergy, Mild, 07/23/19) hydrocodone (Verified Allergy, Unknown, 07/23/19) strawberry (Verified Allergy, Unknown, 07/23/19) Patient Home Medication List Home Medication List Reviewed: Yes (TAVON PANDYA DO) Cephalexin (Cephalexin) 500 Mg Tablet, 500 MG PO TID Prescribed by: ELFEGO ZARATE on 11/20/212208 Cephalexin (Cephalexin) 500 Mg Tablet, 500 MG PO QID Prescribed by: Viky Gamez on 07/29/22 175 Cephalexin (Cephalexin) 500 Mg Tablet, 500 MG PO TID Prescribed by: MYRIAM GODDARD on 08/15/22 214 Docusate Sodium (Colace) 100 Mg Capsule, 100 MG PO BID Prescribed by: NAOMIE CALIX on 12/14/20 0711 Ibuprofen (Ibuprofen) 800 Mg Tablet, 800 MG PO Q6H PRN for PAIN Prescribed by: NAOMIE CALIX on 12/14/20 0711 Labetalol HCl (Labetalol HCl) 100 Mg Tablet, 100 MG PO BID, (Reported) Entered as Reported by: LEANA GARCÍA on 11/30/20 1539 Labetalol HCl (Labetalol HCl) 100 Mg Tablet, 100 MG PO BID Prescribed by: ELFEGO ZARATE on 11/20/212208 Losartan Potassium (Losartan Potassium) 50 Mg Tablet, 100 MG PO DAILY Prescribed by: CHERELLE PAGE JR, MD on 12/18/20 1024 Oxycodone HCl/Acetaminophen (Percocet 10-325 mg Tablet) 1 Each Tablet, 1 TAB PO Q4H PRN for PAIN-MODERATE Prescribed by: NAOMIE CALIX on 12/14/20 0712 Vits #93/Iron Fum/FA ( Formula Tablet) 1 Each Tablet, 1 TAB PO DAILY, (Reported) Entered as Reported by: EJ VENEGAS on 02/09/17 1145 Promethazine HCl (Promethazine Tablet) 25 Mg Tablet, 25 MG PO Q6H PRN for NAUSEA/VOMITING Prescribed by: ELFEGO ZARATE on 11/20/212208 Sulfamethoxazole/Trimethoprim (Bactrim Ds Tablet) 1 Each Tablet, 1 EACH PO BID Prescribed by: Viky Gamez on 07/29/221755 Sulfamethoxazole/Trimethoprim (Bactrim Ds Tablet) 1 Each Tablet, 1 EACH PO BID Prescribed by: MYRIAM GODDARD on 08/15/222141 Tramadol HCl (Tramadol HCl) 50 Mg Tablet, 50 MG PO Q4H PRN for PAIN Prescribed by: Viky Gamez on 07/29/22 175 Review of Systems Review of Systems Constitutional: No chills, No diaphoresis, No fever, No malaise, No weakness EENTM: No Ear Pain, No Mouth Pain, No Mouth Swelling Respiratory: Denies Cough, Denies Orthopnea Cardiovascular: Denies Chest Pain Gastrointestinal: Abdominal Pain; Denies Diarrhea, Denies Nausea, Denies Vomiting Genitourinary: Denies Burning, Denies Discharge Musculoskeletal: No back pain, No joint pain Skin: change in color (ALAYNA WATERS) All Other Systems Reviewed Negative Unless Noted: Yes (ALAYNA WATERS) Past [id number] Hx Patient Social History Tobacco Use?: Yes Tobacco type used: Cigarettes Smoking Status: Current Everyday Smoker Use of E-Cig and/or Vaping dev: No Substance use?: No Alcohol Use?: No (ALAYNA WATERS) Immunizations Up To Date PED Vaccines UTD: Yes First/Initial COVID19 Vaccinat: NONE Second COVID19 Vaccination Xander: NONE Third COVID19 Vaccination Date: NONE (ALAYNA WATERS) Seasonal Allergies Seasonal Allergies: No (ALAYNA WATERS) Past Medical History Surgery/Hospitalization HX: X4, TUBAL, KIDNEY STENT, KIDNEY STONE SURG, T&A, HTN Surgeries: Yes (LITHOTRIPSY, URETERAL STENT; WISDOM TEETH PULLED) Section, Renal, Tonsillectomy Respiratory: No Currently Using CPAP: No Currently Using BIPAP: No Cardiac: Yes Hypertension Neurological: No Reproductive Disorders: No Female Reproductive Disorders: Denies Sexually Transmitted Disease: No HIV/AIDS: No Genitourinary: Yes (Pyelonephritis) Kidney Stones Gastrointestinal: Yes (Chronic abdominal pain) Musculoskeletal: No Endocrine: Yes (GESTATIONAL DIABETES) Diabetes, Non-Insulin dep HEENT: Yes (DENTAL CARIES) Loss of Vision: Denies Hearing Impairment: Denies Cancer: No Psychosocial: No Integumentary: No Blood Disorders: No Adverse Reaction/Blood Tranf: No (HAS HAD BLOOD WITH NO REACTION) (ALAYNA WATERS) Family Medical History Autism G8 BROTHER Diabetes mellitus 19 FATHER FH: throat cancer 19 FATHER Hypertension 19 FATHER 19 MOTHER G8 BROTHER No Pertinent Family Hx (ALAYNA WATERS) Physical Exam Vital Signs Vital Signs - First Documented 08/17/22 21:07 Temp 36.8 Pulse 116 Resp 20 B/P (MAP) 146/47 (80) Pulse Ox 97 O2 Delivery Room Air (TAVON PANDYA DO) Vital Signs Capillary Refill : Less Than 3 Seconds (ALAYNA WATERS) Height/Weight/BMI Height: 5'9.00" Weight: 254lbs. 2.0oz. 115.475191jt; 32.00 BMI Method:Stated General Appearance: WD/WN, no apparent distress HEENT: PERRL/EOMI, normal ENT inspection, TMs normal, pharynx normal Neck: non-tender, full range of motion, supple Respiratory: chest non-tender, lungs clear, normal breath sounds, no respiratory distress, no accessory muscle use Cardiovascular: no edema, no gallop, no JVD, tachycardia Gastrointestinal: normal bowel sounds, soft, no organomegaly, no pulsatile mass Extremities: normal range of motion, non-tender, normal inspection, no pedal edema Back: normal inspection, no CVA tenderness Pelvic: normal external exam, normal adnexa 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 No active drainage. Induration and swelling noted to the right side of the surgical scar. No fluctuant mass. Tenderness to palpate.) (ALAYNA WATERS) Focused Exam Lactate Level 08/17/22 21:21: Lactic Acid Level 0.99 (TAVON PANDYA DO) Lactic Acid Level Laboratory Tests Test 08/17/22 21:21 Lactic Acid Level 0.99 MMOL/L (0.50-2.00) (TAVON PANDYA DO) Progress/Results/Core Measures Results/Orders Lab Results Laboratory Tests Test 08/17/22 21:21 Range/Units White Blood Count 11.6 H 4.3-11.0 10^3/uL Red Blood Count 4.53 3.80-5.11 10^6/uL Hemoglobin 12.6 11.5-16.0 g/dL Hematocrit 40 35-52 % Mean Corpuscular Volume 88 80-99 fL Mean Corpuscular Hemoglobin 28 25-34 pg Mean Corpuscular Hemoglobin Concent 32 32-36 g/dL Red Cell Distribution Width 15.1 H 10.0-14.5 % Platelet Count 346 130-400 10^3/uL Mean Platelet Volume 10.2 9.0-12.2 fL Immature Granulocyte % (Auto) 0 % Neutrophils (%) (Auto) 68 42-75 % Lymphocytes (%) (Auto) 22 12-44 % Monocytes (%) (Auto) 6 0-12 % Eosinophils (%) (Auto) 2 0-10 % Basophils (%) (Auto) 1 0-10 % Neutrophils # (Auto) 7.9 H 1.8-7.8 10^3/uL Lymphocytes # (Auto) 2.6 1.0-4.0 10^3/uL Monocytes # (Auto) 0.7 0.0-1.0 10^3/uL Eosinophils # (Auto) 0.3 0.0-0.3 10^3/uL Basophils # (Auto) 0.1 0.0-0.1 10^3/uL Immature Granulocyte # (Auto) 0.1 0.0-0.1 10^3/uL Sodium Level 136 135-145 MMOL/L Potassium Level 4.6 3.6-5.0 MMOL/L Chloride Level 102 98-107 MMOL/L Carbon Dioxide Level 22 21-32 MMOL/L Anion Gap 12 5-14 MMOL/L Blood Urea Nitrogen 26 H 7-18 MG/DL Creatinine 1.25 0.60-1.30 MG/DL Estimat Glomerular Filtration Rate 61 BUN/Creatinine Ratio 21 Glucose Level 157 H 70-105 MG/DL Lactic Acid Level 0.99 0.50-2.00 MMOL/L Calcium Level 10.2 H 8.5-10.1 MG/DL Corrected Calcium 9.9 8.5-10.1 MG/DL Total Bilirubin 0.4 0.1-1.0 MG/DL Aspartate Amino Transf (AST/SGOT) 13 5-34 U/L Alanine Aminotransferase (ALT/SGPT) 22 0-55 U/L Alkaline Phosphatase 92 40-136 U/L C-Reactive Protein High Sensitivity 8.54 H 0.00-0.50 MG/DL Total Protein 8.5 H 6.4-8.2 GM/DL Albumin 4.4 3.2-4.5 GM/DL (YA,TAVON K DO) Medications Given in ED Current Medications Medications Dose Ordered Sig/Key Route Start Time Stop Time Status Last Admin Dose Admin Ibuprofen 800 mg ONCE ONCE PO 08/17/22 22:30 08/17/22 22:31 DC 08/17/22 22:55 800 MG Iohexol 100 ml ONCE ONCE IV 08/17/22 21:30 08/17/22 21:52 DC 08/17/22 21:37 80 ML Piperacillin Sod/ Tazobactam Sod 4.5 gm/Sodium Chloride 100 ml @ 200 mls/hr ONCE ONCE IV 08/17/22 21:30 08/17/22 21:59 DC 08/17/22 22:19 200 MLS/HR Sodium Chloride 100 ml ONCE ONCE IV 08/17/22 21:30 08/17/22 21:52 DC 08/17/22 21:37 80 ML Vancomycin HCl 1000 mg/Sodium Chloride 250 ml @ 250 mls/hr ONCE ONCE IV 08/17/22 21:30 08/17/22 22:29 DC 08/17/22 22:54 250 MLS/HR (YACHARYA K DO) Vital Signs/I&O 08/17/22 08/17/22 21:07 23:59 Temp 36.8 Pulse 116 91 Resp 20 20 B/P (MAP) 146/47 (80) 141/84 Pulse Ox 97 96 O2 Delivery Room Air Room Air (YA,TAVON K DO) Blood Pressure Mean: 80 Departure Communication (PCP) Differential diagnosis cellulitis versus subcutaneous abscess. She was tachycardic but afebrile. No flulike symptoms. Due to worsening cellulitis CBC, CMP, blood cultures, lactic acid was ordered. She does take labetalol for elevated blood pressure. Blood pressure 138/92. Denies any vomiting, diarrhea, chest pain, cough or shortness of breath. CBC, CMP, lactic acid. CBC showed slight elevated white blood count 11.2. Chemistry showed normal liver enzymes and kidney function. Normal lactic acid. CRP 8. Patient was started on vancomycin and Zosyn. On exam no evidence of palpable fluctuant mass but induration and swelling and erythema noted inferior of the right side of the surgical scar. CT abdomen pelvis did not note any intrapelvic abscess. Indura tion noted around the surgical scar concerning for cellulitis versus early subcutaneous abscess. Patient received ibuprofen for improvement of pain. She has no chills or appears toxic. Patient was discussed with Dr. Gleason JEWELRY APPRAISER and on-call for Dr. Eliseo Duvall. Discussed results from the CT scan and lab work. Patient was given Zosyn and vancomycin. Recommended no transfer at this time. Discussed taking Bactrim with the Keflex. Patient started Bactrim and Keflex yesterday. Do not feel she had enough of the antibiotic on board yet. Dr. Reyes Recommends following up in the next 1 to 2 days for reevaluation. If increased fever, chills, bodyaches or pain or swelling to return back to ED. If this worsens patient needs to be transferred to [place]. Continue monitoring your blood pressure at home. Continue with your labetalol (ALAYNA WATERS) Impression Primary Impression: Cellulitis Disposition: HOME, SELF-CARE Condition: Stable Departure-Patient Inst. Decision time for Depature: 22:21 (ALAYNA WATERS) Referrals: [facility] (PCP/Family) Primary Care Physician Patient Instructions: Cellulitis (Skin Infection), Adult (DC) Add. Discharge Instructions: Need to follow-up with Dr. Eliseo Duvall this week for reevaluation. Take Bactrim and Keflex as prescribed. If fever, chills, worsening pain or swelling to return to the ED All discharge instructions reviewed with patient and/or family. Voiced understanding. ATTENDING PHYSICIAN NOTE: I WAS PHYSICALLY PRESENT ER PHYSICIAN, BUT I WAS NOT INVOLVED IN ANY DECISION MAKING OR ANY CARE OF THIS PATIENT AND I AM NOT COLLABORATING PHYSICIAN. (TAVON PANDYA DO) ALAYNA WATERS Aug 17, 2022 22:23 TAVON PANDYA DO Aug 18, 2022 06:17
[2022-08-17] MEDS ORDERED: IBUPROFEN 800 MG (MOTRIN) TAB PO ONE (22:30)
[2022-08-17 23:59] VITALS: BP 141/84
== END 2022-08-17 23:59 | disposition home or self-care (01) ==
LOC: EDUNIT# 20:49 → ER 20:51
DX: O86.00 Infection of obstetric surgical wound, unspecified (principal); O10.93 Unspecified pre-existing hypertension complicating the puerperium; O99.335 Smoking (tobacco) complicating the puerperium; F17.210 Nicotine dependence, cigarettes, uncomplicated; Z79.899 Other long term (current) drug therapy; Z28.310 Unvaccinated for COVID-19
CPT/HCPCS: 36415; 74177; 80053; 83605; 85025; 86141; 87040